=== PATIENT | female | born 1980 | race Caucasian/White ===

== ENCOUNTER 2017-11-25 11:42 | Outpatient (CLI) | payer BC, SELFPAY ==
[2017-11-25 15:56] LABS: HCG Quant, Pregnancy 123 mIU/mL (1-3)
== END 2017-11-25 11:43 ==
PROVIDERS: PCP Nurse Practitioner Family; Visit Provider Obstetrics & Gynecology Gynecology
DX: Z32.01 Encounter for pregnancy test, result positive (principal)
CPT/HCPCS: 36415; 84702

== ENCOUNTER 2017-11-28 10:41 | Outpatient (CLI) | payer BC, SELFPAY ==
[2017-11-28 12:14] LABS: HCG Quant, Pregnancy 387 mIU/mL (1-3)
== END 2017-11-28 10:42 ==
PROVIDERS: PCP Nurse Practitioner Family; Visit Provider Obstetrics & Gynecology Gynecology
DX: Z32.01 Encounter for pregnancy test, result positive (principal)
CPT/HCPCS: 36415; 84702

== ENCOUNTER 2018-01-12 10:15 | Outpatient (CLI) | payer BC, SELFPAY ==
[2018-01-12 10:58] LABS: Abs Immature Grans 0.02 k/cumm (0.0-0.09); Absolute Basophil Count 0.02 k/cumm (0.0-0.2); Absolute Lymphocyte Count 1.68 k/cumm (1.2-3.4); Absolute Monocyte Count 0.47 k/cumm (0.11-0.7); Absolute Neutrophil Count 5.63 k/cumm (1.2-6.7); Basophils % 0.3; Eosinophils % 1.3; HCT 37.6 % (36.0-46.0); HGB 12.8 g/dL (12.0-15.5); Immature Grans % 0.3; Lymphocytes % 21.2; Mean Corpuscular Hemoglobin 29.8 pg (27.0-33.0); Mean Corpuscular Volume 87.6 fL (80-95); Mean Platelet Volume 10.1 fL (8.0-11.0); Monocytes % 5.9; Platelet Count 190 x1000/uL (130-400); RBC 4.29 m/cumm (4.00-5.20); RBC Distribution Width 13.2 % (11.7-14.6); White Blood Cell Count 7.92 k/cumm (4.4-10.8)
[2018-01-12 11:46] LABS: TSH (W/Ref FT4) 2.13 uIU/mL (0.358-3.74)
[2018-01-12 12:35] LABS: *AMPHETAMINES SCREEN URINE Negative (Negative); *BARBITURATES SCREEN URINE Negative (Negative); *BENZODIAZEPINES SCREEN URINE Negative (Negative); Cannabinoids THC Negative (Negative); Cocaine Screen,Urine Negative (Negative); METHADONE URINE SCREEN Negative (Negative); OPIATES URINE SCREEN Negative (Negative)
[2018-01-12 12:38] LABS: Tricyclic Antidepressants Negative (Negative)
[2018-01-13 11:25] LABS: HIV-1/2 Ag & Ab Screen Negative (NEGAT)
[2018-01-13 11:25] LABS: Hepatitis B Surface Ag Negative (NEGAT)
[2018-01-13 11:37] LABS: Rubella IgG Ab (UVM) Positive; Syphilis Serology (RPR) Negative (Negative); Varicella IgG Antibody Positive
[2018-01-13 12:13] LABS: Hepatitis C Ab w Rflx HCV PCR Negative (NEGAT)
[2018-01-15 04:06] LABS: Buprenorphine Negative; Norbuprenorphine Negative
== END 2018-01-12 10:35 ==
PROVIDERS: PCP Nurse Practitioner Family; Visit Provider Advanced Practice Midwife
DX: Z34.91 Encounter for supervision of normal pregnancy, unspecified, first trimester (principal); Z11.59 Encounter for screening for other viral diseases; Z11.4 Encounter for screening for human immunodeficiency virus [HIV]; Z01.84 Encounter for antibody response examination
CPT/HCPCS: 36415; 80307; 86787; 86803; 86850; 86900; 86901; 87340; 87389; 84443; 85025; 86592; 86762; 87086

== ENCOUNTER 2018-01-18 08:07 | Outpatient (CLI) | payer BC, SELFPAY ==
[2018-01-18 08:37] LABS: Kit/Specimen SENT
== END 2018-01-18 08:27 ==
PROVIDERS: PCP Nurse Practitioner Family; Visit Provider Obstetrics & Gynecology Gynecology
DX: O09.511 Supervision of elderly primigravida, first trimester (principal)
CPT/HCPCS: 36415

== ENCOUNTER 2018-01-18 10:25 | Outpatient (REF) | payer BC, SELFPAY ==
[2018-01-19 14:48] LABS: Chlamydia Result Negative; GC Result Negative; Specimen Description URINE
== END 2018-01-18 10:45 ==
LOC: LBN 10:25
PROVIDERS: PCP Nurse Practitioner Family; Visit Provider Advanced Practice Midwife
DX: Z34.90 Encounter for supervision of normal pregnancy, unspecified, unspecified trimester (principal); Z11.3 Encounter for screening for infections with a predominantly sexual mode of transmission
CPT/HCPCS: 87491; 87591

== ENCOUNTER 2018-01-27 01:20 | Outpatient (CLI) | payer BC, SELFPAY ==
--- NOTE | 2018-01-27 09:30 | DI.US_ITS ---
SYMPTOMS/DIAGNOSIS: PRELIMINARY MORPHOLOGY PRE CERCLAGE, H/O INCOMPETENT CERVIX , O09.299 OB ULTRASOUND: OB ultrasound was performed utilizing first trimester protocol. The biometry is consistent with a gestational age of 13 weeks 5 days and an EDC of for this single fetus. The placenta is posterior with no evidence of placenta previa. There is a normal quantity of amniotic fluid. cardiac activity observed at a rate of 158 bpm. Many abnormalities cannot be diagnosed. A normal exam does not exclude a congenital anomaly. Radiology No. [id number] LMP: Exam Date : 01/27/18 [facility] wks days on EDC ([facility]) Confirmed: HISTORY: early morphology ---- PREDICTED GESTATIONAL AGE NUMBER 13+1 weeks with a range of 12+1 weeks to 14+1 weeks. 1 Determined by 1STUS X LMP___HISTORY Info. pertaining to fetus # PLACENTA PRESENTATION Grade 0 Cephalic___ Anterior___Posterior X Breech____ Right Left Transverse(head right___ Fundal___Low-lying___Previa___ Transverse(head left___ Varying X BIOMETRY AMNIOTIC FLUID BPD: 23 mm 13+6 weeks Normal HC: 92 mm 14+1 weeks AC: 70 mm 13+4 weeks FL: 11 mm 13+2 weeks AMNIOTIC FLUID INDEX >26 WK CRL: mm weeks Cisterna Magna: 2 mm CI: 75 RUQ: LUQ Cerebellum: 1.2 cm EFW: grams Percentile RLQ: LLQ Total: cms Composite AGE= 13+5 wks EDC by US 07/30/18 BIOPHYSICAL PROFILE ANATOMY IDENTIFIED SCORE 0/2 Heart: 4-Chamber___Rate: 158 BPM LVOT: RVOT: Amniotic Fluid(>2cms)____ Stomach: X Kidneys: X Respirations (>30 secs) Bladder: X Post. Fossa: Body Flex/Extension 3 vessel cord: Ventricles: cord insertion: X Lips:____ Extremity Flex/Extension spinal morphology: Nose: Total Score= Palate: NS=not seen Comments: Limited visualization due to patient body habitus and patient too early for survey.
== END 2018-01-27 01:40 ==
PROVIDERS: PCP Nurse Practitioner Family; Visit Provider Obstetrics & Gynecology Gynecology
DX: O09.291 Supervision of pregnancy with other poor reproductive or obstetric history, first trimester (principal); O34.31 Maternal care for cervical incompetence, first trimester
CPT/HCPCS: 76801

== ENCOUNTER 2018-01-30 16:25 | Outpatient (CLI) | payer BC, SELFPAY ==
[2018-01-30 17:23] LABS: HCT 34.9 % (36.0-46.0); HGB 11.9 g/dL (12.0-15.5); Mean Corp. HGB Concentration 34.1 g/dL (32.0-36.0); Mean Corpuscular Hemoglobin 29.5 pg (27.0-33.0); Mean Corpuscular Volume 86.6 fL (80-95); Mean Platelet Volume 10.1 fL (8.0-11.0); Platelet Count 225 x1000/uL (130-400); RBC 4.03 m/cumm (4.00-5.20); RBC Distribution Width 13.1 % (11.7-14.6); White Blood Cell Count 9.08 k/cumm (4.4-10.8)
== END 2018-01-30 16:45 ==
PROVIDERS: PCP Nurse Practitioner Family; Visit Provider Obstetrics & Gynecology Gynecology
DX: Z01.818 Encounter for other preprocedural examination (principal); Z01.84 Encounter for antibody response examination; O34.31 Maternal care for cervical incompetence, first trimester
CPT/HCPCS: 36415; 85027; 86850; 86900; 86901

== ENCOUNTER 2018-02-01 07:47 | Day surgery (SDC) | payer BC, SELFPAY ==
--- NOTE | 2018-01-31 17:30 | HPE_ITS ---
Date of service: 01/30/18 Time of Service: 17:29 Assessment and Plan (1) Hypothyroidism (acquired): Current visit: Yes Status: Chronic (2) Hx of incompetent cervix, currently : Current visit: No Status: Suspected (3) BMI 45.0-49.9, adult: Current visit: No Status: Chronic (4) Preop examination: Current visit: No Status: Acute I reviewed the risks and benefits of the procedure including the risk of infection damage to bladder or bowel and the risk of causing labor possibly resulting in miscarriage baby patient signed informed consent her questions were answered she will be n.p.o. after midnight. History of Present Illness Chief Complaint: Preoperative history and physical Narrative: Patient is a 37-year-old 010 female currently 13 weeks 5 days estimated gestational age who presents for a preoperative history and physical in anticipation of a Alvarez's cervical cerclage to be performed on 02/01/18. Patient has a history of an incompetent cervix and 08/12/2016 delivered a nonviable fetus at 18 weeks 6 days after she presented with painless cervical dilatation after a IVF conception. She was counseled at that time and at the start of this that she would benefit from a cervical cerclage. Patient has undergone dating by first trimester ultrasound her estimated date of delivery 08/03/2018. She underwent [place] testing that showed low probability for aneuploidy and had a normal first trimester ultrasound. Her current OB issues: 1) elevated BMI for which she takes 81 mg of low-dose aspirin daily. 2) hypothyroidism currently stable Review of Systems Constitutional Reports system reviewed and no additional complaints, except as docu ENT Reports system reviewed and no additional complaints, except as docu Cardiovascular Reports as per HPI Respiratory Reports as per HPI Gastrointestinal Reports as per HPI Genitourinary Reports system reviewed and no additional complaints, except as docu PFSH Family History Mother Essential hypertension Trigeminal neuralgia of right side of face Lupus (systemic lupus erythematosus) Father Diabetes Essential hypertension Medical History Hx of female infertility BMI 45.0-49.9, adult (Chronic) PCOS (polycystic ovarian syndrome) (Chronic) Hypothyroidism (acquired) (Chronic) Social History adopted: No foster care: No household members: spouse, children and other details: Dariel, stepdaughter current occupational status: employed and other details: [employer] 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 Smoking/Tobacco Use Status: Never alcohol intake: current alcohol intake frequency: a few times a month substance use type: does not use special josef needs: No agree to transfusion: Yes seatbelt use: always helmet use: Yes drive intox or ride w/ intox log driver: No water heater temp set < 120 deg: Yes working smoke detector in home: Yes fire extinguisher in home: Yes carbon monox detector in home: Yes firearms in home: No do you feel safe at home: Yes victim of physical abuse: No victim of emotional abuse: No victim of sexual abuse: No Surgical History Colonoscopy - IV Sedation (12/01/15) History History 2 2 Para Hx # Term Pregnancies 0 Multiple births Hx # Pregnancies Ectopic pregnancies AB induced Hx Number of Living Children 0 AB spontaneous 1 Past Pregnancies Del. Date GA/Weeks # Outcome Route Wgt Sex Labor Lgth Anesthesia Location Prov Complic 08/12/16 19 No Successful vaginal Male Delivery Date: 08/12/16 On 01/18/18 @ 18:11 Anya Bradford IVF . Painless cervical dilatation at 18-6/7 weeks. Membranes prolapsing into the vagina at time of initial presentation. Went on to have an induction of labor delivered a non-viable named Amador Catherine. Meds Home Medications Medication Instructions Recorded Confirmed Type omega-3 fatty acids-fish oil [Fish 1 tab PO HS 03/16/14 01/30/18 History Oil] metformin 1,000 mg PO Q12H #180 tab 11/15/17 01/30/18 Rx levothyroxine 100 mcg PO DAILY 30 Days #90 11/23/17 01/30/18 Rx tab-cap aspirin [Lo-Dose Aspirin Ec] 81 mg PO DAILY tab-cap 12/06/17 01/30/18 History cholecalciferol (vitamin D3) 800 unit PO DAILY 12/06/17 01/30/18 History [Vitamin D3] vit,[id number] 1 tab-cap PO DAILY tab-cap 12/06/17 01/30/18 History [Prenatabs Rx Tablet] inositol 500 mg tablet 1,000 mg PO BID tab 01/12/18 01/30/18 History Allergies Allergy/AdvReac Type Severity Reaction Status Date / Time pollen extracts AdvReac Intermediate Unverified 01/30/18 15:37 cilantro Allergy Intermediate Numb Uncoded 01/30/18 15:37 mouth, hives cigarette smoke AdvReac Intermediate congestion Uncoded 01/30/18 15:37 dust AdvReac Intermediate congestion Uncoded 01/30/18 15:37 Exam Const General: cooperative, healthy appearing and comfortable Nutritional Appearance: obese Orientation: alert, awake and oriented x3 Neck Neck: normal visual inspection Thyroid: thyroid normal Chest Chest: normal inspection of the chest Resp Effort & Inspection: normal respiratory effort Auscultation: clear to auscultation bilaterally Cardio Palpation: normal PMI Rate: regular rate Rhythm: regular rhythm Heart Sounds: S1 normal and S2 normal GI Inspection: normal to inspection Palpation: soft and no hepatosplenomegaly General: deferred OB/External & Speculum: other
[2018-02-01 08:18] VITALS: BP 114/76; PULSE 93; RESP 18; TEMP 36.7; O2SAT 98
[2018-02-01] MEDS: Lactated Ringers 1,000 ML 125 ML IV (08:25)
[2018-02-01] MEDS: Bupivacaine 0.25% Pres-Free 30 ML VIAL (09:47)
--- NOTE | 2018-02-01 11:21 | W.PM.DSUDISC ---
Discharge Plan Disposition Patient Disposition: HOME Condition: Good Discharge Details Attending Provider: Anya Bradford Primary Care Provider: Cata Hoskins Home Meds and New Rx's Prescriptions: No Action inositol 500 mg tablet 1,000 mg PO BID RF: 0 metformin 1,000 MG tablet 1,000 mg PO Q12H Qty: 180 RF: 4 levothyroxine 100 MCG tablet 100 mcg PO DAILY 30 Days Qty: 90 RF: 3 aspirin [Lo-Dose Aspirin] 81 MG tablet,delayed release (DR/EC) 81 mg PO DAILY RF: 0 vit,[id number] [Prenatabs Rx] 1 EACH tablet 1 tab-cap PO DAILY RF: 0 cholecalciferol (vitamin D3) [Vitamin D3] 400 UNIT tablet 800 unit PO DAILY RF: 0 omega-3 fatty acids-fish oil [Fish Oil] 1 EACH capsule 1 tab PO HS RF: 0 Discharge Instructions Additional Instructions: Postoperative Instructions Outpatient Gynecology Because there will be medication in your system for the next 24 hours, you may feel a little sleepy. Your coordination will be affected. Therefore: Do not drive or operate dangerous equipment for 24 hours. Do not drink alcoholic beverages for 24 hours (not even beer). Plan to go home and rest for the day. Rest, drink liquids and eat lightly for the rest of the day. Do not plan to return to normal activity for two full days. Some women require 5-7 days to feel 100 percent. Arrange to have someone stay with you for the rest of the day. You may have a sore throat or hoarseness after surgery. This usually lasts a short time and is relieved by drinking liquids. If hoarseness persists longer than 24 hours, please contact the anesthesia department by calling the hospital. Take Tylenol for cramping. If that does not work, you may be too active so try cutting back on your activities. You should be able to urinate as usual following the surgery. You may spot for a week after surgery. Please call the office for an appointment for [address] Bradford. You may take a shower or bath. Use pads, not tampons. Please report any of the following conditions or any questions regarding your condition to your doctor and the Day Surgery Unit: Increased drainage or foul smelling drainage. Temperature of 101 F or above. Excessive pain or cramping not relieved with Tylenol and rest. If you are unable to contact your doctor, contact the hospital at [phone]. Dr. Bradford's pager: [phone]. Cell phone [phone]. Continue all your regular medications unless directed otherwise. Revised 09/15/10 Activity:: Activity as Tolerated Diet:: As Tolerated Discharge Orders Discharge Orders: Discharge Order (Routine); Ordered 02/01/18 Ordered By: Anya Bradford DS: Diagnosis Discharge Diagnosis (1) Hypothyroidism (acquired): Status: Chronic (2) Hx of incompetent cervix, currently : Status: Suspected (3) BMI 45.0-49.9, adult: Status: Chronic (4) Alvarez cerclage present in second trimester: Status: Acute
--- NOTE | 2018-02-01 11:26 | PDOC.DSDIS_ITS ---
Discharge Plan Disposition Patient Disposition: HOME Condition: Good Discharge Details Attending Provider: Anya Bradford Primary Care Provider: Cata Hoskins Home Meds and New Rx's Prescriptions: No Action inositol 500 mg tablet 1,000 mg PO BID RF: 0 metformin 1,000 MG tablet 1,000 mg PO Q12H Qty: 180 RF: 4 levothyroxine 100 MCG tablet 100 mcg PO DAILY 30 Days Qty: 90 RF: 3 aspirin [Lo-Dose Aspirin] 81 MG tablet,delayed release (DR/EC) 81 mg PO DAILY RF: 0 vit,[id number] [Prenatabs Rx] 1 EACH tablet 1 tab-cap PO DAILY RF: 0 cholecalciferol (vitamin D3) [Vitamin D3] 400 UNIT tablet 800 unit PO DAILY RF: 0 omega-3 fatty acids-fish oil [Fish Oil] 1 EACH capsule 1 tab PO HS RF: 0 Discharge Instructions Additional Instructions: Postoperative Instructions Outpatient Gynecology * Because there will be medication in your system for the next 24 hours, you may feel a little sleepy. Your coordination will be affected. Therefore: Do not drive or operate dangerous equipment for 24 hours. Do not drink alcoholic beverages for 24 hours (not even beer). Plan to go home and rest for the day. * Rest, drink liquids and eat lightly for the rest of the day. Do not plan to return to normal activity for two full days. Some women require 5-7 days to feel 100 percent. * Arrange to have someone stay with you for the rest of the day. * You may have a sore throat or hoarseness after surgery. This usually lasts a short time and is relieved by drinking liquids. If hoarseness persists longer than 24 hours, please contact the anesthesia department by calling the hospital. * Take Tylenol for cramping. If that does not work, you may be too active so try cutting back on your activities. * You should be able to urinate as usual following the surgery. * You may spot for a week after surgery. * Please call the office for an appointment for [address] Bradford. * You may take a shower or bath. Use pads, not tampons. * Please report any of the following conditions or any questions regarding your condition to your doctor and the Day Surgery Unit: Increased drainage or foul smelling drainage. Temperature of 101 F or above. Excessive pain or cramping not relieved with Tylenol and rest. * If you are unable to contact your doctor, contact the hospital at . Dr. Bradford's pager: [phone]. Cell phone [phone]. * Continue all your regular medications unless directed otherwise. Revised 09/15/10 Activity:: Activity as Tolerated Diet:: As Tolerated Discharge Orders Discharge Orders: Discharge Order (Routine); Ordered 02/01/18 Ordered By: Anya Bradford DS: Diagnosis Discharge Diagnosis (1) Hypothyroidism (acquired): Status: Chronic (2) Hx of incompetent cervix, currently : Status: Suspected (3) BMI 45.0-49.9, adult: Status: Chronic (4) Alvarez cerclage present in second trimester: Status: Acute
[2018-02-01 11:35] VITALS: BP 111/72; PULSE 80; RESP 18; TEMP 36.8; O2SAT 99
[2018-02-01 13:40] VITALS: BP 101/64; PULSE 89; RESP 16; TEMP 37.1; O2SAT 99
--- NOTE | 2018-02-02 16:54 | ROE_ITS ---
DATE OF PROCEDURE: February 01, 2018 PREOPERATIVE DIAGNOSIS: History of incompetent cervix. POSTOPERATIVE DIAGNOSIS: Same. PROCEDURE: Alvarez cerclage. SURGEON: Anya Bradford M.D. VULNERABILITY RESEARCHER: None. ANESTHESIA: Spinal, Nasir Chacon CRNA FLUIDS: 500 cc of crystalloid. URINE OUTPUT: 75 cc of clear ismael urine out via in and out catheterization during the procedure. ESTIMATED BLOOD LOSS: 50 cc INDICATIONS: Sftaru-wqxlh-aojw-old, G2, P0 female with a history of a miscarriage at 18 weeks 6 days in August of 2016. The patient presented to the hospital with painless cervical dilatation and went on to deliver a nonviable fetus. She was advised to have a cerclage during this . FINDINGS AT THE TIME OF SURGERY: The cervix was approximately 3 cm in length with a prominent ectrop ion that bleeds easily to touch. heart tones in the 140s prior to and after the procedure. DESCRIPTION OF PROCEDURE: The patient was taken to the Operating Room where a low spinal anesthesia was administered without difficulty. She was then placed in the dorsal lithotomy position in [facility]. SCDs were in place. A bivalve speculum was placed into the vagina after the patient had been prepped and draped in the usual sterile fashion. The anterior lip of the cervix at the 12 o'cl ock position was held with a ring forceps. This allowed gentle traction to be placed on the cervix a nd the first suture using the 5-mm Mersilene tape was inserted and pulled through. A series of purse string sutures was then performed, two on the 11 and 7 o'clock position on the patient's right side, another at the 6 o'clock position, and two more on the 4 and 2 o'clock position. The Mersilene tape was then cinched tight and tied with the knot at the 12 o'clock position. The instruments were remov ed from the patient's vagina. There was no evidence of bleeding from the external os. There was ble eding from the patient's ectropion that was controlled with application of a sterile 4x4. In and out catheterization was performed prior to the beginning to the procedure and after the procedure as pre viously noted. The patient was then placed in the dorsal supine position and transported to the [facility] area in stable condition. All sponge, lap, and needle counts were correct x2.
== END 2018-02-01 15:07 | disposition home or self-care (01) ==
PROVIDERS: PCP Nurse Practitioner Family; Visit Provider Obstetrics & Gynecology Gynecology
PROC: 0UVC7ZZ Restriction of Cervix, Via Natural or Artificial Opening (ICD-10-PCS; CPT 57700; principal; 2018-02-01 08:30)
DX: O34.31 Maternal care for cervical incompetence, first trimester (principal); Z3A.13 13 weeks gestation of pregnancy; O99.211 Obesity complicating pregnancy, first trimester; E66.9 Obesity, unspecified; Z68.42 Body mass index [BMI] 45.0-49.9, adult; O99.281 Endocrine, nutritional and metabolic diseases complicating pregnancy, first trimester; N86 Erosion and ectropion of cervix uteri; E03.9 Hypothyroidism, unspecified
CPT/HCPCS: 59320; NC

== ENCOUNTER 2018-02-10 12:04 | Outpatient (CLI) | payer BC, SELFPAY ==
[2018-02-10 13:17] LABS: Glucose,1 Hr (Glucola) 117 mg/dL (80-140)
== END 2018-02-10 12:24 ==
PROVIDERS: Advanced Practice Midwife; PCP Nurse Practitioner Family; Visit Provider Obstetrics & Gynecology Gynecology
DX: Z34.91 Encounter for supervision of normal pregnancy, unspecified, first trimester (principal)
CPT/HCPCS: 36415; 82950

== ENCOUNTER 2018-02-23 00:28 | Outpatient (CLI) | payer BC, SELFPAY ==
--- NOTE | 2018-02-23 07:41 | DI.US_ITS ---
SYMPTOM/DIAGNOSIS: S/P CERCLAGE, ? CERV LENGTH O34.30 LIMITED OBSTETRICAL ULTRASOUND: 02/23/18 Limited ultrasound was performed to evaluate cervical length. Cervical length is measured at 5.1 cm. The placenta is posterior with no evidence of placenta previa. There is a normal quantity of amniotic fluid. cardiac activity observed at a rate of 155 BPM. Many abnormalities cannot be diagnosed. A normal exam does not exclude a congenital anomaly. Radiology No. [id number] LMP: Exam Date: 02.23.2018 [facility] wks days on EDC ([facility]) Confirmed: HISTORY: CERCLAGE PLACED 02/01 ---- PREDICTED GESTATIONAL AGE NUMBER 17 - weeks with a range of week to weeks. 1 Determined by___1STUS___LMP___HISTORY Info. pertaining to fetus # PLACENTA PRESENTATION Grade I Cephalic_XX__ Anterior___Posterior__XX_ Breech____ Right Left Transverse(head right___ Fundal___Low-lying___Previa___ Transverse(head left___ Varying BIOMETRY AMNIOTIC FLUID BPD: mm weeks Normal HC: mm weeks AC: mm weeks FL: mm weeks AMNIOTIC FLUID INDEX >26 WK CRL: mm weeks Cisterna Magna: mm CI: RUQ: LUQ Cerebellum: cm EFW: grams Percentile RLQ: LLQ Total: cms Composite AGE= wks EDC by US BIOPHYSICAL PROFILE ANATOMY IDENTIFIED SCORE 0/2 Heart: 4-Chamber___Rate:BPM__155 BPM___ LVOT: RVOT: Amniotic Fluid(>2cms)____ Stomach: Kidneys: Respirations (>30 secs) Bladder: Post. Fossa: Body Flex/Extension 3 vessel cord: Ventricles: cord insertion: Lips:____ Extremity Flex/Extension spinal morphology: Nose: Total Score= Palate: NS=not seen
== END 2018-02-23 00:48 ==
PROVIDERS: PCP Nurse Practitioner Family; Visit Provider Obstetrics & Gynecology Gynecology
DX: O34.32 Maternal care for cervical incompetence, second trimester (principal)
CPT/HCPCS: 76815

== ENCOUNTER 2018-03-22 10:48 | Inpatient (IN) | payer BC, SELFPAY ==
[2018-03-22 10:52] VITALS: BP 149/117; PULSE 91; RESP 16; TEMP 36.8; O2SAT 96
--- NOTE | 2018-03-22 10:52 | W.ED.GENAD ---
Discharge Plan Discharge Details Chief Complaint: PsychEval Primary Care Provider: Cata Hoskins ED Provider: Maureen Alfonso Home Meds and New Rx's Prescriptions: No Action levothyroxine 100 MCG tablet 100 mcg PO DAILY 30 Days Qty: 90 RF: 3 aspirin [Lo-Dose Aspirin] 81 MG tablet,delayed release (DR/EC) 81 mg PO DAILY RF: 0 vit,[id number] [Prenatabs Rx] 1 EACH tablet 1 tab-cap PO DAILY RF: 0 cholecalciferol (vitamin D3) [Vitamin D3] 400 UNIT tablet 800 unit PO DAILY RF: 0 omega-3 fatty acids-fish oil [Fish Oil] 1 EACH capsule 1 tab PO HS RF: 0 HPI General Date/Time Provider Initiated Documentation: 03/22/18 10:52. Related Data Home Medications Medication Instructions Recorded Confirmed omega-3 fatty acids-fish oil [Fish 1 tab PO HS 03/16/14 03/20/18 Oil] levothyroxine 100 mcg PO DAILY 30 Days #90 11/23/17 03/20/18 tab-cap aspirin [Lo-Dose Aspirin Ec] 81 mg PO DAILY tab-cap 12/06/17 03/20/18 cholecalciferol (vitamin D3) 800 unit PO DAILY 12/06/17 03/20/18 [Vitamin D3] vit,[id number]-qmoxr 1 tab-cap PO DAILY tab-cap 12/06/17 03/20/18 [Prenatabs Rx Tablet] Previous Rx's Medication Instructions Recorded levothyroxine 100 mcg PO DAILY 30 Days #90 11/23/17 tab-cap Allergies Allergy/AdvReac Type Severity Reaction Status Date / Time pollen extracts AdvReac Intermediate Unverified 03/20/18 08:05 cilantro Allergy Severe Numb Uncoded 03/20/18 08:05 mouth, hives cigarette smoke AdvReac Intermediate congestion Uncoded 03/20/18 08:05 dust AdvReac Intermediate congestion Uncoded 03/20/18 08:05 Review of Systems Review of Systems Constitutional: denies fevers Eyes: denies eye pain ENT: denies facial pain, dental pain, sore throat Cardiovascular: denies chest pain, edema Respiratory: denies SOB, cough GI: denies abdominal pain, vomiting, diarrhea : denies flank pain MSK: denies back pain, neck pain, arthralgias, myalgias Skin: denies rash Neuro: denies headaches, lightheadedness, weakness PFSH Antonio chen present (Acute) Hx of female infertility BMI 45.0-49.9, adult (Chronic) PCOS (polycystic ovarian syndrome) (Chronic) Hypothyroidism (acquired) (Chronic) Family History Mother Essential hypertension Trigeminal neuralgia of right side of face Lupus (systemic lupus erythematosus) Father Diabetes Essential hypertension Colonoscopy - IV Sedation (12/01/15) Family History Mother Essential hypertension Trigeminal neuralgia of right side of face Lupus (systemic lupus erythematosus) Father Diabetes Essential hypertension Medical History Antonio chen present (Acute) Hx of female infertility BMI 45.0-49.9, adult (Chronic) PCOS (polycystic ovarian syndrome) (Chronic) Hypothyroidism (acquired) (Chronic) Social History adopted: No foster care: No household members: spouse, children and other details: brea Vieira current occupational status: employed and other details: [employer] 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 Smoking/Tobacco Use Status: Never alcohol intake: current alcohol intake frequency: a few times a month substance use type: does not use special josef needs: No agree to transfusion: Yes seatbelt use: always helmet use: Yes drive intox or ride w/ intox route delivery service driver: No water heater temp set < 120 deg: Yes working smoke detector in home: Yes fire extinguisher in home: Yes carbon monox detector in home: Yes firearms in home: No do you feel safe at home: Yes victim of physical abuse: No victim of emotional abuse: No victim of sexual abuse: No Surgical History Colonoscopy - IV Sedation (12/01/15) Social History adopted: No foster care: No household members: spouse, children and other details: brea Vieira current occupational status: employed and other details: [employer] 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 Smoking/Tobacco Use Status: Never alcohol intake: current alcohol intake frequency: a few times a month substance use type: does not use special josef needs: No agree to transfusion: Yes seatbelt use: always helmet use: Yes drive intox or ride w/ intox route delivery service driver: No water heater temp set < 120 deg: Yes working smoke detector in home: Yes fire extinguisher in home: Yes carbon monox detector in home: Yes firearms in home: No do you feel safe at home: Yes victim of physical abuse: No victim of emotional abuse: No victim of sexual abuse: No Exam Narrative Exam Narrative: Constitutional: well and psc-kehgt-ilwzemaqo, pleasant, conversing normally HENT: head atraumatic, normocephalic normal inspection, mucous membranes moist Eyes: conjunctiva normal, sclera normal, pupils 3mm b/l Neck: no stridor, normal ROM, trachea midline Chest: normal inspection Resp: normal work of breathing, LCTAB Cardio: normal rate, normal rhythm, no murmur appreciated GI: abdomen soft, non-tender, non-distended Back: normal inspection, no rash Skin: warm, dry, normal color, no rash Neuro: alert, not altered, grossly non-focal, normal tone Ext: no edema Psych: normal mood, normal affect, normal behavior
[2018-03-22 11:47] LABS: Abs Immature Grans 0.03 k/cumm (0.0-0.09); Absolute Basophil Count 0.02 k/cumm (0.0-0.2); Absolute Eosinophil Count 0.06 k/cumm (0.0-0.7); Absolute Lymphocyte Count 1.45 k/cumm (1.2-3.4); Absolute Monocyte Count 0.69 k/cumm (0.11-0.7); Absolute Neutrophil Count 7.55 k/cumm (1.2-6.7); Basophils % 0.2; Eosinophils % 0.6; HCT 34.8 % (36.0-46.0); HGB 11.9 g/dL (12.0-15.5); Immature Grans % 0.3; Lymphocytes % 14.8; Mean Corp. HGB Concentration 34.2 g/dL (32.0-36.0); Mean Corpuscular Hemoglobin 29.8 pg (27.0-33.0); Mean Platelet Volume 9.6 fL (8.0-11.0); Neutrophils % 77.1; Platelet Count 218 x1000/uL (130-400); RBC Distribution Width 13.6 % (11.7-14.6)
--- NOTE | 2018-03-22 11:53 | W.ED.GENAD ---
Discharge Plan Discharge Details Chief Complaint: PsychEval Primary Care Provider: Cata Hoskins ED Provider: Vicenta Ledezma Home Meds and New Rx's Prescriptions: No Action levothyroxine 100 MCG tablet 100 mcg PO DAILY 30 Days Qty: 90 RF: 3 aspirin [Lo-Dose Aspirin] 81 MG tablet,delayed release (DR/EC) 81 mg PO DAILY RF: 0 [id number] [Prenatabs Rx] 1 EACH tablet 1 tab-cap PO DAILY RF: 0 cholecalciferol (vitamin D3) [Vitamin D3] 400 UNIT tablet 800 unit PO DAILY RF: 0 omega-3 fatty acids-fish oil [Fish Oil] 1 EACH capsule 1 tab PO HS RF: 0 Medical Decision Making <WINSTON Granger - Last Filed: 03/23/18 08:00> Patient is a 37-year-old female, accompanied by coworker, with chief complaint of suicidal ideation. Patient is currently 20 weeks , . She reports she began having suicidal ideation for 5 days ago over the weekend. Over the weekend, she developed a plan to hang herself at home. Does not feel safe being at home living by herself. Reports she has had a large amount of stressors recently. No particular, the patient reports she is been very worried as around this time last year, she lost a that was near the same time in course. While this has been going quite well, she continues to be very concerned and anxious regarding her . She reports that yesterday, her yard supervisor, reported that she would not be renewing the patient's contract and that she would need to find a new job. 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 She reports when she was discussing this with her last night, her advised that she begin looking for jobs in [place] with her parents live. Has been expressed that she would be moving to [place] without him. But these things greatly upset the patient which exacerbated her depression, anxiety and suicidal thoughts and she had Chivo been having. On exam, patient seems teary and anxious. She is appropriate and seems to have good insight. She is forward thinking and wants to seek help so that she is able to be safe and have a successful . Does not feel suicidal at this moment but is concerned about being by herself and the impulsivity that she may have. I will consult with mental health as well as Dr. Bradford. Plan to obtain laboratory evaluation. I did note that the patient's blood pressure is elevated, this may be induced anxiety but we will continue to monitor this. Patient was evaluated by Dr. Bradford. She evaluated the patient's abdomen, advised that the heart rate is 145. I did discuss with Dr. Bradford the elevated BP, she also feels this is stress induced. Patient evaluated by mental health. She advised that at this time patient is high risk and should be considered for admission. I discussed this with the patient who in agreement with hospitalization, anything I can do to get help. [facility] admission request to [facility]. Awaiting to hear for possible bed placement. While awaiting placement, patient expressed boredom. She was offered books, coloring, music. Wishes to be moved from department or go home. At this time, we are still awaiting placement. She expressed wishes to leave. however, I am concerned that she is very high risk and should remain involuntarily if she has a change of heart secondary to her multitude of risk factors. I expressed by concern to the patient, expressed by concerns for her safety, and she agrees to stay voluntarily. At the end of my shift, still awaiting to hear from [facility] regarding bed availability. Care transitioned to Jonah Trevizo NP. <Yahir Trevizo NP - Last Filed: 03/22/18 23:33> Care of patient received from Vicenta MONTERO and patient is pending psychiatric admission preferably at [facility]. Patient reassessed and has no change in condition. Patient informed that no beds were available at [facility] at this time and that we are going to attempt to admit patient for comfort measures Informed by nursing yard supervisor that there is unfortunately a lack of patient setters on the inpatient unit so informed patient that she would have to stay in the emergency department that we would attempt to provide as many comfort measures as possible. I did inform staff anesthesiologist that as long as patient is observed that she may have music therapy in the room at this time as I feel that this is appropriate given the circumstances of inability to admit patient and no television access. Patient ordered her normal nightly meds along with some Benadryl to aid with sleep and anxiety. Pending admission patient care was transferred to Dr. Aidan Romo pending bed placement. Patient has no new stated changing condition or complaints. HPI <WINSTON Granger - Last Filed: 03/23/18 08:00> General Mode of arrival: ambulatory. Date/Time Provider Initiated Documentation: 03/22/18 10:52. Limitations to Documentation: no limitations. Information obtained by: patient and family (accompanied by friend/coworker). History of Present Illness 37 year old F presents to the emergency department with the chief complaint of suicidal ideation, described as severe, Patient started experiencing this day(s) (5) and it has been intermittent. Other factors that worsen symptoms (home and work stressors) . Patient notes denies chest pain, cough, fever/chills, headaches, nausea/vomiting, rash, shortness of breath and syncope. Patient did receive the following treatments prior to arrival, none Related Data Home Medications Medication Instructions Recorded Confirmed omega-3 fatty acids-fish oil [Fish 1 tab PO HS 03/16/14 03/22/18 Oil] levothyroxine 100 mcg PO DAILY 30 Days #90 11/23/17 03/22/18 tab-cap aspirin [Lo-Dose Aspirin Ec] 81 mg PO DAILY tab-cap 12/06/17 03/22/18 cholecalciferol (vitamin D3) 800 unit PO DAILY 12/06/17 03/22/18 [Vitamin D3] vit,[id number] 1 tab-cap PO DAILY tab-cap 12/06/17 03/22/18 [Prenatabs Rx Tablet] Previous Rx's Medication Instructions Recorded levothyroxine 100 mcg PO DAILY 30 Days #90 11/23/17 tab-cap Allergies Allergy/AdvReac Type Severity Reaction Status Date / Time pollen extracts AdvReac Intermediate Unverified 03/22/18 10:55 cilantro Allergy Severe Numb Uncoded 03/22/18 10:55 mouth, hives cigarette smoke AdvReac Intermediate congestion Uncoded 03/22/18 10:55 dust AdvReac Intermediate congestion Uncoded 03/22/18 10:55 General Stated Complaint: PsychEval NATALI: 2 Review of Systems <WINSTON Granger - Last Filed: 03/23/18 08:00> Constitutional Reports as per HPI, Denies chills, Denies fatigue, Denies fever(s), Denies headache(s) and Denies weakness Eyes Denies change in vision ENT Denies headache(s) and Reports other (states she had tingling in her lips when worked up at school, this has since resolved) Cardiovascular Reports as per HPI, Denies chest pain, Denies lightheadedness, Denies dyspnea and Denies dyspnea on exertion Respiratory Denies dyspnea and Denies dyspnea on exertion Gastrointestinal Reports as per HPI, Denies abdominal pain, Denies change in bowel habits, Denies nausea and Denies vomiting Genitourinary Reports as per HPI, Denies abnormal vaginal bleeding, Denies flank pain and Reports other (patient is 20 weeks ) Musculoskeletal Denies abnormal gait Integumentary/Breasts Reports as per HPI and Denies rash Neurologic Denies abnormal gait, Denies headache(s) and Denies weakness Psychiatric Reports as per HPI, Reports anxiety, Reports depression, Denies hallucinations, Denies homicidal ideation and Reports suicidal ideation Endocrine Denies fatigue PFS <WINSTON Granger - Last Filed: 03/23/18 08:00> Antonio chen present (Acute) Hx of female infertility BMI 45.0-49.9, adult (Chronic) PCOS (polycystic ovarian syndrome) (Chronic) Hypothyroidism (acquired) (Chronic) Family History Mother Essential hypertension Trigeminal neuralgia of right side of face Lupus (systemic lupus erythematosus) Father Diabetes Essential hypertension Colonoscopy - IV Sedation (12/01/15) Family History Mother Essential hypertension Trigeminal neuralgia of right side of face Lupus (systemic lupus erythematosus) Father Diabetes Essential hypertension Medical History Antonio chen present (Acute) Hx of female infertility BMI 45.0-49.9, adult (Chronic) PCOS (polycystic ovarian syndrome) (Chronic) Hypothyroidism (acquired) (Chronic) Social History adopted: No foster care: No household members: spouse, children and other details: brea Vieira current occupational status: employed and other details: [employer]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 Smoking/Tobacco Use Status: Never alcohol intake: current alcohol intake frequency: a few times a month substance use type: does not use special josef needs: No agree to transfusion: Yes seatbelt use: always helmet use: Yes drive intox or ride w/ intox tower truck driver: No water heater temp set < 120 deg: Yes working smoke detector in home: Yes fire extinguisher in home: Yes carbon monox detector in home: Yes firearms in home: No do you feel safe at home: Yes victim of physical abuse: No victim of emotional abuse: No victim of sexual abuse: No Surgical History Colonoscopy - IV Sedation (12/01/15) Social History adopted: No foster care: No household members: spouse, children and other details: brea Vieira current occupational status: employed and other details: [employer]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 Smoking/Tobacco Use Status: Never alcohol intake: current alcohol intake frequency: a few times a month substance use type: does not use special josef needs: No agree to transfusion: Yes seatbelt use: always helmet use: Yes drive intox or ride w/ intox tower truck driver: No water heater temp set < 120 deg: Yes working smoke detector in home: Yes fire extinguisher in home: Yes carbon monox detector in home: Yes firearms in home: No do you feel safe at home: Yes victim of physical abuse: No victim of emotional abuse: No victim of sexual abuse: No History History 2 Para Hx # Term Pregnancies 0 Multiple births 0 Hx # Pregnancies Ectopic pregnancies AB induced 0 Hx Number of Living Children 0 AB spontaneous 1 Exam <WINSTON Granger - Last Filed: 03/23/18 08:00> Const General: cooperative, healthy appearing, comfortable, in distress (patient appears anxious and teary), well developed and well groomed Nutritional Appearance: well nourished and overweight Orientation: alert and awake HENMT Head: normal to inspection Ears: hearing grossly normal bilaterally Face and sinus: normal facial exam and sinuses nontender Mouth: moist mucous membranes Eyes General: appearance normal, both eyes and all related structures Resp Effort & Inspection: normal respiratory effort, able to speak in complete sentences and no respiratory distress Auscultation: clear to auscultation bilaterally, no rales, no rhonchi and no wheezes Cardio Rate: regular rate Rhythm: regular rhythm Heart Sounds: S1 normal and S2 normal Skin General skin exam: no rashes or lesions noted Trauma: no lacerations or abrasions Neuro General: alert and awake Cognition: normal cognition Speech: speech normal Gait: normal gait Psych Appearance: grossly normal and well kempt Mental Status: mental status grossly normal Speech and Movement: speech and movement normal Mood: anxious mood Affect: sad and anxious affect Attitude: cooperative Thought Process: normal Thought Content: suicidality Insight: insight good Judgment: judgment good Course <WINSTON Granger - Last Filed: 03/23/18 08:00> Vital Signs Temperature 36.8 C 03/22/18 10:52 Pulse 91 H 03/22/18 10:52 Respiratory Rate 16 03/22/18 10:52 Blood Pressure 149/117 H 03/22/18 10:52 Pulse Oximetry 96 03/22/18 10:52 Temperature 36.8 C 03/22/18 10:52 Temperature Source Skin 03/22/18 10:52 Pulse 91 H 03/22/18 10:52 Respiratory Rate 16 03/22/18 10:52 Respiratory Effort 03/22/18 10:56 Blood Pressure 149/117 H 03/22/18 10:52 Blood Pressure Position Sitting 03/22/18 10:52 Pulse Oximetry 96 03/22/18 10:52 Oxygen Delivery Method Room Air 03/22/18 10:52 Oxygen Flow Rate 0 03/22/18 10:52 Pain Level 0 03/22/18 10:52 Lab/Test Results Lab/Test Results: Laboratory Tests Range/Units 03/22/18 11:38 WBC (4.4-10.8) k/cumm 9.80 RBC (4.00-5.20) m/cumm 4.00 Hgb (12.0-15.5) g/dL 11.9 L Hct (36.0-46.0) % 34.8 L MCV (80-95) fL 87.0 MCH (27.0-33.0) pg 29.8 MCHC (32.0-36.0) g/dL 34.2 RDW (11.7-14.6) % 13.6 Plt Count (130-400) x1000/uL 218 MPV (8.0-11.0) fL 9.6 Immature Gran % 0.3 Neutrophils % 77.1 Lymphocytes % 14.8 Monocytes % 7.0 Eosinophils % 0.6 Basophils % 0.2 Absolute Neutrophils (1.2-6.7) k/cumm 7.55 H Absolute Lymphocytes (1.2-3.4) k/cumm 1.45 Absolute Monocytes (0.11-0.7) k/cumm 0.69 Absolute Eosinophils (0.0-0.7) k/cumm 0.06 Absolute Basophils (0.0-0.2) k/cumm 0.02 Sign Out <WINSTON Granger - Last Filed: 03/23/18 08:00> Sign Out Data: Sign Out Comment: Care signed out to Jonah Trevizo NP. Disposition made, awaiting bed placement Last updated by Vicenta Ledezma PA at 03/22/18 16:31 Sign Out Comment: Care of patient signed out to Dr. Aidan Romo pending psychiatric bed availability and acceptance. Last updated by Yahir Trevizo NP at 03/22/18 23:34 Post-Handoff Eval: patient sleeping, has been so during my shift. Plan to be in ED overnight and resume bed search in the AM. Patient will be signed out in AM pending this search Sign Out Comment: awaiting psychiatric bed placement, f/u with [facility] Last updated by Leandro Romo MD at 03/23/18 00:38
--- NOTE | 2018-03-22 11:56 | ED.GENADUL_ITS ---
Discharge Plan Discharge Details Chief Complaint: PsychEval Primary Care Provider: Cata Hoskins ED Provider: Vicenta Ledezma Home Meds and New Rx's Prescriptions: No Action levothyroxine 100 MCG tablet 100 mcg PO DAILY 30 Days Qty: 90 RF: 3 aspirin [Lo-Dose Aspirin] 81 MG tablet,delayed release (DR/EC) 81 mg PO DAILY RF: 0 vit,[id number] [Prenatabs Rx] 1 EACH tablet 1 tab-cap PO DAILY RF: 0 cholecalciferol (vitamin D3) [Vitamin D3] 400 UNIT tablet 800 unit PO DAILY RF: 0 omega-3 fatty acids-fish oil [Fish Oil] 1 EACH capsule 1 tab PO HS RF: 0 Medical Decision Making <WINSTON Granger - Last Filed: 03/23/18 08:00> Patient is a 37-year-old female, accompanied by coworker, with chief complaint of suicidal ideation. Patient is currently 20 weeks , . She reports she began having suicidal ideation for 5 days ago over the weekend. Over the weekend, she developed a plan to hang herself at home. Does not feel safe being at home living by herself. Reports she has had a large amount of stressors recently. No particular, the patient reports she is been very worried as around this time last year, she lost a that was near the same time in course. While this has been going quite well, she continues to be very concerned and anxious regarding her . She reports that yesterday, her cap and hat production supervisor, reported that she would not be renewing the patient's contract and that she would need to find a new job. 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 She reports when she was discussing this with her last night, her advised that she begin looking for jobs in [place] with her parents live. Has been expressed that she would be moving to [place] without him. But these things greatly upset the patient which exacerbated her depression, anxiety and suicidal thoughts and she had Chivo been having. On exam, patient seems teary and anxious. She is appropriate and seems to have good insight. She is forward thinking and wants to seek help so that she is able to be safe and have a successful . Does not feel suicidal at this moment but is concerned about being by herself and the impulsivity that she may have. I will consult with mental health as well as Dr. Bradford. Plan to obtain laboratory evaluation. I did note that the patient's blood pressure is elevated, this may be induced anxiety but we will continue to monitor this. Patient was evaluated by Dr. Bradford. She evaluated the patient's abdomen, advised that the heart rate is 145. I did discuss with Dr. Bradford the elevated BP, she also feels this is stress induced. Patient evaluated by mental health. She advised that at this time patient is high risk and should be considered for admission. I discussed this with the patient who in agreement with hospitalization, anything I can do to get help. Mental [facility] sent admission request to [facility]. Awaiting to hear for possible bed placement. While awaiting placement, patient expressed boredom. She was offered books, coloring, music. Wishes to be moved from department or go home. At this time, we are still awaiting placement. She expressed wishes to leave. however, I am concerned that she is very high risk and should remain involuntarily if she has a change of heart secondary to her multitude of risk factors. I expressed by concern to the patient, expressed by concerns for her safety, and she agrees to stay voluntarily. At the end of my shift, still awaiting to hear from [facility] regarding bed availability. Care transitioned to Jonah Trevizo NP. <Yahir Trevizo NP - Last Filed: 03/22/18 23:33> Care of patient received from Vicenta MONTERO and patient is pending psychiatric admission preferably at [facility]. Patient reassessed and has no change in condition. Patient informed that no beds were available at [facility] at this time and that we are going to attempt to admit patient for comfort measures Informed by nursing cap and hat production supervisor that there is unfortunately a lack of patient setters on the inpatient unit so informed patient that she would have to stay in the emergency department that we would attempt to provide as many comfort kalli ures as possible. I did inform staff analyst that as long as patient is observed that she may have music therapy in the room at this time as I feel that this is appropriate given the circumstances of inability to admit patient and no television access. Patient ordered her normal nightly meds along with some Benadryl to aid with sleep and anxiety. Pending admission patient care was transferred to Dr. Aidan Clarissa pending bed placement. Patient has no new stated changing condition or complaints. HPI <WINSTON Granger - Last Filed: 03/23/18 08:00> General Mode of arrival: ambulatory . Date/Time Provider Initiated Documentation: 03/22/18 10:52 . Limitations to Documentation: no limitations . Information obtained by: patient and family (accompanied by friend/coworker) . History of Present Illness 37 year old F presents to the emergency department with the chief complaint of suicidal ideation, described as severe, Patient started experiencing this day(s) (5) and it has been intermittent. Other factors that worsen symptoms (home and work stressors) . Patient notes denies chest pain, cough, fever/chills, headaches, nausea/vomiting, rash, shortness of breath and syncope. Patient did receive the following treatments prior to arrival, none Related Data Home Medications Medication Instructions Recorded Confirmed omega-3 fatty acids-fish oil [Fish 1 tab PO HS 03/16/14 03/22/18 Oil] levothyroxine 100 mcg PO DAILY 30 Days #90 11/23/17 03/22/18 tab-cap aspirin [Lo-Dose Aspirin Ec] 81 mg PO DAILY tab-cap 12/06/17 03/22/18 cholecalciferol (vitamin D3) 800 unit PO DAILY 12/06/17 03/22/18 [Vitamin D3] vit,[id number] 1 tab-cap PO DAILY tab-cap 12/06/17 03/22/18 [Prenatabs Rx Tablet] Previous Rx's Medication Instructions Recorded levothyroxine 100 mcg PO DAILY 30 Days #90 11/23/17 tab-cap Allergies Allergy/AdvReac Type Severity Reaction Status Date / Time pollen extracts AdvReac Intermediate Unverified 03/22/18 10:55 cilantro Allergy Severe Numb Uncoded 03/22/18 10:55 mouth, hives cigarette smoke AdvReac Intermediate congestion Uncoded 03/22/18 10:55 dust AdvReac Intermediate congestion Uncoded 03/22/18 10:55 General Stated Complaint: PsychEval NATALI: 2 Review of Systems <WINSTON Granger - Last Filed: 03/23/18 08:00> Constitutional Reports as per HPI, Denies chills, Denies fatigue, Denies fever(s), Denies headache(s) and Denies weakness Eyes Denies change in vision ENT Denies headache(s) and Reports other (states she had tingling in her lips when worked up at school, this has since resolved) Cardiovascular Reports as per HPI, Denies chest pain, Denies lightheadedness, Denies dyspnea and Denies dyspnea on exertion Respiratory Denies dyspnea and Denies dyspnea on exertion Gastrointestinal Reports as per HPI, Denies abdominal pain, Denies change in bowel habits, Denies nausea and Denies vomiting Genitourinary Reports as per HPI, Denies abnormal vaginal bleeding, Denies flank pain and Reports other (patient is 20 weeks ) Musculoskeletal Denies abnormal gait Integumentary/Breasts Reports as per HPI and Denies rash Neurologic Denies abnormal gait, Denies headache(s) and Denies weakness Psychiatric Reports as per HPI, Reports anxiety, Reports depression, Denies hallucinations, Denies homicidal ideation and Reports suicidal ideation Endocrine Denies fatigue PFS <WINSTON Granger - Last Filed: 03/23/18 08:00> Antonio chen present (Acute) Hx of female infertility BMI 45.0-49.9, adult (Chronic) PCOS (polycystic ovarian syndrome) (Chronic) Hypothyroidism (acquired) (Chronic) Family History Mother Essential hypertension Trigeminal neuralgia of right side of face Lupus (systemic lupus erythematosus) Father Diabetes Essential hypertension Colonoscopy - IV Sedation (12/01/15) Family History Mother Essential hypertension Trigeminal neuralgia of right side of face Lupus (systemic lupus erythematosus) Father Diabetes Essential hypertension Medical History Antonio chen present (Acute) Hx of female infertility BMI 45.0-49.9, adult (Chronic) PCOS (polycystic ovarian syndrome) (Chronic) Hypothyroidism (acquired) (Chronic) Social History adopted: No foster care: No household members: spouse, children and other details: brea Vieira current occupational status: employed and other details: [employer]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 Smoking/Tobacco Use Status: Never alcohol intake: current alcohol intake frequency: a few times a month substance use type: does not use special josef needs: No agree to transfusion: Yes seatbelt use: always helmet use: Yes drive intox or ride w/ intox double bottom driver: No water heater temp set < 120 deg: Yes working smoke detector in home: Yes fire extinguisher in home: Yes carbon monox detector in home: Yes firearms in home: No do you feel safe at home: Yes victim of physical abuse: No victim of emotional abuse: No victim of sexual abuse: No Surgical History Colonoscopy - IV Sedation (12/01/15) Social History adopted: No foster care: No household members: spouse, children and other details: brea Vieira current occupational status: employed and other details: [employer]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 Smoking/Tobacco Use Status: Never alcohol intake: current alcohol intake frequency: a few times a month substance use type: does not use special josef needs: No agree to transfusion: Yes seatbelt use: always helmet use: Yes drive intox or ride w/ intox double bottom driver: No water heater temp set < 120 deg: Yes working smoke detector in home: Yes fire extinguisher in home: Yes carbon monox detector in home: Yes firearms in home: No do you feel safe at home: Yes victim of physical abuse: No victim of emotional abuse: No victim of sexual abuse: No History History 2 Para Hx # Term Pregnancies 0 Multiple births 0 Hx # Pregnancies Ectopic pregnancies AB induced 0 Hx Number of Living Children 0 AB spontaneous 1 Exam <WINSTON Granger - Last Filed: 03/23/18 08:00> Const General: cooperative, healthy appearing, comfortable, in distress (patient appears anxious and teary), well developed and well groomed Nutritional Appearance: well nourished and overweight Orientation: alert and awake HENMT Head: normal to inspection Ears: hearing grossly normal bilaterally Face and sinus: normal facial exam and sinuses nontender Mouth: moist mucous membranes Eyes General: appearance normal, both eyes and all related structures Resp Effort & Inspection: normal respiratory effort, able to speak in complete sentences and no respiratory distress Auscultation: clear to auscultation bilaterally, no rales, no rhonchi and no wheezes Cardio Rate: regular rate Rhythm: regular rhythm Heart Sounds: S1 normal and S2 normal Skin General skin exam: no rashes or lesions noted Trauma: no lacerations or abrasions Neuro General: alert and awake Cognition: normal cognition Speech: speech normal Gait: normal gait Psych Appearance: grossly normal and well kempt Mental Status: mental status grossly normal Speech and Movement: speech and movement normal Mood: anxious mood Affect: sad and anxious affect Attitude: cooperative Thought Process: normal Thought Content: suicidality Insight: insight good Judgment: judgment good Course <WINSTON Granger - Last Filed: 03/23/18 08:00> Vital Signs Temperature 36.8 C 03/22/18 10:52 Pulse 91 H 03/22/18 10:52 Respiratory Rate 16 03/22/18 10:52 Blood Pressure 149/117 H 03/22/18 10:52 Pulse Oximetry 96 03/22/18 10:52 Temperature 36.8 C 03/22/18 10:52 Temperature Source Skin 03/22/18 10:52 Pulse 91 H 03/22/18 10:52 Respiratory Rate 16 03/22/18 10:52 Respiratory Effort 03/22/18 10:56 Blood Pressure 149/117 H 03/22/18 10:52 Blood Pressure Position Sitting 03/22/18 10:52 Pulse Oximetry 96 03/22/18 10:52 Oxygen Delivery Method Room Air 03/22/18 10:52 Oxygen Flow Rate 0 03/22/18 10:52 Pain Level 0 03/22/18 10:52 Lab/Test Results Lab/Test Results: Laboratory Tests Range/Units 03/22/18 11:38 WBC (4.4-10.8) k/cumm 9.80 RBC (4.00-5.20) m/cumm 4.00 Hgb (12.0-15.5) g/dL 11.9 L Hct (36.0-46.0) % 34.8 L MCV (80-95) fL 87.0 MCH (27.0-33.0) pg 29.8 MCHC (32.0-36.0) g/dL 34.2 RDW (11.7-14.6) % 13.6 Plt Count (130-400) x1000/uL 218 MPV (8.0-11.0) fL 9.6 Immature Gran % 0.3 Neutrophils % 77.1 Lymphocytes % 14.8 Monocytes % 7.0 Eosinophils % 0.6 Basophils % 0.2 Absolute Neutrophils (1.2-6.7) k/cumm 7.55 H Absolute Lymphocytes (1.2-3.4) k/cumm 1.45 Absolute Monocytes (0.11-0.7) k/cumm 0.69 Absolute Eosinophils (0.0-0.7) k/cumm 0.06 Absolute Basophils (0.0-0.2) k/cumm 0.02 Sign Out <WINSTON Granger - Last Filed: 03/23/18 08:00> Sign Out Data: Sign Out Comment: Care signed out to Jonah Trevizo NP. Disposition made, awaiting bed placement Last updated by Vicenta Ledezma PA at 03/22/18 16:31 Sign Out Comment: Care of patient signed out to Dr. Aidan Romo pending psychiatric bed availability and acceptance. Last updated by Yahir Trevizo NP at 03/22/18 23:34 Post-Handoff Eval: patient sleeping, has been so during my shift. Plan to be in ED overnight and resume bed search in the AM. Patient will be signed out in AM pending this search Sign Out Comment: awaiting psychiatric bed placement, f/u with [facility] Last updated by Leandro Romo MD at 03/23/18 00:38
[2018-03-22 12:10] LABS: ALT 13 U/L (12-78); AST 11 U/L (15-37); Alkaline Phosphatase 51 U/L (46-116); Anion Gap 10.3 mmol/L (3-11); BUN 7 mg/dL (7-18); Bilirubin, Total 0.3 mg/dL (0.2-1.0); CO2 22.7 mmol/L (21.0-32.0); CREATININE 0.53 mg/dL (0.55-1.02); Chloride 104 mmol/L (98-107); Glucose 68 mg/dL (70-100); Potassium 3.8 mmol/L (3.5-5.1); Sodium 137 mmol/L (136-145); Total Protein 7.6 g/dL (6.4-8.2)
[2018-03-22 12:11] LABS: ETHANOL BLOOD < 3.0 mg/dL (<3)
[2018-03-22 12:13] LABS: Bilirubin Negative (Negative); Blood Negative (Negative); Clarity Sl Cloudy; Glucose Negative (Negative); Ketones Negative (Negative); Leukocyte Esterase Small (Negative); Nitrite Negative (Negative); Specific Gravity 1.015 (1.005-1.025); Urobilinogen 0.2 EU/dL (Up TO 0.2); pH 6.5 (5-8)
[2018-03-22 12:16] LABS: Acetaminophen < 2 ug/mL (10-30); Salicylate < 2.8 mg/dL (2.8-20.0)
[2018-03-22 12:20] LABS: Bacteria Few HPF (Negative); Crystals Negative HPF (Negative); Epithelial Cells Moderate HPF (Negative); Mucus Trace (Negative); RBC 0-2 (0-2)
[2018-03-22 12:21] LABS: C & S Indicated? No/Sq. Contamination; Casts Negative LPF (Negative)
[2018-03-22 12:27] LABS: *AMPHETAMINES SCREEN URINE Negative (Negative); *BARBITURATES SCREEN URINE Negative (Negative); *BENZODIAZEPINES SCREEN URINE Negative (Negative); Cannabinoids THC Negative (Negative); Cocaine Screen,Urine Negative (Negative); METHADONE URINE SCREEN Negative (Negative); OPIATES URINE SCREEN Negative (Negative); Tricyclic Antidepressants Negative (Negative)
--- NOTE | 2018-03-22 12:55 | PDOC.MHCN ---
Date of service: 03/22/18 Time of Service: 12:55 Mental Health Crisis Note Presenting Issue How did you arrive at the ED and why did you come: Patient initially arrived at the Emergency Department via private vehicle with a co-worker. Precipitating Factors Patient is denying current SI but states that she is fearful to be home alone. She states that she fears that she will do something impulsive as she has had strong suicidal thoughts with a plan for the past five days. The patient identified tying a rope around her neck and hanging it from the banister at home as her plan. The patient states that she is currently 20 weeks and states that around this time last year she had a miscarriage. This along with the impending termination of her employment, the patient is experiencing several life stressors. This patient would greatly benefit from in-patient mental health treatment. Disposition BEHAVIOR: No abnormal behavior to report EYE CONTACT: Patient makes appropriate eye contact MOOD: Sad and tearful AFFECT: Appropriate for conversation APPETITE: unknown SLEEP(trouble falling/staying asleep: unknown Plan Patient will remain at the hospital on a voluntary status in order to pursue inpatient mental health treatment. Referral sent to [facility]. Provisional Diagnosis Adjustment Disorder with Mixed Anxiety and Depressed Mood F43.23 Signature Clinician's Name/Title: Yadi Price [facility] Emergency Clinician
[2018-03-22 14:01] VITALS: BP 155/95
--- NOTE | 2018-03-22 14:02 | NUR.NOTE ---
patient calm and conversing with and mental health.
--- NOTE | 2018-03-22 14:10 | PDOC.ERCMPRO ---
- If Service Date Differs Date of service: 03/22/18 Time of Service: 14:10 Care Management Progress Note Enedelia is a 37 y/o female whom presents with suicidal ideation. She has a plan of hanging herself. Enedelia has multiple stressors at this time. 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 Her has also told her that he wants to leave her, and she has had a miscarriage before around 20 weeks. Enedelia is currently 20 weeks , Dr. Supa Cam met with her and examined this afternoon. Enedelia has good insight and is forward thinking, she does not typically receive counseling services in the community and just recently outreached to [facility], for Womens Wellness. Huddle Participants: WINSTON Yadav, Yadi, [facility], Dang, RN, RAND Sandoval,. Date and time: 03/22/18 @ 1345 Safety plan has been established with patient, and care team, to adhere to patient goals, identify restrictions based on behavioral status, address nutrition, and determine allowed personal belongings, tools for hygiene and personal care. Determine level of activity including ambulation, level of supervision, visitors, and determine privileges based on behaviors and level of engagement by pt. SAFETY PLAN: 1. Will remain on suicide precautions. Pt is in her own clothes as she is 20 weeks . Paper clothes are too small. 2. Will remain in room under direct supervision of one-on-one staff at all times provided by AJAY, PILOT SUBMERSIBLE straightening machine operator. 3. May have paper cups, plates, finger foods as well as a metal spoon with which to eat meals. [facility] staff will be responsible for accounting of utensils after meals. 4. Follow [facility] Management of the Admitted Behavioral Health Patient policy. 5. Comfort bath system only. 6. No personal belongings 7. Visitors to visit. [facility] school counselor to visit. 8. Activities may have crayons, paper, cards to play. TV and remote if available. 9. Bathroom privileges may go to the bathroom with staff escort. Placement: Referral has been sent to [facility]. Awaiting response. Patient is currently voluntarily at [facility] and seeking inpatient admission when a bed becomes available. [facility] Frontline Jewel Diameter Gauger will continue seeking placement. Please contact the Geodetic Surveyor Expert Medical Writer ([phone]) and [facility] Jewel Diameter Gauger ([phone]) for any needed changes in the Safety Plan. Safety plan has been provided to interdepartmental care team including Clinical Coordinator, Nursing Supervisor Warping Department.
--- NOTE | 2018-03-22 15:20 | NUR.NOTE ---
Nursing Note:patient relayed to women's wellness counselor that she wanted to go home. Vicenta MONTERO made aware and is in speaking with patient now.
--- NOTE | 2018-03-22 15:53 | NUR.NOTE ---
Nursing Note: patient attempting to nap.
--- NOTE | 2018-03-22 17:33 | NUR.NOTE ---
Nursing Note:patient tearful at times. frustrated with the time it is taking for answers on her disposition. menu given to patient so she can order supper. attentive and advocating for patient.
--- NOTE | 2018-03-22 20:10 | NUR.NOTE ---
Nursing Note: Pt is currently sitting up in bed talking w/female school resource officer. Requested and received ice water, CPSO in place, pleasant and cooperative at this time. Will CTM.
[2018-03-22] MEDS: diphenhydrAMINE 25 MG CAP 50 MG PO (22:28)
[2018-03-22] MEDS: Aspirin 81 MG CHEW PO (22:29)
[2018-03-22] MEDS: Prenatal Multivitamin w/CA,FE TAB 1 TAB PO (22:48)
[2018-03-22] MEDS: Omega-3 Fatty Acids 1000 MG CAP 2000 MG PO (22:48)
[2018-03-23] MEDS: Levothyroxine 100 MCG TAB PO (06:50)
--- NOTE | 2018-03-23 07:00 | NUR.NOTE ---
Nursing Note: patient awake, up to bathroom. ordering breakfast.
[2018-03-23 08:09] VITALS: RESP 16
--- NOTE | 2018-03-23 08:19 | NUR.NOTE ---
Nursing Note:patient's in to visit patient.
--- NOTE | 2018-03-23 09:27 | NUR.NOTE ---
Nursing Note:patient calm and conversing with .
--- NOTE | 2018-03-23 09:47 | NUR.NOTE ---
Nursing Note: mental health in with patient.
--- NOTE | 2018-03-23 10:07 | PDOC.MHCN ---
Date of service: 03/23/18 Time of Service: 10:07 Mental Health Crisis Note Presenting Issue How did you arrive at the ED and why did you come: Patient initially arrived yesterday with a co-worker due to the patient having thoughts of suicide for several days. Precipitating Factors Patient is denying current SI as she is stating that she just wants to go home and sleep. Patient is of a very high risk population as she is currently 20 weeks . Patient is anxious to leave the emergency department. Patient has experienced several recent life stressors including losing her job, the 1 one year anniversary of her miscarriage, and her expressing that he is going to leave and no longer finds her attractive. When discussing these stressors the topic of her seemed to be the one to exacerbate her thoughts of suicide the most. Therefore it is not safe for the patient to be released home to her until treatment has occurred. Disposition BEHAVIOR: No abnormal behavior to report EYE CONTACT: Patient makes direct and appropriate eye contact MOOD: Depressed and Anxious AFFECT: Tearful APPETITE: Good SLEEP(trouble falling/staying asleep: Unknown Plan Patient will remain at the hospital until a bed becomes available at a mental nadir treatment facility. Referral sent to [facility]. Signature Clinician's Name/Title: Yadi Aguilar - [facility] Emergency Clinician
--- NOTE | 2018-03-23 10:18 | PDOC.MHCN_ITS ---
Date of service: 03/23/18 Time of Service: 10:07 Mental Health Crisis Note Presenting Issue How did you arrive at the ED and why did you come: Patient initially arrived yesterday with a co-worker due to the patient having thoughts of suicide for several days. Precipitating Factors Patient is denying current SI as she is stating that she just wants to go home and sleep. Patient is of a very high risk population as she is currently 20 weeks . Patient is anxious to leave the emergency department. Patient has experienced several recent life stressors including losing her job, the 1 one year anniversary of her miscarriage, and her expressing that he is going to leave and no longer finds her attractive. When discussing these stressors the topic of her seemed to be the one to exacerbate her thoughts of suicide the most. Therefore it is not safe for the patient to be released home to her until treatment has occurred. Disposition BEHAVIOR: No abnormal behavior to report EYE CONTACT: Patient makes direct and appropriate eye contact MOOD: Depressed and Anxious AFFECT: Tearful APPETITE: Good SLEEP(trouble falling/staying asleep: Unknown Plan Patient will remain at the hospital until a bed becomes available at a mental nadir treatment facility. Referral sent to [facility]. Signature Clinician's Name/Title: Yadi Aguilar - [facility] Emergency Clinician
--- NOTE | 2018-03-23 11:56 | W.PM.HP.N ---
Date of service: 03/23/18 Time of Service: 11:56 Assessment and Plan (1) : Current visit: No Status: Acute (2) Alvarez cerclage present: Current visit: No Status: Acute (3) BMI 45.0-49.9, adult: Current visit: No Status: Chronic (4) Suicidal ideation: Current visit: Yes Status: Acute (5) Psychosocial distress: Current visit: Yes Status: Acute plan discharge to mental health facility in the near future. History of Present Illness Chief Complaint: Suicidal ideation, psychosocial stressors, IUP @ 20w EGA Narrative: Pt is a 37yo female admitted to the Obstetric Service at [facility] where the pt has been followed since early in her 1st trimester. At the time of a scheduled visit she reported being overwhelmed with work stress, and the impending anniversary of her 19week lost last year. She had a preliminary meeting with Urbano Booker LCSW and counseling appointments were arranged. 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 Over the weekend she began to experience suicidal ideation and went to work instead of being at home because of her concern that she would carry out her plan for suicide. In the ED she reported having thoughts of hanging herself and feeling hopeless. She was admitted to ED for suicide threat and has remained there x24hrs pending a disposition. [facility] reviewed her case and does not have any bed availability at this time. Pt denies that she is actively planning to harm herself but admits that her main desire for discharge from the ED is because of the conditions under which she is being supervised. I have agreeed to admit the pt to the OB service with the plan of transferring her to an inpt facility for further evaluation. She is stable obstetrically. Cervical cerclage in place with no evidence of cervical shortening or labor. FHR 140s. No contractions. Taking prophylactic ASA for AMA and maternal obesity. I had spoken to Dr. Bailey Sandhu regarding any possible medication management and the plan at this time is to provide counseling support. Benadryl for sleep will be offered on a prn basis. Review of Systems Constitutional Reports difficulty sleeping Genitourinary Reports vaginal discharge (non-malodrous - small amount) Musculoskeletal Reports system reviewed and no additional complaints, except as docu Psychiatric Reports hopelessness, Reports anhedonia and Reports suicidal ideation PFSH Antonio chen present (Acute) Hx of female infertility BMI 45.0-49.9, adult (Chronic) PCOS (polycystic ovarian syndrome) (Chronic) Hypothyroidism (acquired) (Chronic) Family History Mother Essential hypertension Trigeminal neuralgia of right side of face Lupus (systemic lupus erythematosus) Father Diabetes Essential hypertension Colonoscopy - IV Sedation (12/01/15) Family History Mother Essential hypertension Trigeminal neuralgia of right side of face Lupus (systemic lupus erythematosus) Father Diabetes Essential hypertension Medical History Antonio chen present (Acute) Hx of female infertility BMI 45.0-49.9, adult (Chronic) PCOS (polycystic ovarian syndrome) (Chronic) Hypothyroidism (acquired) (Chronic) Social History adopted: No foster care: No household members: spouse, children and other details: brea Vieira current occupational status: employed and other details: [employer] 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 Smoking/Tobacco Use Status: Never alcohol intake: current alcohol intake frequency: a few times a month substance use type: does not use special josef needs: No agree to transfusion: Yes seatbelt use: always helmet use: Yes drive intox or ride w/ intox star route mail driver: No water heater temp set < 120 deg: Yes working smoke detector in home: Yes fire extinguisher in home: Yes carbon monox detector in home: Yes firearms in home: No do you feel safe at home: Yes victim of physical abuse: No victim of emotional abuse: No victim of sexual abuse: No Surgical History Colonoscopy - IV Sedation (12/01/15) Social History adopted: No foster care: No household members: spouse, children and other details: brea Vieira current occupational status: employed and other details: [employer] 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 Smoking/Tobacco Use Status: Never alcohol intake: current alcohol intake frequency: a few times a month substance use type: does not use special josef needs: No agree to transfusion: Yes seatbelt use: always helmet use: Yes drive intox or ride w/ intox star route mail driver: No water heater temp set < 120 deg: Yes working smoke detector in home: Yes fire extinguisher in home: Yes carbon monox detector in home: Yes firearms in home: No do you feel safe at home: Yes victim of physical abuse: No victim of emotional abuse: No victim of sexual abuse: No History History 2 Para Hx # Term Pregnancies 0 Multiple births 0 Hx # Pregnancies Ectopic pregnancies AB induced 0 Hx Number of Living Children 0 AB spontaneous 1 Meds Home Medications Medication Instructions Recorded Confirmed Type omega-3 fatty acids-fish oil [Fish 1 tab PO HS 03/16/14 03/22/18 History Oil] levothyroxine 100 mcg PO DAILY 30 Days #90 11/23/17 03/22/18 Rx tab-cap aspirin [Lo-Dose Aspirin Ec] 81 mg PO DAILY tab-cap 12/06/17 03/22/18 History cholecalciferol (vitamin D3) 800 unit PO DAILY 12/06/17 03/22/18 History [Vitamin D3] vit,[id number] 1 tab-cap PO DAILY tab-cap 12/06/17 03/22/18 History [Prenatabs Rx Tablet] Allergies Allergy/AdvReac Type Severity Reaction Status Date / Time pollen extracts AdvReac Intermediate Unverified 03/22/18 10:55 cilantro Allergy Severe Numb Uncoded 03/22/18 10:55 mouth, hives cigarette smoke AdvReac Intermediate congestion Uncoded 03/22/18 10:55 dust AdvReac Intermediate congestion Uncoded 03/22/18 10:55 Exam Const General: cooperative and in distress Nutritional Appearance: obese Orientation: alert, awake, oriented x3 and other (tearful.) Chest Chest: normal inspection of the chest Resp Effort & Inspection: normal respiratory effort General: deferred Other: abd gravid. FHR midline above the pubic symphysis: 145s a Skin General skin exam: no rashes or lesions noted Results Labs : 03/22/18 11:38 03/22/18 11:38 Laboratory Results - last 24 hr 03/22/18 03/22/18 03/22/18 11:20 11:20 11:38 Sodium 137 Potassium 3.8 Chloride 104 Carbon Dioxide 22.7 Anion Gap 10.3 BUN 7 Creatinine 0.53 L Estimated GFR/1.73 m2 >= 60.00 Glucose 68 L Calcium 9.0 Total Bilirubin 0.3 AST 11 L ALT 13 Alkaline Phosphatase 51 Total Protein 7.6 Albumin 3.0 L TSH 2.00 Urine Color Yellow Urine Clarity Sl cloudy Urine pH 6.5 Ur Specific Talpa 1.015 Urine Protein Negative Urine Ketones Negative Urine Blood Negative Urine Nitrite Negative Urine Bilirubin Negative Urine Urobilinogen 0.2 Ur Leukocyte Esterase Small H Urine RBC 0-2 Urine WBC 5-10 Ur Epithelial Cells Moderate Urine Crystals Negative Urine Bacteria Few Urine Casts Negative Urine Mucus Trace Ur Culture Indicated? No/sq. contamination Urine Glucose Negative Salicylates Urine Opiates Screen Negative Urine Methadone Screen Negative Acetaminophen Ur Barbiturates Screen Negative Ur Tricyclics Screen Negative Ur Amphetamines Screen Negative U Benzodiazepines Scrn Negative Urine Cocaine Screen Negative Ur THC Screen Negative Ethyl Alcohol < 3.0 03/22/18 11:38 Sodium Potassium Chloride Carbon Dioxide Anion Gap BUN Creatinine Estimated GFR/1.73 m2 Glucose Calcium Total Bilirubin AST ALT Alkaline Phosphatase Total Protein Albumin TSH Urine Color Urine Clarity Urine pH Ur Specific Talpa Urine Protein Urine Ketones Urine Blood Urine Nitrite Urine Bilirubin Urine Urobilinogen Ur Leukocyte Esterase Urine RBC Urine WBC Ur Epithelial Cells Urine Crystals Urine Bacteria Urine Casts Urine Mucus Ur Culture Indicated? Urine Glucose Salicylates < 2.8 L Urine Opiates Screen Urine Methadone Screen Acetaminophen < 2 L Ur Barbiturates Screen Ur Tricyclics Screen Ur Amphetamines Screen U Benzodiazepines Scrn Urine Cocaine Screen Ur THC Screen Ethyl Alcohol Last Vital Signs Temp 98.2 F 03/22/18 10:52 Pulse 91 H 03/22/18 10:52 Resp 16 03/23/18 08:09 BP 155/95 H 03/22/18 14:01 Pulse Ox 96 03/22/18 10:52
[2018-03-23 12:15] VITALS: BP 155/95
--- NOTE | 2018-03-23 12:41 | PDOC.CMPRO ---
Care Management Progress Note Enedelia presents with ongoing SI/HI (due to being at this time). She is agreeable to placement and would prefer to go to [facility]. She will meet with JURGEN Germain and Dr. Bey while inpatient awaiting placement. 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 Interdisciplinary Team: Yadi, HAYLEE, Gayle, HAYLEE, Dr. Bey, Concha; RNNUBIA, Poli, RAND,. Date and time: 03/23/18 @ 1244 Safety plan has been established with patient, and care team, to adhere to patient goals, identify restrictions based on behavioral status, address nutrition, and determine allowed personal belongings, tools for hygiene and personal care. Determine level of activity including ambulation, level of supervision, visitors, and determine privileges based on behaviors and level of engagement by pt. SAFETY PLAN: 1. Will remain on suicide precautions. Pt is in her own clothes as she is 20 weeks . Paper clothes are too small. 2. Will remain in room under direct supervision of one-on-one staff at all times provided by AJAY, RN PERINATAL rubber stamp die inspector. 3. May have paper cups, plates, finger foods as well as a metal spoon with which to eat meals. [facility] staff will be responsible for accounting of utensils after meals. 4. Follow [facility] Management of the Admitted Behavioral Health Patient policy. 5. May have use of shower room with staff escort. 6. No personal belongings. 7. Visitors limited to and [facility] school counselor at this time. 8. Activities: may have crayons, paper, cards to play. Use of television and remote permitted. Placement: Referrals have been sent, awaiting response per Yadi. Patient is currently voluntarily at [facility] and seeking inpatient admission when a bed becomes available. [facility] Frontline Cotton Seed Culler will continue seeking placement. Please contact the Automation Driver Refueler ([phone]) and [facility] Cotton Seed Culler ([phone]) for any needed changes in the Safety Plan. Safety plan has been provided to interdepartmental care team including Clinical Coordinator, Nursing Logistics Lead.
[2018-03-23 13:30] VITALS: BP 133/81; PULSE 91; RESP 18; TEMP 36.6; O2SAT 98
[2018-03-23 13:40] VITALS: BP 133/81; PULSE 91; RESP 18; TEMP 36.6; O2SAT 98
--- NOTE | 2018-03-23 14:15 | CMPROGNOTE_ITS ---
Care Management Progress Note Enedelia presents with ongoing SI/HI (due to being at this time). She is agreeable to placement and would prefer to go to [facility]. She will meet with JURGEN Germain and Dr. Bey while inpatient awaiting placement. 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 Interdisciplinary Team: Yadi, HAYLEE, Gayle, HAYLEE, Dr. Bey, Concha; RNNUBIA, Poli, RAND,. Date and time: 03/23/18 @ 1243 Safety plan has been established with patient, and care team, to adhere to patient goals, identify restrictions based on behavioral status, address nutrition, and determine allowed personal belongings, tools for hygiene and personal care. Determine level of activity including ambulation, level of supervision, visitors, and determine privileges based on behaviors and level of engagement by pt. SAFETY PLAN: 1. Will remain on suicide precautions. Pt is in her own clothes as she is 20 weeks . Paper clothes are too small. 2. Will remain in room under direct supervision of one-on-one staff at all times provided by AJAY, REAL ESTATE ASSISTANT wire winding machine operator. 3. May have paper cups, plates, finger foods as well as a metal spoon with which to eat meals. [facility] staff will be responsible for accounting of utensils after meals. 4. Follow [facility] Management of the Admitted Behavioral Health Patient policy. 5. May have use of shower room with staff escort. 6. No personal belongings. 7. Visitors limited to and [facility] school counselor at this time. 8. Activities: may have crayons, paper, cards to play. Use of television and remote permitted. Placement: Referrals have been sent, awaiting response per Yadi. Patient is currently voluntarily at [facility] and seeking inpatient admission when a bed becomes available. [facility] Frontline Labor Contract Analyst will continue seeking placement. Please contact the Unified Communications Architect Chemical Plant Operator Supervisor ([phone]) and [facility] Labor Contract Analyst ([phone]) for any needed changes in the Safety Plan. Safety plan has been provided to interdepartmental care team including Clinical Coordinator, Nursing Telephone Diaphragm Assembler.
--- NOTE | 2018-03-23 15:05 | CHAPLAIN ---
After spending more than 24 hours in the ER, according to Enedelia, she was admitted to med/surg and I met her there while BRITTON Beebe was talking with Enedelia. Enedelia's concern was that she was told coming to the ER would be the quickest way to get to see a counselor and she has not yet seen one except for a short, five minute evaluation in the ER. She also said she has not been allowed to make decisions. Concepción did a good job of explain that the plan in place now is to transfer her to [facility], where she will likely receive valuable help. Enedelia said the last time she felt this way was when her son . She had a miscarriage at 20 weeks, (The anniversary of that is soon.) and she worked through that myself. She is tearful. She states she just wants to go home. She would like to take a shower. I let Care Management know that. According to Care Management, Enedelia was also offered the support of Sabine Booker, the behavioral health specialist in [facility].
[2018-03-23 15:53] VITALS: BP 127/76; PULSE 93; RESP 18; TEMP 36.9; O2SAT 97
--- NOTE | 2018-03-23 17:07 | W.PM.DS.N ---
DS: Diagnosis Discharge Diagnosis (1) : Status: Acute (2) Alvarez cerclage present: Status: Acute (3) BMI 45.0-49.9, adult: Status: Chronic (4) Suicidal ideation: Status: Acute (5) Psychosocial distress: Status: Acute Discharge Plan Disposition Patient Disposition: [facility] Condition: Fair Discharge Details Reason For Visit: IUP SECOND TRIMESTER,SUICIDAL IDEATION,PSYCHOSOCIA Admit Date/Time: 03/23/18 12:12 Admit Provider: Anya Bradford Attending Provider: Anya Bradford Primary Care Provider: [facility] Hospital Course: Patient presented to the [facility] emergency department on 03/22/2018 emotional distressed with suicidal ideation and a plan in place. She was evaluated by mental health counselor and admitted for observation pending a disposition and inpatient psych unit. She was accepted in transfer at the [facility]. Full report was provided to the accepting provider Dr. Lynn regarding the patient's history and current obstetrical status. Patient agrees to the transfer. Home Meds and New Rx's Prescriptions: Continued levothyroxine 100 MCG tablet 100 mcg PO DAILY 30 Days Qty: 90 RF: 3 aspirin [Lo-Dose Aspirin] 81 MG tablet,delayed release (DR/EC) 81 mg PO DAILY RF: 0 vit,[id number] [Prenatabs Rx] 1 EACH tablet 1 tab-cap PO DAILY RF: 0 cholecalciferol (vitamin D3) [Vitamin D3] 400 UNIT tablet 800 unit PO DAILY RF: 0 omega-3 fatty acids-fish oil [Fish Oil] 1 EACH capsule 1 tab PO HS RF: 0 Discharge Instructions Additional Instructions: The providers at [facility] and patient were given contact information for Dr. Bradford in the event of questions or concerns Dr. Bradford cell phone number: [phone], Dr. Armas Beeper [phone]-. Plan at this time is to have the patient follow-up routine care when she is discharged. Currently no labs or tests are pending she was to have a ultrasound of the cervical length which may be best postponed. Care Plan Goals: N/A Referrals: Anya Bradford MD [ [facility] STAFF PHYSICIAN] - Activity:: Activity as Tolerated Diet:: As Tolerated DS: Summary Time spent discussing smoking cessation with patient: more than 10 minutes Status at Discharge Cognitive/behavioral status at discharge: Patient more comfortable after leaving emergency department. She is resigned to transfer to [facility]. Functional status at discharge: independent ambulation Time Spent with Patient Less than 30 minutes Specific discharge activities: Coordination of care with accepting physicians assistant spa manager at [facility]. Verbal report regarding patient's obstetric status, my contact information and obstetric plan for the future. Quality: AMI Clinical Trial Participant: No Exam Const General: cooperative and no acute distress Nutritional Appearance: obese Orientation: alert, awake and oriented x3 Resp Effort & Inspection: normal respiratory effort GI Inspection: normal to inspection General: deferred Skin General skin exam: no rashes or lesions noted Psych Appearance: grossly normal Mental Status: mental status grossly normal Speech and Movement: speech and movement normal Mood: congruent mood Affect: normal affect Attitude: cooperative Thought Process: normal Thought Content: normal Insight: insight good Judgment: judgment good DS: Data Vitals/I&O Vitals and I&O: Vital Signs Temperature 98.4 F 03/23/18 15:53 Temperature Source Tympanic 03/23/18 15:53 Pulse 93 H 03/23/18 15:53 Pulse Rhythm Regular 03/23/18 15:42 Respiratory Rate 18 03/23/18 15:53 Respiratory Effort Non-Labored 03/23/18 15:42 Respiratory Depth Normal 03/23/18 15:42 Respiratory Pattern Normal 03/23/18 15:42 Blood Pressure 127/76 03/23/18 15:53 Blood Pressure Position Sitting 03/22/18 10:52 Pulse Oximetry 97 03/23/18 15:53 Oxygen Delivery Method Room Air 03/23/18 15:53 Oxygen Flow Rate 0 03/23/18 15:53 Pain Level 0 03/23/18 12:15 Intake & Output 03/22/18 03/23/18 03/23/18 23:59 11:59 23:59 Weight 295 lb 0.009 oz Other: Comment reports voiding w/o difficulty PFSH Alvarez cerclage present (Acute) Hx of female infertility BMI 45.0-49.9, adult (Chronic) PCOS (polycystic ovarian syndrome) (Chronic) Hypothyroidism (acquired) (Chronic) Family History Mother Essential hypertension Trigeminal neuralgia of right side of face Lupus (systemic lupus erythematosus) Father Diabetes Essential hypertension Colonoscopy - IV Sedation (12/01/15) Family History Mother Essential hypertension Trigeminal neuralgia of right side of face Lupus (systemic lupus erythematosus) Father Diabetes Essential hypertension Social History adopted: No foster care: No household members: spouse, children and other details: Dariel, brea current occupational status: employed and other details: [employer] 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 Smoking/Tobacco Use Status: Never alcohol intake: current alcohol intake frequency: a few times a month substance use type: does not use special josef needs: No agree to transfusion: Yes seatbelt use: always helmet use: Yes drive intox or ride w/ intox interstate bus driver: No water heater temp set < 120 deg: Yes working smoke detector in home: Yes fire extinguisher in home: Yes carbon monox detector in home: Yes firearms in home: No do you feel safe at home: Yes victim of physical abuse: No victim of emotional abuse: No victim of sexual abuse: No History History 2 Para Hx # Term Pregnancies 0 Multiple births 0 Hx # Pregnancies Ectopic pregnancies AB induced 0 Hx Number of Living Children 0 AB spontaneous 1
--- NOTE | 2018-03-23 17:15 | DSE_ITS ---
DS: Diagnosis Discharge Diagnosis (1) : Status: Acute (2) Alvarez cerclage present: Status: Acute (3) BMI 45.0-49.9, adult: Status: Chronic (4) Suicidal ideation: Status: Acute (5) Psychosocial distress: Status: Acute Discharge Plan Disposition Patient Disposition: [facility] Condition: Fair Discharge Details Reason For Visit: IUP SECOND TRIMESTER,SUICIDAL IDEATION,PSYCHOSOCIA Admit Date/Time: 03/23/18 12:12 Admit Provider: Anya Bradford Attending Provider: Anya Bradford Primary Care Provider: [facility] Course Hospital Course: Patient presented to the [facility] emergency department on 03/22/2018 emotional distressed with suicidal ideation and a plan in place. She was evaluated by mental health counselor and admitted for observation pending a disposition and inpatient psych unit. She was accepted in transfer at the [facility]. Full report was provided to the accepting provider Dr. Lynn regarding the patient's history and current obstetrical status. Patient agrees to the transfer. Home Meds and New Rx's Prescriptions: Continued levothyroxine 100 MCG tablet 100 mcg PO DAILY 30 Days Qty: 90 RF: 3 aspirin [Lo-Dose Aspirin] 81 MG tablet,delayed release (DR/EC) 81 mg PO DAILY RF: 0 [id number] [Prenatabs Rx] 1 EACH tablet 1 tab-cap PO DAILY RF: 0 cholecalciferol (vitamin D3) [Vitamin D3] 400 UNIT tablet 800 unit PO DAILY RF: 0 omega-3 fatty acids-fish oil [Fish Oil] 1 EACH capsule 1 tab PO HS RF: 0 Discharge Instructions Additional Instructions: The providers at [facility] and patient were given contact information for Dr. Bradford in the event of questions or concerns Dr. Bradford cell phone number: [phone], Dr. Armas Beeper [phone]-. Plan at this time is to have the patient follow-up routine care when she is discharged. Currently no labs or tests are pending she was to have a ultrasound of the cervical length which may be best postponed. Care Plan Goals: N/A Referrals: Anya Bradford MD [ [facility] STAFF PHYSICIAN] - Activity:: Activity as Tolerated Diet:: As Tolerated DS: Summary Time spent discussing smoking cessation with patient: more than 10 minutes Status at Discharge Cognitive/behavioral status at discharge: Patient more comfortable after leaving emergency department. She is resigned to transfer to [facility]. Functional status at discharge: independent ambulation Time Spent with Patient Less than 30 minutes Specific discharge activities: Coordination of care with accepting physicians legal assistant at [facility]. Verbal report regarding patient's obstetric status, my contact information and obstetric plan for the future. Quality: AMI Clinical Trial Participant: No Exam Const General: cooperative and no acute distress Nutritional Appearance: obese Orientation: alert, awake and oriented x3 Resp Effort & Inspection: normal respiratory effort GI Inspection: normal to inspection General: deferred Skin General skin exam: no rashes or lesions noted Psych Appearance: grossly normal Mental Status: mental status grossly normal Speech and Movement: speech and movement normal Mood: congruent mood Affect: normal affect Attitude: cooperative Thought Process: normal Thought Content: normal Insight: insight good Judgment: judgment good DS: Data Vitals/I&O Vitals and I&O: Vital Signs Temperature 98.4 F 03/23/18 15:53 Temperature Source Tympanic 03/23/18 15:53 Pulse 93 H 03/23/18 15:53 Pulse Rhythm Regular 03/23/18 15:42 Respiratory Rate 18 03/23/18 15:53 Respiratory Effort Non-Labored 03/23/18 15:42 Respiratory Depth Normal 03/23/18 15:42 Respiratory Pattern Normal 03/23/18 15:42 Blood Pressure 127/76 03/23/18 15:53 Blood Pressure Position Sitting 03/22/18 10:52 Pulse Oximetry 97 03/23/18 15:53 Oxygen Delivery Method Room Air 03/23/18 15:53 Oxygen Flow Rate 0 03/23/18 15:53 Pain Level 0 03/23/18 12:15 Intake & Output 03/22/18 03/23/18 03/23/18 23:59 11:59 23:59 Weight 295 lb 0.009 oz Other: Comment reports voiding w/o difficulty PFSH Alvarez cerclage present (Acute) Hx of female infertility BMI 45.0-49.9, adult (Chronic) PCOS (polycystic ovarian syndrome) (Chronic) Hypothyroidism (acquired) (Chronic) Family History Mother Essential hypertension Trigeminal neuralgia of right side of face Lupus (systemic lupus erythematosus) Father Diabetes Essential hypertension Colonoscopy - IV Sedation (12/01/15) Family History Mother Essential hypertension Trigeminal neuralgia of right side of face Lupus (systemic lupus erythematosus) Father Diabetes Essential hypertension Social History adopted: No foster care: No household members: spouse, children and other details: Dariel, brea current occupational status: employed and other details: [employer] 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 Smoking/Tobacco Use Status: Never alcohol intake: current alcohol intake frequency: a few times a month substance use type: does not use special josef needs: No agree to transfusion: Yes seatbelt use: always helmet use: Yes drive intox or ride w/ intox road oiling truck driver: No water heater temp set < 120 deg: Yes working smoke detector in home: Yes fire extinguisher in home: Yes carbon monox detector in home: Yes firearms in home: No do you feel safe at home: Yes victim of physical abuse: No victim of emotional abuse: No victim of sexual abuse: No History History 2 Para Hx # Term Pregnancies 0 Multiple births 0 Hx # Pregnancies Ectopic pregnancies AB induced 0 Hx Number of Living Children 0 AB spontaneous 1
== END 2018-03-23 19:22 | disposition short-term general hospital (02) | DRG 880 ==
LOC: ER 03-23 07:46 → MS 03-23 12:23 → ER 03-24 17:00 → MS 03-24 17:01
PROVIDERS: Admitting Provider Obstetrics & Gynecology Gynecology; Emergency Provider Physician Assistant; PCP Nurse Practitioner Family; Visit Provider Obstetrics & Gynecology Gynecology
DX: R45.851 Suicidal ideations (principal); Z68.42 Body mass index [BMI] 45.0-49.9, adult; O34.30 Maternal care for cervical incompetence, unspecified trimester; Z65.8 Other specified problems related to psychosocial circumstances; O09.522 Supervision of elderly multigravida, second trimester; O09.292 Supervision of pregnancy with other poor reproductive or obstetric history, second trimester; Z3A.20 20 weeks gestation of pregnancy; Z75.1 Person awaiting admission to adequate facility elsewhere
CPT/HCPCS: 36415; 80053; 80307; 99222; 99239; 99285; 80320; 80329; 81003; 81015; 84443; 85025; 99284; J3490

== ENCOUNTER 2018-03-29 00:46 | Outpatient (CLI) | payer BC, SELFPAY ==
--- NOTE | 2018-03-29 08:23 | DI.US_ITS ---
SYMPTOMS/DIAGNOSIS: REPEAT EXAM OF CERVICAL LENGTH WITH CERCLAGE, O34.32, O09.299 OB ULTRASOUND: Many abnormalities cannot be diagnosed. A normal exam does not exclude a congenital anomaly. Radiology No. [id number] LMP: Exam Date: 03/29/18 [facility] wks days on EDC ([facility]) Confirmed: HISTORY: PREDICTED GESTATIONAL AGE NUMBER weeks with a range of week to weeks. 1 Determined by___1STUS___LMP___HISTORY PLACENTA PRESENTATION Grade Cephalic_X__ Anterior___Posterior_X__ Breech____ Right Left Transverse(head right___ Fundal___Low-lying___Previa___ Transverse(head left___ Varying BIOMETRY AMNIOTIC FLUID BPD: mm weeks Normal HC: mm weeks Oligo Polyhydramnios AC: mm weeks FL: mm weeks AMNIOTIC FLUID INDEX >26 WK CRL: mm weeks Cisterna Magna: mm CI: RUQ: LUQ Cerebellum: cm EFW: grams Percentile RLQ: LLQ Total: cms Composite AGE= wks EDC by US BIOPHYSICAL PROFILE ANATOMY IDENTIFIED SCORE 0/2 Heart: 4-Chamber___Rate:BPM 144 LVOT: RVOT: Amniotic Fluid(>2cms)____ Stomach: Kidneys: Respirations (>30 secs) Bladder: Post. Fossa: Body Flex/Extension 3 vessel cord: Ventricles: cord insertion: Lips:____ Extremity Flex/Extension spinal morphology: Nose: Total Score= Palate: NS=not seen COMMENTS: An OB ultrasound was carried out. The purpose of the study was to assess the cervical length. The cervical length is approximately 4.7 cm. There is a posterior placenta. A cardiac rate of 144 beats per minute was recorded in this cephalic price.
== END 2018-03-29 01:06 ==
PROVIDERS: PCP Nurse Practitioner Family; Visit Provider Obstetrics & Gynecology Gynecology
DX: O34.32 Maternal care for cervical incompetence, second trimester (principal); O09.299 Supervision of pregnancy with other poor reproductive or obstetric history, unspecified trimester; Z36.2 Encounter for other antenatal screening follow-up
CPT/HCPCS: 76815

== ENCOUNTER 2018-05-08 00:36 | Outpatient (CLI) | payer BC, SELFPAY ==
--- NOTE | 2018-05-08 07:53 | DI.US_ITS ---
SYMPTOM/DIAGNOSIS: ELEVATED BMI, NEED TO F/U GROWTH, Z34.90 OB ULTRASOUND: The fetus is in cephalic position. The placenta is posterior. The biometric measurements correspond to 29 weeks 1 day. The estimated weight is 1306 grams corresponding to the 87th percentile. The amniotic fluid amount appears normal at 14.1 Many abnormalities cannot be diagnosed. A normal exam does not exclude a congenital anomaly. Radiology No. [id number] LMP: Exam Date: 05/08/18 [facility] wks days on EDC ([facility]) 08/03/18 Confirmed: HISTORY: TK/WEIGHT PREDICTED GESTATIONAL AGE NUMBER 27 +4 weeks with a range of 26 +4 week to 28 +4 weeks. 1 Determined by___1STUS___LMP___HISTORY Info. pertaining to fetus # PLACENTA PRESENTATION Grade I Cephalic_XX__ Anterior___Posterior___XX Breech____ Right__XX___ Left Transverse(head right___ Fundal___Low-lying___Previa___ Transverse(head left___ Varying BIOMETRY AMNIOTIC FLUID BPD: 72 mm 29 weeks Normal HC: 272 mm 29 +5 weeks AC: 248 mm 29 weeks FL: 54 mm 28 +4 weeks AMNIOTIC FLUID INDEX >26 WK CRL: mm weeks Cisterna Magna: mm CI: 78.6 RUQ:_2.87 LUQ___4.15 Cerebellum: cm EFW: 1306 grams 87% Percentile RLQ:_1.86 LLQ___5.26____ Total:_ 14.1__cms Composite AGE= 29 +1 wks EDC by US___07/23/2018 BIOPHYSICAL PROFILE ANATOMY IDENTIFIED SCORE 0/2 Heart: 4-Chamber_XX__Rate:BPM__130 BPM___ LVOT: RVOT: Amniotic Fluid(>2cms)____ Stomach: Kidneys: Respirations (>30 secs) Bladder:____XX____ Post. Fossa: Body Flex/Extension 3 vessel cord: Ventricles: cord insertion: Lips:____ Extremity Flex/Extension spinal morphology: Nose: Total Score= Palate: NS=not seen
== END 2018-05-08 00:56 ==
PROVIDERS: PCP Nurse Practitioner Family; Visit Provider Obstetrics & Gynecology Gynecology
DX: Z34.93 Encounter for supervision of normal pregnancy, unspecified, third trimester (principal); O99.213 Obesity complicating pregnancy, third trimester
CPT/HCPCS: 76816

== ENCOUNTER 2018-05-08 07:56 | Outpatient (CLI) | payer BC, SELFPAY ==
[2018-05-08 10:50] LABS: HCT 34.2 % (36.0-46.0); HGB 11.3 g/dL (12.0-15.5); Mean Corpuscular Hemoglobin 29.2 pg (27.0-33.0); Mean Corpuscular Volume 88.4 fL (80-95); Platelet Count 211 x1000/uL (130-400); RBC 3.87 m/cumm (4.00-5.20); RBC Distribution Width 14.4 % (11.7-14.6); White Blood Cell Count 9.45 k/cumm (4.4-10.8)
[2018-05-08 11:00] LABS: Glucose,1 Hr (Glucola) 132 mg/dL (80-140)
== END 2018-05-08 08:16 ==
PROVIDERS: PCP Nurse Practitioner Family; Visit Provider Obstetrics & Gynecology Gynecology
DX: Z34.93 Encounter for supervision of normal pregnancy, unspecified, third trimester (principal)
CPT/HCPCS: 36415; 82950; 85027

== ENCOUNTER 2018-06-05 00:31 | Outpatient (CLI) | payer BC, SELFPAY ==
--- NOTE | 2018-06-05 11:04 | DI.US_ITS ---
SYMPTOMS/DIAGNOSIS: WEIGHT AND POSITION OB ULTRASOUND: Many abnormalities cannot be diagnosed. A normal exam does not exclude a congenital anomaly. Radiology No. [id number] LMP: Exam Date: 06/05/[address] [facility] wks days on EDC ([facility]) 08/03/18 Confirmed: HISTORY: PREDICTED GESTATIONAL AGE NUMBER 32+2 weeks with a range of 31+2 weeks to 33+2 weeks. 1 Determined by_X__1ST US___LMP___HISTORY PLACENTA PRESENTATION Grade I Cephalic___ Anterior___Posterior_X__ Breech__X__ Right Left Transverse(head right___ Fundal___Low-lying___Previa___ Transverse(head left___ Varying BIOMETRY AMNIOTIC FLUID BPD: 81 mm 32+3 weeks Normal HC: 307 mm 34+1 weeks AC: 304 mm 34+2 weeks FL: 64 mm 33 weeks AMNIOTIC FLUID INDEX >26 WK CRL: mm weeks Cisterna Magna: mm CI: 0.70 RUQ: 4.72 LUQ: 5.40 Cerebellum: cm EFW: 2269 grams Percentile: 96th RLQ: 3.00 LLQ: 0 Total: 13.1 cm Composite AGE= 33+3 wks EDC by US: 07/21/18 BIOPHYSICAL PROFILE ANATOMY IDENTIFIED SCORE 0/2 Heart: 4-Chamber_X__Rate:BPM 145 LVOT: RVOT: Amniotic Fluid(>2cms)____ Stomach:___X____ Kidneys: Respirations (>30 secs) Bladder:___X Post. Fossa: Body Flex/Extension 3 vessel cord: Ventricles: cord insertion: Lips:____ Extremity Flex/Extension spinal morphology: Nose: Total Score= Palate: NS=not seen COMMENTS: Comparison is made with April,. The fetus is in breech position. Placenta is posterior. The biometric measurements correspond to 33 weeks 3 days, which is at the upper range of normal. The estimated weight is 2269 g, corresponding to the 96th percentile. The amniotic fluid index appears normal at 13.1. The cervix appears intact with a length of 4.4 cm. No abnormalities are identified. IMPRESSION: size and weight are at the upper range of normal.
== END 2018-06-05 00:51 ==
PROVIDERS: PCP Nurse Practitioner Family; Visit Provider Obstetrics & Gynecology Gynecology
DX: Z34.93 Encounter for supervision of normal pregnancy, unspecified, third trimester (principal); O32.1XX1 Maternal care for breech presentation, fetus 1
CPT/HCPCS: 76816

== ENCOUNTER 2018-07-07 13:35 | Outpatient (REF) | payer BC, SELFPAY | END 2018-07-07 13:55 | LOC: LBN 13:35 | PROVIDERS: PCP Nurse Practitioner Family; Visit Provider Obstetrics & Gynecology | DX: Z34.90 Encounter for supervision of normal pregnancy, unspecified, unspecified trimester (principal) | CPT/HCPCS: 87081 ==

== ENCOUNTER 2018-07-21 00:47 | Outpatient (CLI) | payer BC, SELFPAY ==
--- NOTE | 2018-07-21 11:27 | DI.US_ITS ---
SYMPTOMS/DIAGNOSIS: EFW LIMITED OB ULTRASOUND: Limited third trimester protocol ultrasound was performed. The TK is 13 and there is visually a normal quantity of amniotic fluid. The biometry is consistent with term gestation with estimated weight 4487 grams. Fetus is in cephalic presentation. cardiac activity observed at a rate of 135 bpm. Many abnormalities cannot be diagnosed. A normal exam does not exclude a congenital anomaly. Radiology No. [id number] LMP: Exam Date: 07/21/18 [facility] wks days on EDC ([facility]) 08/03/18 Confirmed: HISTORY: F/U EFW/TK PREDICTED GESTATIONAL AGE NUMBER 38+1 weeks with a range of 37+1 weeks to 39+1 weeks. 1 Determined by 1STUS X LMP___HISTORY Info. pertaining to fetus # PLACENTA PRESENTATION Grade II Cephalic X Anterior___Posterior X Breech____ Right Left Transverse(head right___ Fundal___Low-lying___Previa___ Transverse(head left___ Varying BIOMETRY AMNIOTIC FLUID BPD: 100 mm 40+6 weeks Normal HC: 365 mm off charts weeks AC: 381 mm 42+0 weeks FL: 79 mm 40+3 weeks AMNIOTIC FLUID INDEX >26 WK CRL: mm weeks Cisterna Magna: mm CI: 81 RUQ: 4.72 LUQ: 4.45 Cerebellum: cm EFW: 4487 grams Percentile off charts RLQ: 1.88 LLQ: 1.64 Total: 12.7 cms Composite AGE= 41+1 wks EDC by US 4/4/19 BIOPHYSICAL PROFILE ANATOMY IDENTIFIED SCORE 0/2 Heart: 4-Chamber X Rate: 135 BPM LVOT: RVOT: Amniotic Fluid(>2cms)____ Stomach: X Kidneys: Respirations (>30 secs) Bladder: X Post. Fossa: Body Flex/Extension 3 vessel cord: Ventricles: cord insertion: Lips:____ Extremity Flex/Extension spinal morphology: Nose: Total Score= Palate: NS=not seen Comments: Limited visualization of head/cervix area due to position and maternal body habitus.
== END 2018-07-21 01:07 ==
PROVIDERS: PCP Nurse Practitioner Family; Visit Provider Obstetrics & Gynecology Gynecology
DX: Z34.93 Encounter for supervision of normal pregnancy, unspecified, third trimester (principal)
CPT/HCPCS: 76816

== ENCOUNTER 2018-07-21 09:56 | Outpatient (CLI) | payer BC, SELFPAY ==
[2018-07-21 11:17] LABS: TSH (W/Ref FT4) 1.78 uIU/mL (0.358-3.74)
== END 2018-07-21 10:16 ==
PROVIDERS: PCP Nurse Practitioner Family; Visit Provider Obstetrics & Gynecology Gynecology
DX: E03.9 Hypothyroidism, unspecified (principal)
CPT/HCPCS: 84443

== ENCOUNTER 2018-07-25 07:47 | Inpatient (IN) | payer BC, SELFPAY ==
[2018-07-25 10:36] LABS: HCT 37.8 % (36.0-46.0); HGB 12.6 g/dL (12.0-15.5); Mean Corp. HGB Concentration 33.3 g/dL (32.0-36.0); Mean Corpuscular Hemoglobin 29.3 pg (27.0-33.0); Mean Corpuscular Volume 87.9 fL (80-95); Mean Platelet Volume 10.9 fL (8.0-11.0); Platelet Count 197 x1000/uL (130-400); RBC Distribution Width 15.5 % (11.7-14.6); White Blood Cell Count 8.39 k/cumm (4.4-10.8)
[2018-07-25] MEDS: Lactated Ringers 1,000 ML 125 ML IV ×2 (14:13→19:29)
[2018-07-26] MEDS: Lactated Ringers 1,000 ML 125 ML IV ×6 (04:07→23:35)
[2018-07-26] MEDS: fentaNYL 100 MCG/2 ML VIAL (05:44)
[2018-07-26] MEDS: Bupivacaine 0.25% Pres-Free 30 ML VIAL (05:47)
[2018-07-26] MEDS: Sodium Citrate 30 ML CUP (12:58)
[2018-07-26] MEDS: ceFAZolin 1,000 MG VIAL 1000 MG (12:59)
[2018-07-26] MEDS: AZITHROMYCIN 500 MG in Normal Saline 250 ML 250 MG IVPB (13:55)
[2018-07-26] MEDS: Lactated Ringers 1,000 ML 200 ML IV ×2 (14:13→16:05)
[2018-07-26] MEDS: ceFAZolin 3,000 MG in Normal Saline 100 ML 200 MG IVPB ×2 (14:14→22:40)
--- NOTE | 2018-07-26 15:13 | W.SURGCON ---
Date of service: 07/26/18 Time of Service: 15:13 Assessment and Plan (1) Bladder tear, intraoperative: Current visit: Yes Status: Acute A\\ 10 cm Bladder tear intra-operative P\\ 2 layer repair of bladder History of Present Illness Chief Complaint: Bladder injury during Narrative: Enedelia is a pleasant 38 year old female who went to the OR for an emergent . While trying to deliver her baby the bladder tore. I was called in to repair the bladder. There is a 10 cm full thickness tear in the bladder. Gross is in place. Patient has an epidural in place. Consults Consult date: 07/26/18 Requesting physician: Maureen Weller Review of Systems Review of Systems Patient in the operating room sedated. No ROS done PFSH Medical History Reactive depression (situational) (Acute) Other social stressor (Acute) Alvarez cerclage present (Acute) Hx of female infertility BMI 45.0-49.9, adult (Chronic) PCOS (polycystic ovarian syndrome) (Chronic) Hypothyroidism (acquired) (Chronic) Surgical History Colonoscopy - IV Sedation (12/01/15) Family History Mother Essential hypertension Trigeminal neuralgia of right side of face Lupus (systemic lupus erythematosus) Father Diabetes Essential hypertension Social History Smoking/Tobacco Use Status: Never Alcohol Intake: current Alcohol Intake frequency: a few times a month Drug use: Never Substance use type: does not use Adopted: No Foster care: No Household members: other Details: Dariel, stepdaughter Number of Children: 0 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 Pets and animals: Yes (2 cats) What is your relationship status?: Panel score (0-1 are the most socially isolated patients): 1 What type of physical activity do you participate in: none Special josef needs: No Agree to transfusion: Yes Seatbelt use: always Helmet use: Yes Drive intox or ride w/intox light truck driver: No Water heater temp set <120 deg: Yes Working smoke detector in home: Yes Fire extinguisher in home: Yes Carbon monox detector in home: Yes Firearms in home: No Do you feel safe at home: Yes Do you feel safe in your relationship?: Yes Victim of physical abuse: No Victim of emotional abuse: No Victim of sexual abuse: No History History 2 Para Hx # Term Pregnancies 0 Multiple births 0 Hx # Pregnancies Ectopic pregnancies AB induced 0 Hx Number of Living Children 0 AB spontaneous 1 Past Pregnancies Del. Date GA/Weeks # Outcome Route Wgt Sex Labor Lgth Anesthesia Location Prov Complic 08/12/16 19 No Successful vaginal Male Delivery Date: 08/12/16 On 01/18/18 @ 18:11 Anya Bradford IVF . Painless cervical dilatation at 18-6/7 weeks. Membranes prolapsing into the vagina at time of initial presentation. Went on to have an induction of labor delivered a non-viable named Amador Salinasrabee. Results Labs : 07/25/18 10:08
--- NOTE | 2018-07-26 15:16 | SCONE_ITS ---
Date of service: 07/26/18 Time of Service: 15:13 Assessment and Plan (1) Bladder tear, intraoperative: Current visit: Yes Status: Acute A\\ 10 cm Bladder tear intra-operative P\\ 2 layer repair of bladder History of Present Illness Chief Complaint: Bladder injury during Narrative: Enedelia is a pleasant 38 year old female who went to the OR for an emergent . While trying to deliver her baby the bladder tore. I was called in to repair the bladder. There is a 10 cm full thickness tear in the bladder. Gross is in place. Patient has an epidural in place. Consults Consult date: 07/26/18 Requesting physician: Maureen Weller Review of Systems Review of Systems Patient in the operating room sedated. No ROS done PFSH Medical History Reactive depression (situational) (Acute) Other social stressor (Acute) Alvarez cerclage present (Acute) Hx of female infertility BMI 45.0-49.9, adult (Chronic) PCOS (polycystic ovarian syndrome) (Chronic) Hypothyroidism (acquired) (Chronic) Surgical History Colonoscopy - IV Sedation (12/01/15) Family History Mother Essential hypertension Trigeminal neuralgia of right side of face Lupus (systemic lupus erythematosus) Father Diabetes Essential hypertension Social History Smoking/Tobacco Use Status: Never Alcohol Intake: current Alcohol Intake frequency: a few times a month Drug use: Never Substance use type: does not use Adopted: No Foster care: No Household members: other Details: Dariel, stepdaughter Number of Children: 0 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 Pets and animals: Yes (2 cats) What is your relationship status?: Panel score (0-1 are the most socially isolated patients): 1 What type of physical activity do you participate in: none Special josef needs: No Agree to transfusion: Yes Seatbelt use: always Helmet use: Yes Drive intox or ride w/intox route delivery service driver: No Water heater temp set <120 deg: Yes Working smoke detector in home: Yes Fire extinguisher in home: Yes Carbon monox detector in home: Yes Firearms in home: No Do you feel safe at home: Yes Do you feel safe in your relationship?: Yes Victim of physical abuse: No Victim of emotional abuse: No Victim of sexual abuse: No History History 2 Para Hx # Term Pregnancies 0 Multiple births 0 Hx # Pregnancies Ectopic pregnancies AB induced 0 Hx Number of Living Children 0 AB spontaneous 1 Past Pregnancies Del. Date GA/Weeks # Outcome Route Wgt Sex Labor Lgth Anesthesia Location Prov Complic 08/12/16 19 No Successful vaginal Male Delivery Date: 08/12/16 On 01/18/18 @ 18:11 Anya Bradford IVF . Painless cervical dilatation at 18-6/7 weeks. Membranes prolapsing into the vagina at time of initial presentation. Went on to have an induction of labor delivered a non-viable named Amador Salinasrabee. Results Labs : 07/25/18 10:08
--- NOTE | 2018-07-26 15:25 | W.PM.OP ---
Date of service: 07/26/18 Time of Service: 15:00 Operative Note DATE OF PROCEDURE: 07/26/18 PRE-OP DIAGNOSIS: Intra-operative Bladder tear POST-OP DIAGNOSIS: same PROCEDURE: 2 Layer repair of bladder tear SURGEON: Ana Smith ASSISTING SURGEON: Maureen Weller METER SHOP SUPERVISOR: Evangelista Ennis ANESTHESIA: spinal PATHOLOGY: none sent COMPLICATIONS: None Patient was transported to: PACU Patient's condition: stable Indications: Mrs. Jose is a pleasant 38 year old female who was brought to the OR for an emergent . While trying to deliver the patient the bladder was injured. There was a full thickness tear noted and I was asked to help. Findings: 10 cm full thickness tear Procedure Description: The edges of the tear were grasped with Babcocks. It was closed with 2-0 vicryl running suture. The tear measured approximately 10 cm. Once the running suture was finished the bladder started to fill with urine. A second layer of sutures were done with 3-0 vicryl. These were impricated single sutures. Once these were in place the bladder was filled with 70 cc of methylin blue. No leaks were identified. At this point I left the OR and Dr. Weller and Dr. Bey continued closing the uterus. Gross catheter to be left in for at least 10 days.
--- NOTE | 2018-07-26 15:35 | ROE_ITS ---
Date of service: 07/26/18 Time of Service: 15:00 Operative Note DATE OF PROCEDURE: 07/26/18 PRE-OP DIAGNOSIS: Intra-operative Bladder tear POST-OP DIAGNOSIS: same PROCEDURE: 2 Layer repair of bladder tear SURGEON: Ana Smith ASSISTING SURGEON: Maureen Weller THERAPEUTIC RIDING INSTRUCTOR: Evangelista Ennis ANESTHESIA: spinal PATHOLOGY: none sent COMPLICATIONS: None Patient was transported to: PACU Patient's condition: stable Indications: Mrs. Jose is a pleasant 38 year old female who was brought to the OR for an emergent . While trying to deliver the patient the bladder was injured. There was a full thickness tear noted and I was asked to help. Findings: 10 cm full thickness tear Procedure Description: The edges of the tear were grasped with Babcocks. It was closed with 2-0 vicryl running suture. The tear measured approximately 10 cm. Once the running suture was finished the bladder started to fill with urine. A second layer of sutures were done with 3-0 vicryl. These were impricated single sutures. Once these were in place the bladder was filled with 70 cc of methylin blue. No leaks were identified. At this point I left the OR and Dr. Weller and Dr. Bey continued closing the uterus. Gross catheter to be left in for at least 10 days.
[2018-07-26 16:52] LABS: HCT 33.1 % (36.0-46.0)
[2018-07-26] MEDS: Bacitracin 30 GM TUBE (17:15)
[2018-07-26 17:56] VITALS: BP 145/83; PULSE 142; RESP 17; TEMP 36.6; O2SAT 100
[2018-07-26 18:01] VITALS: BP 142/84; PULSE 133; RESP 14; TEMP 36.6; O2SAT 100
[2018-07-26 18:06] VITALS: BP 129/85; PULSE 132; RESP 12; TEMP 36.6; O2SAT 94
[2018-07-26 18:11] VITALS: BP 157/89; PULSE 136; RESP 18; TEMP 36.6; O2SAT 97
[2018-07-26 18:26] VITALS: BP 162/95; PULSE 126; RESP 14; TEMP 35.9; O2SAT 95
[2018-07-26 22:03] LABS: Mean Corp. HGB Concentration 33.3 g/dL (32.0-36.0); Mean Corpuscular Hemoglobin 29.6 pg (27.0-33.0); Mean Corpuscular Volume 88.9 fL (80-95); Mean Platelet Volume 10.4 fL (8.0-11.0); Platelet Count 199 x1000/uL (130-400); RBC 3.71 m/cumm (4.00-5.20); RBC Distribution Width 15.5 % (11.7-14.6); White Blood Cell Count 24.86 k/cumm (4.4-10.8)
[2018-07-26] MEDS: Enoxaparin 40 MG/0.4 ML SYR SC (22:56)
[2018-07-27] MEDS: Acetaminophen 325 MG TAB 650 MG PO (02:02)
[2018-07-27] MEDS: ceFAZolin 3,000 MG in Normal Saline 100 ML 200 MG IVPB (03:43)
[2018-07-27] MEDS: oxyCODONE 5 mg/Acetaminophen 325 mg TAB PO ×4 (05:50→22:08)
[2018-07-27 08:00] LABS: HCT 27.5 % (36.0-46.0); Mean Corp. HGB Concentration 32.7 g/dL (32.0-36.0); Mean Corpuscular Hemoglobin 29.5 pg (27.0-33.0); Mean Corpuscular Volume 90.2 fL (80-95); Mean Platelet Volume 10.4 fL (8.0-11.0); Platelet Count 168 x1000/uL (130-400); RBC 3.05 m/cumm (4.00-5.20); RBC Distribution Width 15.4 % (11.7-14.6); White Blood Cell Count 16.48 k/cumm (4.4-10.8)
[2018-07-27] MEDS: Lactated Ringers 1,000 ML 125 ML IV (08:32)
--- NOTE | 2018-07-27 10:29 | ROE_ITS ---
REPORT OF OPERATIVE PROCEDURE DATE OF PROCEDURE July 26, 2018 PREOPERATIVE DIAGNOSES Persistent repetitive deep variable decelerations, category II, EFM not responsive to interventions. POSTOPERATIVE DIAGNOSES Persistent repetitive deep variable decelerations, category II, EFM not responsive to interventions. PROCEDURE Primary Caesarean section low transverse, cystotomy repair, cervical laceration repair. SURGEON Maureen Weller M.D. DISH NETWORK INSTALLER Anya Bradford M.D. ADDITIONAL DISH NETWORK INSTALLER Hansa Singer ANESTHESIA Spinal converted to general. ESTIMATED BLOOD LOSS 1100 cc FLUIDS Per Anesthesia records. URINE OUTPUT FINDINGS Viable male , 8 pounds 14 ounces, 7 cm anterior dome of the bladder laceration, and anterior cervical laceration. Intraoperative consult, Dr. Smith for cystotomy repair. PROCEDURE The patient was taken to the Operating Room, where she was properly identified. She was then placed on the Operating Table in the upright position. Spinal anesthesia was then induced. The patient was placed on the operating table in a dorsal supine position with a left lateral tilt. A vaginal prep was then performed using Betadine solution. A Gross catheter was placed. SCDs boots were on. She was then prepped and draped in the normal sterile fashion. A formal time-out procedure was then performed confirming patient, procedure. Preoperative antibiotics given Ancef 3 grams IVP. After establishing adequate spinal anesthesia, a Pfannenstiel incision was made approximately 2 centimeters above the symphysis pubis, carried down to the underlying fascia. The fascia was nicked in the midline and extended sharply laterally. The inferior aspect of the fascia was then grasped bilaterally with the Petros clamps, tented up and the rectus muscles dissected off sharply. Attention was then turned to the superior aspect. And again, in a similar fashion, the fascia was grasped bilaterally with the Petros clamps, tented up and the rectus muscles dissected off sharply. The rectus muscles were in the midline. The peritoneum was entered sharply. This was extended superior and then inferiorly with good visualization of the bladder. The bladder blade was positioned. It was determined predelivery that the estimated weight per ultrasound was 4400 grams. It was estimated at this point, there would be need for more room to expedite delivery, Chernin incisions were made in the rectus muscles bilaterally. The vesicouterine peritoneum was then grasped with Pick- Ups, entered sharply and then extended superior, then inferiorly with good visualization of the bladder. The lower uterine segment was transversely incised. This was extended manually. Upon entering the uterine cavity, there was thick meconium noted. The caramel coloring operator was present for the delivery. Dr. Weller initially attempted delivery, unable to lift the infant's head out of the cervix and therefore, position was swapped with the nurse first assist, who placed her hand similarly into the uterine cavity and with upward pressure, the negative pressure was broken. Still difficult to deliver the 's head, so the vacuum was then placed on the caput and suction was applied and the 's head was delivered. No nuchal cord. Shoulders and body followed. The cord was clamped x2. The infant handed off to the waiting Peds M.D. A segment of cord was cut for a pH and cord blood was sent. The placenta was extracted by external massage. The uterus was exteriorized and cleared of all clots and debris. I began the uterus closure with #0- Vicryl from the left apices in a running locked fashion. After the first closure, there was concern regarding the bladder. The bladder was thoroughly inspected, it was noted in the dome of the bladder there was a cystotomy. Intraoperative consult with Dr. Smith from General Surgery was obtained. She evaluated the cystotomy and repaired in its entirety without difficulty. Her dictation will be dictated under separate cover post cystotomy repair. 70 cc of sterile formula was then placed retrograde through the catheter into the bladder. There was no evidence of leak. Attention was turned to the remaining closure of the uterine cavity with #0- Vicryl in a running locked fashion. A second imbricating layer was used to achieve hemostasis. Upon suturing the first layer of the uterine hysterotomy closure, there appeared to be a cervical laceration on the anterior point, which was visible intraperitoneally. This was closed with #0-Vicryl in a running locked fashion to the extent of which could be seen abdominally. The remainder of exploration and repair of the cervical laceration was performed vaginally at the end of the procedure. Once the uterus was closed in a double layer fashion with 0-Vicryl in a running locked fashion, then a second imbricating layer to achieve hemostasis, the uterine incision was thoroughly inspected and found to be hemostatic. The uterus was returned to the abdomen. The gutters were clear of all clots and debris. The incision and cystotomy site were re-inspected and found to be hemostatic. The fascia was closed with 0-PDS from each apices in a running fashion and tied in the middle. The subcuticular layer was copiously irrigated, it was inspected and noted to be hemostatic. It was closed in two layers of 0-plain gut suture and the skin was closed with annemarie. At this point, the surgeons broke scrub, repositioned the patient in the dorsal lithotomy position, and re-prepped and draped. A posterior weighed speculum was placed in the posterior vagina. Patel retractor anteriorly and a Sheldon retractor laterally. The cervix was identified, it was grasped circumferentially with the Allis clamps. The cervix was thoroughly inspected and there was a longitudinal laceration in the cervix that extended the full length. The remainder of the cervix was repaired with #2-0 Vicryl in a running locked fashion. The entire cervix was inspected, there was one area of a small bleed in the posterior cervix, which was made hemostatic with a [id number] suture of 0-Vicryl. There was a right vaginal sulcus tear, which was made hemostatic again with a #2-0 Vicryl in a [id number] fashion. Once the laceration was repaired, the vagina and cervix were inspected and found to be hemostatic, a vaginal pack was placed for tamponade. The Gross was left in situ and she was awakened and taken to the Recovery Room in stable condition. Her intraoperative hemoglobin was 11.2. She received 2 doses of Ancef 3 grams four hours apart and her total Estimated blood loss was 1100 cc. [facility]
[2018-07-27] MEDS: ceFAZolin 1,000 MG VIAL 1000 MG (11:23)
--- NOTE | 2018-07-27 13:22 | W.PM.PROGNOT ---
Date of Service Date of service: 07/27/18 Time of Service: 13:22 Assessment and Plan (1) Bladder tear, intraoperative: Current visit: Yes Status: Acute s/p intraoperative repair by Dr. Smith on 07/26/18. Patient also being seen by Dr. Chappell (Urology). Will leave sow in per urology recommendations. Nothing further to add at this time. Will sign off. Please call as needed. Subjective Interval history since last seen: Patient seen on OB floor. Denies any complaints except surgical site pain with coughing as expected. Tolerating po diet. Sow in place. Discussed with nurse. Patient has been seen by urology (Dr. Chappell). Recommended to leave sow in x 7 days. Exam Const General: cooperative and no acute distress HENMT Head: normocephalic and atraumatic Eyes Sclera: sclerae normal Other: sow - pinkish yellow clear urine in bag Neuro General: alert and oriented x3 Speech: speech normal Objective Objective Clinical Data: Abnormal lab results 07/26/18 07/26/18 07/27/18 Range/Units 16:45 21:55 07:45 WBC 24.86 H 16.48 H D (4.4-10.8) k/cumm RBC 3.71 L 3.05 L (4.00-5.20) m/cumm Hgb 11.0 L 11.0 L 9.0 L (12.0-15.5) g/dL Hct 33.1 L 33.0 L 27.5 L (36.0-46.0) % RDW 15.5 H 15.4 H (11.7-14.6) % Vital Signs Temperature 35.9 C L 07/26/18 18:26 Pulse 126 H 07/26/18 18:26 Respiratory Rate 14 07/26/18 18:26 Blood Pressure 162/95 H 07/26/18 18:26 Pulse Oximetry 95 07/26/18 18:26 Respiratory End-tidal CO2 31 07/26/18 18:26 Oxygen Delivery Method Room Air 07/26/18 18:26 Oxygen Flow Rate 10 07/26/18 18:01 Pain Level 2 07/27/18 12:40 Intake & Output 07/26/18 07/27/18 07/27/18 23:59 11:59 23:59 Intake Total 3845.833 / 5560.416 2099 Output Total 1730 / 1730 Balance 2115.833 / 3830.416 2099 Weight 147.645 kg Intake: IV 3845.833 / 5560.416 2099 Output: Urine 430 / 430 Estimated Blood Loss 1300 / 1300 Other: Urine Color Edward Urine Appearance Cloudy Hematuria Comment FORMULA USED TO TEST BLADDER REPAIR. 70 ML FORMULA INJECTED. 330 ML URINE MIXED W/FORMULA. CLOUDY DUE TO PRESENCE OF FORMULA. SOME BLOOD PRESENT. Emesis Description None Laboratory Results WBC 16.48 k/cumm (4.4-10.8) H D 07/27/18 07:45 RBC 3.05 m/cumm (4.00-5.20) L 07/27/18 07:45 Hgb 9.0 g/dL (12.0-15.5) L 07/27/18 07:45 Hct 27.5 % (36.0-46.0) L 07/27/18 07:45 MCV 90.2 fL (80-95) 07/27/18 07:45 MCH 29.5 pg (27.0-33.0) 07/27/18 07:45 MCHC 32.7 g/dL (32.0-36.0) 07/27/18 07:45 RDW 15.4 % (11.7-14.6) H 07/27/18 07:45 Plt Count 168 x1000/uL (130-400) 07/27/18 07:45 MPV 10.4 fL (8.0-11.0) 07/27/18 07:45 Patient ABO/Rh B Positive 07/25/18 10:08 Antibody Screen Negative 07/25/18 10:08
--- NOTE | 2018-07-27 13:44 | W.UROLOGYCON ---
Date of service: 07/27/18 Time of Service: 13:44 History of Present Illness Chief Complaint: Bladder injury Narrative: This is a 38-year-old woman who underwent section just yesterday. Intraoperatively, a tear up toward the dome of the bladder was identified. It was estimated to be about 10 cm in length and was repaired with Vicryl in 2 separate layers. I have been asked for advice regarding bladder drainage. The patient has no previous history of pelvic radiation. She has no autoimmune disease and is not on chronic steroids. Review of Systems Review of Systems No fevers or chills No vision change or dysphasia No diabetes or thyroid No shortness of breath, cough or hemoptysis No chest pain or palpitations No bleeding disorders or anemia PFSH Medical History Reactive depression (situational) (Acute) Other social stressor (Acute) Alvarez cerclage present (Acute) Hx of female infertility BMI 45.0-49.9, adult (Chronic) PCOS (polycystic ovarian syndrome) (Chronic) delivery, delivered, current hospitalization (Acute) Hypothyroidism (acquired) (Chronic) Surgical History Colonoscopy - IV Sedation (12/01/15) Family History Mother Essential hypertension Trigeminal neuralgia of right side of face Lupus (systemic lupus erythematosus) Father Diabetes Essential hypertension Social History Smoking/Tobacco Use Status: Never Alcohol Intake: current Alcohol Intake frequency: a few times a month Drug use: Never Substance use type: does not use Adopted: No Foster care: No Household members: other Details: Dariel, stepdaughter Number of Children: 0 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 Pets and animals: Yes (2 cats) What is your relationship status?: Panel score (0-1 are the most socially isolated patients): 1 What type of physical activity do you participate in: none Special josef needs: No Agree to transfusion: Yes Seatbelt use: always Helmet use: Yes Drive intox or ride w/intox tank truck driver: No Water heater temp set <120 deg: Yes Working smoke detector in home: Yes Fire extinguisher in home: Yes Carbon monox detector in home: Yes Firearms in home: No Do you feel safe at home: Yes Do you feel safe in your relationship?: Yes Victim of physical abuse: No Victim of emotional abuse: No Victim of sexual abuse: No History History 2 Para Hx # Term Pregnancies 0 Multiple births 0 Hx # Pregnancies Ectopic pregnancies AB induced 0 Hx Number of Living Children 0 AB spontaneous 1 Past Pregnancies Del. Date GA/Weeks # Outcome Route Wgt Sex Labor Lgth Anesthesia Location Prov Complic 08/12/16 19 No Successful vaginal Male Delivery Date: 08/12/16 On 01/18/18 @ 18:11 Anya Bradford IVF . Painless cervical dilatation at 18-6/7 weeks. Membranes prolapsing into the vagina at time of initial presentation. Went on to have an induction of labor delivered a non-viable named Amador Catherine. Exam Narrative Exam Narrative: She is a very pleasant young woman who does not appear to be in any current distress. She is quite cooperative and engaged. Her vital signs are documented elsewhere in the chart She does not appear septic or toxic. Her urine is clear and her catheter drainage bag She is awake, alert and oriented. Results Last Vital Signs Temp 35.9 C L 07/26/18 18:26 Pulse 126 H 07/26/18 18:26 Resp 14 07/26/18 18:26 BP 162/95 H 07/26/18 18:26 Pulse Ox 95 07/26/18 18:26 Labs : 07/27/18 07:45 Laboratory Results - last 24 hr 07/26/18 07/26/18 07/27/18 16:45 21:55 07:45 WBC 24.86 H 16.48 H D RBC 3.71 L 3.05 L Hgb 11.0 L 11.0 L 9.0 L Hct 33.1 L 33.0 L 27.5 L MCV 88.9 90.2 MCH 29.6 29.5 MCHC 33.3 32.7 RDW 15.5 H 15.4 H Plt Count 199 168 MPV 10.4 10.4 Assessment and Plan (1) Bladder tear, intraoperative: Current visit: Yes Status: Acute We talked about the bladder is ability to heal as long as a catheter is left in place for 7-10 days. There are some conditions that prevent healing, but the patient has not of these risks. These would include pelvic tumors, previous pelvic radiation, the presence of a foreign body or abscess, or medical conditions/medications that cause delayed wound healing. As long as she can tolerate the catheter for a week, we should be able to remove it without any additional imaging. If the catheter is very bothersome for her and we try to remove the catheter before the week is up, we might want to arrange a cystogram just to confirm that the bladder has completely healed. The 2 issues we can see in these patients in the short run include bleeding and infection. Blood in the urine should be expected as the bladder heals. The only big issue would be if the patient develops a blood clot in the urine and the catheter stops draining. Otherwise no specific treatment should be needed for any blood in the urine. Any patient that has an indwelling catheter is at risk for bacteriuria. I think it is reasonable to give this young lady a low dose of an antibiotic until the catheter is removed. She tells me that she will be breast-feeding, so a single dose of Keflex 250 mg daily should be safe and reasonable. I would not expect any long-term sequelae from this issue.
[2018-07-27] MEDS: guaiFENesin/D-METHORPHAN HB 5 ML CUP 10 ML PO ×2 (13:57→22:08)
[2018-07-27] MEDS: Lactated Ringers 1,000 ML 120 ML IV (16:30)
[2018-07-27] MEDS: Docusate Sodium 100 MG CAP PO ×2 (17:26→22:08)
[2018-07-27] MEDS: Enoxaparin 40 MG/0.4 ML SYR SC (17:27)
[2018-07-28] MEDS: oxyCODONE 5 mg/Acetaminophen 325 mg TAB PO ×4 (02:10→18:53)
[2018-07-28] MEDS: Docusate Sodium 100 MG CAP PO (08:15)
[2018-07-28] MEDS: Ibuprofen 600 MG TAB PO ×3 (08:15→20:33)
--- NOTE | 2018-07-28 10:20 | W.PM.PROGNOT ---
Date of Service Date of service: 08/04/18 Time of Service: 07:11 Subjective Interval history since last seen: Encounter entered in error Objective Objective Clinical Data: Vital Signs Temperature 35.9 C L 07/26/18 18:26 Pulse 126 H 07/26/18 18:26 Respiratory Rate 14 07/26/18 18:26 Blood Pressure 162/95 H 07/26/18 18:26 Pulse Oximetry 95 07/26/18 18:26 Respiratory End-tidal CO2 31 07/26/18 18:26 Oxygen Delivery Method Room Air 07/26/18 18:26 Oxygen Flow Rate 10 07/26/18 18:01 Pain Level 8 07/28/18 08:15 Intake & Output 07/27/18 07/27/18 07/28/18 11:59 23:59 11:59 Intake Total 2100 / 3654.584 1554.584 / 3654.584 Balance 2100 / 3654.584 1554.584 / 3654.584 Intake: IV 2100 / 3654.584 1554.584 / 3654.584 Laboratory Results WBC 16.48 k/cumm (4.4-10.8) H D 07/27/18 07:45 RBC 3.05 m/cumm (4.00-5.20) L 07/27/18 07:45 Hgb 9.0 g/dL (12.0-15.5) L 07/27/18 07:45 Hct 27.5 % (36.0-46.0) L 07/27/18 07:45 MCV 90.2 fL (80-95) 07/27/18 07:45 MCH 29.5 pg (27.0-33.0) 07/27/18 07:45 MCHC 32.7 g/dL (32.0-36.0) 07/27/18 07:45 RDW 15.4 % (11.7-14.6) H 07/27/18 07:45 Plt Count 168 x1000/uL (130-400) 07/27/18 07:45 MPV 10.4 fL (8.0-11.0) 07/27/18 07:45 Patient ABO/Rh B Positive 07/25/18 10:08 Antibody Screen Negative 07/25/18 10:08
--- NOTE | 2018-07-28 10:25 | W.PM.PROGNOT ---
Date of Service Date of service: 07/28/18 Time of Service: 10:07 Assessment and Plan (1) Bladder tear, intraoperative: Current visit: No Status: Acute She will need her catheter in place for a week. If she needs to have it removed before the week, I did recommend a cystogram to make sure her bladder has healed Subjective Interval history since last seen: She feels comfortable. She has no bladder spasms. She is not seeing any gross hematuria Exam Narrative Exam Narrative: She is in no current distress. Her urine is grossly clear. Her vital signs are documented elsewhere. Objective Objective Clinical Data: Vital Signs Temperature 35.9 C L 07/26/18 18:26 Pulse 126 H 07/26/18 18:26 Respiratory Rate 14 07/26/18 18:26 Blood Pressure 162/95 H 07/26/18 18:26 Pulse Oximetry 95 07/26/18 18:26 Respiratory End-tidal CO2 31 07/26/18 18:26 Oxygen Delivery Method Room Air 07/26/18 18:26 Oxygen Flow Rate 10 07/26/18 18:01 Pain Level 8 07/28/18 08:15 Intake & Output 07/27/18 07/27/18 07/28/18 11:59 23:59 11:59 Intake Total 2100 / 3654.584 1554.584 / 3654.584 Balance 2100 / 3654.584 1554.584 / 3654.584 Intake: IV 2099 / 3654.584 1554.584 / 3654.584 Laboratory Results WBC 16.48 k/cumm (4.4-10.8) H D 07/27/18 07:45 RBC 3.05 m/cumm (4.00-5.20) L 07/27/18 07:45 Hgb 9.0 g/dL (12.0-15.5) L 07/27/18 07:45 Hct 27.5 % (36.0-46.0) L 07/27/18 07:45 MCV 90.2 fL (80-95) 07/27/18 07:45 MCH 29.5 pg (27.0-33.0) 07/27/18 07:45 MCHC 32.7 g/dL (32.0-36.0) 07/27/18 07:45 RDW 15.4 % (11.7-14.6) H 07/27/18 07:45 Plt Count 168 x1000/uL (130-400) 07/27/18 07:45 MPV 10.4 fL (8.0-11.0) 07/27/18 07:45 Patient ABO/Rh B Positive 07/25/18 10:08 Antibody Screen Negative 07/25/18 10:08
[2018-07-28] MEDS: Cephalexin 250 MG CAP PO ×2 (11:10→20:33)
[2018-07-28] MEDS: Enoxaparin 40 MG/0.4 ML SYR SC (17:42)
[2018-07-29] MEDS: oxyCODONE 5 mg/Acetaminophen 325 mg TAB PO ×4 (01:50→19:40)
[2018-07-29] MEDS: Ibuprofen 600 MG TAB PO ×3 (01:51→19:39)
[2018-07-29] MEDS: Levothyroxine 100 MCG TAB PO (06:02)
[2018-07-29] MEDS: Docusate Sodium 100 MG CAP PO (08:27)
[2018-07-29] MEDS: Cephalexin 250 MG CAP PO ×2 (08:27→19:39)
--- NOTE | 2018-07-29 08:48 | W.PM.PROGNOT ---
Date of Service Date of service: 07/29/18 Time of Service: 08:48 Assessment and Plan (1) Bladder tear, intraoperative: Current visit: Yes Status: Acute Continue routine care. Maintain sow catheter. Encourage ambulation. (2) Status post primary low transverse section: Current visit: Yes Status: Acute Subjective Interval history since last seen: Doing well this morning. Moderate abdominal pain and bloating today. Appetite ok. No nausea. Minimal lochia Objective Objective Clinical Data: Vital Signs Temperature 96.6 F L 07/26/18 18:26 Pulse 126 H 07/26/18 18:26 Respiratory Rate 14 07/26/18 18:26 Blood Pressure 162/95 H 07/26/18 18:26 Pulse Oximetry 95 07/26/18 18:26 Respiratory End-tidal CO2 31 07/26/18 18:26 Oxygen Delivery Method Room Air 07/26/18 18:26 Oxygen Flow Rate 10 07/26/18 18:01 Pain Level 4 07/29/18 08:28 Laboratory Results WBC 16.48 k/cumm (4.4-10.8) H D 07/27/18 07:45 RBC 3.05 m/cumm (4.00-5.20) L 07/27/18 07:45 Hgb 9.0 g/dL (12.0-15.5) L 07/27/18 07:45 Hct 27.5 % (36.0-46.0) L 07/27/18 07:45 MCV 90.2 fL (80-95) 07/27/18 07:45 MCH 29.5 pg (27.0-33.0) 07/27/18 07:45 MCHC 32.7 g/dL (32.0-36.0) 07/27/18 07:45 RDW 15.4 % (11.7-14.6) H 07/27/18 07:45 Plt Count 168 x1000/uL (130-400) 07/27/18 07:45 MPV 10.4 fL (8.0-11.0) 07/27/18 07:45 Patient ABO/Rh B Positive 07/25/18 10:08 Antibody Screen Negative 07/25/18 10:08
[2018-07-29] MEDS: Enoxaparin 40 MG/0.4 ML SYR SC (19:41)
[2018-07-30] MEDS: oxyCODONE 5 mg/Acetaminophen 325 mg TAB PO ×3 (04:09→13:26)
[2018-07-30] MEDS: Ibuprofen 600 MG TAB PO ×2 (04:11→09:59)
[2018-07-30] MEDS: Levothyroxine 100 MCG TAB PO (07:09)
[2018-07-30] MEDS: Docusate Sodium 100 MG CAP PO (08:49)
[2018-07-30] MEDS: Cephalexin 250 MG CAP PO (08:49)
--- NOTE | 2018-07-30 11:39 | W.PM.PROGNOT ---
Date of Service Date of service: 07/30/18 Time of Service: 11:40 Assessment and Plan (1) Status post primary low transverse section: Current visit: Yes Status: Acute Plan for discharge home today. Follow up in the clinic in 1 week for staple removal. Maintain sow catheter on discharge until evaluation with urology complete. Continue Keflex twice daily. Follow up with urology. (2) Bladder tear, intraoperative: Current visit: Yes Status: Acute Subjective Interval history since last seen: Doing well. Pain well controlled Ambulatory Tolerating regular diet. No fevers or chills. Minimal lochia. Exam GI Other: Abd - Soft. Appropriately tender. Incision C/D/I. Ruben remain in place. Sow draining clear urine Objective Objective Clinical Data: Vital Signs Temperature 96.6 F L 07/26/18 18:26 Pulse 126 H 07/26/18 18:26 Respiratory Rate 14 07/26/18 18:26 Blood Pressure 162/95 H 07/26/18 18:26 Pulse Oximetry 95 07/26/18 18:26 Respiratory End-tidal CO2 31 07/26/18 18:26 Oxygen Delivery Method Room Air 07/26/18 18:26 Oxygen Flow Rate 10 07/26/18 18:01 Pain Level 4 07/30/18 09:59 Laboratory Results WBC 16.48 k/cumm (4.4-10.8) H D 07/27/18 07:45 RBC 3.05 m/cumm (4.00-5.20) L 07/27/18 07:45 Hgb 9.0 g/dL (12.0-15.5) L 07/27/18 07:45 Hct 27.5 % (36.0-46.0) L 07/27/18 07:45 MCV 90.2 fL (80-95) 07/27/18 07:45 MCH 29.5 pg (27.0-33.0) 07/27/18 07:45 MCHC 32.7 g/dL (32.0-36.0) 07/27/18 07:45 RDW 15.4 % (11.7-14.6) H 07/27/18 07:45 Plt Count 168 x1000/uL (130-400) 07/27/18 07:45 MPV 10.4 fL (8.0-11.0) 07/27/18 07:45 Patient ABO/Rh B Positive 07/25/18 10:08 Antibody Screen Negative 07/25/18 10:08
== END 2018-07-30 15:20 | disposition home or self-care (01) | DRG 787 ==
PROVIDERS: Nurse Anesthetist, Certified Registered; Obstetrics & Gynecology; Surgery; Admitting Provider Obstetrics & Gynecology Gynecology; PCP Nurse Practitioner Family; Visit Provider Obstetrics & Gynecology Gynecology
PROC: 10D00Z1 Extraction of Products of Conception, Low, Open Approach (ICD-10-PCS; CPT 59514; principal; 2018-07-26 13:00)
PROC: 0TQB0ZZ Repair Bladder, Open Approach (ICD-10-PCS; CPT 51860; 2018-07-26 13:00)
PROC: 0UVC7ZZ Restriction of Cervix, Via Natural or Artificial Opening (ICD-10-PCS; CPT 57700; 2018-07-26 13:00)
DX: O76 Abnormality in fetal heart rate and rhythm complicating labor and delivery (principal); O63.9 Long labor, unspecified; N99.71 Accidental puncture and laceration of a genitourinary system organ or structure during a genitourinary system procedure; O77.0 Labor and delivery complicated by meconium in amniotic fluid; Z37.0 Single live birth; Z3A.38 38 weeks gestation of pregnancy; O42.02 Full-term premature rupture of membranes, onset of labor within 24 hours of rupture
CPT/HCPCS: 59514; 51860; 57720; 36415; 85027; 86850; 86900; 86901; 99231; 99233; 99252; J1650; NC; 85014; 85018; 87081; G0378; J0131; J0456; J0690; J1100; J2250; J2370; J2405; J3010; J3490

== ENCOUNTER 2018-08-04 00:29 | Observation (INO) | payer BC, SELFPAY ==
[2018-08-04] VITALS (12 sets, daily range): BP systolic 112–135; BP diastolic 67–91; PULSE 61–98; RESP 14–20; TEMP 36.1–37.2; O2SAT 96–100
--- NOTE | 2018-08-04 00:36 | W.ED.GENAD ---
Discharge Plan Disposition Patient Disposition: [facility] IN[facility]IENT Condition: Good Discharge Details Chief Complaint: Laceration Clinical Impression: Postoperative dehiscence of skin wound, Postoperative wound infection Primary Care Provider: Cata Hoskins ED Provider: Bertin Pendleton [place] Meds and New Rx's Prescriptions: No Action ibuprofen 600 mg tablet 600 mg PO TID RF: 0 ibuprofen 600 mg tablet 600 mg PO QID PRN (Reason: pain) Qty: 60 RF: 1 levothyroxine 100 MCG tablet 100 mcg PO DAILY 30 Days Qty: 90 RF: 3 Prenatabs Rx 1 EACH tablet 1 tab-cap PO DAILY RF: 0 cholecalciferol (vitamin D3) [Vitamin D3] 400 UNIT tablet 800 unit PO DAILY RF: 0 breast pump device .ROUTE .MEDSUPPLY Qty: 1 RF: 0 cephalexin 250 mg capsule 250 mg PO BID Qty: 20 RF: 0 omega-3 fatty acids-fish oil [Fish Oil] 1 EACH capsule 1 tab PO HS RF: 0 oxycodone-acetaminophen 5-325 mg Tablet 1 tab PO Q4H PRN PRNQty: 30 RF: 0 Medical Decision Making Wound culture obtained. We will start IV and get laboratory studies. Case discussed with OB, Dr. Weller. Patient will be made n.p.o. for possible surgical debridement in the morning. We will give a dose of IV Zosyn now. She will be admitted to OB, Dr. Weller for further management of wound dehiscence and infection. Medical Records Medical records reviewed: Yes I reviewed the patient's medical records. HPI General Mode of arrival: ambulatory. Date/Time Provider Initiated Documentation: 08/04/18 00:30. Limitations to Documentation: no limitations. Information obtained by: patient and old records reviewed. HPI Narrative: Patient presents to ED for evaluation of wound drainage. Patient had done on the . She had annemarie removed yesterday. Things looked fine at that time and Steri-Strips were applied. This evening she has had a significant amount of drainage from the incision. She denies fever. She denies pain. Gross catheter is still in place due to bladder injury during the operation on the . She contacted OB on-call and was referred into ED for evaluation. Related Data Home Medications Medication Instructions Recorded Confirmed omega-3 fatty acids-fish oil [Fish 1 tab PO HS 03/16/14 08/04/18 Oil] levothyroxine 100 mcg PO DAILY 30 Days #90 11/23/17 08/04/18 tab-cap Prenatabs Rx 1 tab-cap PO DAILY tab-cap 12/06/17 08/04/18 cholecalciferol (vitamin D3) 800 unit PO DAILY 12/06/17 08/04/18 [Vitamin D3] breast pump #1 each 05/17/18 08/02/18 cephalexin 250 mg capsule 250 mg PO BID #20 cap 07/28/18 08/04/18 oxycodone-acetaminophen 1 tab PO Q4H PRN PRN #30 tab 07/30/18 08/04/18 ibuprofen 600 mg tablet 600 mg PO QID PRN #60 tab 08/02/18 08/04/18 ibuprofen 600 mg tablet 600 mg PO TID 08/02/18 08/02/18 Previous Rx's Medication Instructions Recorded levothyroxine 100 mcg PO DAILY 30 Days #90 11/23/17 tab-cap breast pump #1 each 05/17/18 cephalexin 250 mg capsule 250 mg PO BID #20 cap 07/28/18 oxycodone-acetaminophen 1 tab PO Q4H PRN PRN #30 tab 07/30/18 ibuprofen 600 mg tablet 600 mg PO QID PRN #60 tab 08/02/18 Allergies Allergy/AdvReac Type Severity Reaction Status Date / Time pollen extracts AdvReac Intermediate Unverified 08/04/18 00:37 cilantro Allergy Severe Numb Uncoded 08/04/18 00:37 mouth, hives cigarette smoke AdvReac Intermediate congestion Uncoded 08/04/18 00:37 dust AdvReac Intermediate congestion Uncoded 08/04/18 00:37 General Stated Complaint: Laceration NATALI: 3 Review of Systems Review of Systems 01/22 Review of Systems completed and is negative except as stated above in HPI (Systems reviewed: Const, Eyes, ENT, Resp, CV, GI, , MSK, Skin, Neuro) [facility] Medical History Bladder injury, open (Acute) Reactive depression (situational) (Acute) Other social stressor (Acute) Alvarez cerclage present (Acute) Hx of female infertility BMI 45.0-49.9, adult (Chronic) PCOS (polycystic ovarian syndrome) (Chronic) delivery, delivered, current hospitalization (Acute) Hypothyroidism (acquired) (Chronic) Surgical History Status post primary low transverse section (Acute) Colonoscopy - IV Sedation (12/01/15) Family History Mother Essential hypertension Trigeminal neuralgia of right side of face Lupus (systemic lupus erythematosus) Father Diabetes Essential hypertension Social History Smoking/Tobacco Use Status: Never Alcohol Intake: current Alcohol Intake frequency: a few times a month Drug use: Never Substance use type: does not use Adopted: No Foster care: No Household members: spouse, children and other Details: Dariel, and his stepdaughter, Alex Housing: house Number of Children: 1 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 Pets and animals: Yes (2 cats) What is your relationship status?: Panel score (0-1 are the most socially isolated patients): 1 What type of physical activity do you participate in: none Special josef needs: No Agree to transfusion: Yes Seatbelt use: always Helmet use: Yes Drive intox or ride w/intox cat driver: No Water heater temp set <120 deg: Yes Working smoke detector in home: Yes Fire extinguisher in home: Yes Carbon monox detector in home: Yes Firearms in home: No Do you feel safe at home: Yes Do you feel safe in your relationship?: Yes Victim of physical abuse: No Victim of emotional abuse: No Victim of sexual abuse: No History History 2 Para Hx # Term Pregnancies 0 Multiple births 0 Hx # Pregnancies Ectopic pregnancies AB induced 0 Hx Number of Living Children 0 AB spontaneous 1 Past Pregnancies Del. Date GA/Weeks # Outcome Route Wgt Sex Labor Lgth Anesthesia Location Prov Complic 08/12/16 19 No Successful vaginal Male 07/26/18 No Successful 4.111 kg Male 24hrs KP/AOC Delivery Date: 07/26/18 On 08/02/18 @ 11:18 [facility] for non-reassuring FHR @ 2+ station. Injury to dome of bladder and anterior wall of cervix, 'Alex' Delivery Date: 08/12/16 On 01/18/18 @ 18:11 [facility] IVF . Painless cervical dilatation at 18-6/7 weeks. Membranes prolapsing into the vagina at time of initial presentation. Went on to have an induction of labor delivered a non-viable infant named Amador Catherine. Exam Narrative Exam Narrative: Vitals: Afebrile. Vital signs normal. Const: Obese female in NAD. HEENT: NC/AT. Normal facial exam. Neck: Supple. Trachea midline. Lungs: Normal respiratory effort. Lungs are clear. Cor: RRR without murmur/gallop. Good radial pulses. GI: Soft. NT/ND. No guarding or rebound. Neuro: A+O x 3. CN grossly in tact. Good strength and no focal deficit. Ext: No C/C/E. No deformity or tenderness. Skin: Warm and dry without rash. C section wound has dehisced centrally. There is a large amount of dark reddish drainage that is foul-smelling. There is no overt pus. Wound appears to tract rather deep. There is no associated erythema. Course Vital Signs Temperature 97.0 F L 08/04/18 00:31 Pulse 85 08/04/18 00:31 Respiratory Rate 20 08/04/18 00:31 Blood Pressure 135/87 08/04/18 00:31 Pulse Oximetry 99 08/04/18 00:31 Temperature 97.0 F L 08/04/18 00:31 Temperature Source Skin 08/04/18 00:31 Pulse 85 08/04/18 00:31 Respiratory Rate 20 08/04/18 00:31 Blood Pressure 135/87 08/04/18 00:31 Blood Pressure Position Sitting 08/04/18 00:31 Pulse Oximetry 99 08/04/18 00:31 Oxygen Delivery Method Room Air 08/04/18 00:31 Oxygen Flow Rate 0 08/04/18 00:31
[2018-08-04 01:06] LABS: Abs Immature Grans 0.28 k/cumm (0.0-0.09); HCT 26.6 % (36.0-46.0); HGB 8.5 g/dL (12.0-15.5); Mean Corpuscular Hemoglobin 28.7 pg (27.0-33.0); Mean Corpuscular Volume 89.9 fL (80-95); Mean Platelet Volume 8.8 fL (8.0-11.0); Platelet Count 364 x1000/uL (130-400); RBC 2.96 m/cumm (4.00-5.20); RBC Distribution Width 14.5 % (11.7-14.6)
[2018-08-04 01:13] LABS: Anion Gap 11.5 mmol/L (3-11); BUN 13 mg/dL (7-18); CO2 23.5 mmol/L (21.0-32.0); CREATININE 0.75 mg/dL (0.55-1.02); Calcium 8.6 mg/dL (8.5-10.1); Chloride 106 mmol/L (98-107); Glucose 111 mg/dL (70-100); Potassium 3.6 mmol/L (3.5-5.1); Sodium 141 mmol/L (136-145)
[2018-08-04] MEDS: PIPERACILLIN/TAZO 3.375 GM in Normal Saline 50 ML IVPB ×4 (01:16→20:07)
[2018-08-04] MEDS: Normal Saline Flush 10 ML SYR IVP ×2 (01:16→16:39)
[2018-08-04] MEDS: Normal Saline 1,000 ML 150 ML IV ×3 (01:17→15:43)
[2018-08-04 01:34] LABS: Absolute Lymphocyte Count 2.52 k/cumm (1.2-3.4); Absolute Monocyte Count 0.42 k/cumm (0.11-0.7); Absolute Neutrophil Count 3.99 k/cumm (1.2-6.7)
[2018-08-04 01:35] LABS: Diff Comment Manual Differential; Hypochromasia 1+; Polychromasia Present
[2018-08-04] MEDS: oxyCODONE 5 MG TAB PO ×3 (02:42→19:00)
[2018-08-04] MEDS: Acetaminophen 325 MG TAB 650 MG PO ×2 (02:44→13:01)
--- NOTE | 2018-08-04 08:14 | W.PM.HP.N ---
Date of service: 08/03/18 Time of Service: 23:32 Assessment and Plan (1) Wound dehiscence, : Current visit: Yes Status: Acute 38 yo 8 days postop PCS/ cystotomy repair incision dehiscence admit for IV antibiotics wound care History of Present Illness Chief Complaint: wound drainage Narrative: 38 yo 1P1 8 days post op PCS/cystotomy repair called with complaints of bloody drainage from the middle of her C/section scar she complains the discharge is malodorous, but no pus, no fever, + tenderness She was seen in ER , indeed wound was dehisced above fascia with foul smelling drainage She was admitted for antibiotics and wound care Review of Systems Review of Systems All systems reviewed & are unremarkable except as noted in HPI and below PFSH Medical History Bladder injury, open (Acute) Reactive depression (situational) (Acute) Other social stressor (Acute) Alvarez cerclage present (Acute) Hx of female infertility BMI 45.0-49.9, adult (Chronic) PCOS (polycystic ovarian syndrome) (Chronic) delivery, delivered, current hospitalization (Acute) Hypothyroidism (acquired) (Chronic) Surgical History Status post primary low transverse section (Acute) Colonoscopy - IV Sedation (12/01/15) Family History Mother Essential hypertension Trigeminal neuralgia of right side of face Lupus (systemic lupus erythematosus) Father Diabetes Essential hypertension Social History Smoking/Tobacco Use Status: Never Alcohol Intake: current Alcohol Intake frequency: a few times a month Drug use: Never Substance use type: does not use Adopted: No Foster care: No Household members: spouse, children and other Details: Dariel, and his stepdaughter, Alex Housing: house Number of Children: 1 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 Pets and animals: Yes (2 cats) What is your relationship status?: Panel score (0-1 are the most socially isolated patients): 1 What type of physical activity do you participate in: none Special josef needs: No Agree to transfusion: Yes Seatbelt use: always Helmet use: Yes Drive intox or ride w/intox full service vending driver: No Water heater temp set <120 deg: Yes Working smoke detector in home: Yes Fire extinguisher in home: Yes Carbon monox detector in home: Yes Firearms in home: No Do you feel safe at home: Yes Do you feel safe in your relationship?: Yes Victim of physical abuse: No Victim of emotional abuse: No Victim of sexual abuse: No History History 2 Para Hx # Term Pregnancies 0 Multiple births 0 Hx # Pregnancies Ectopic pregnancies AB induced 0 Hx Number of Living Children 0 AB spontaneous 1 Past Pregnancies Del. Date GA/Weeks # Outcome Route Wgt Sex Labor Lgth Anesthesia Location Prov Complic 08/12/16 No Successful vaginal Male 07/26/18 No Successful 4.111 kg Male 24hrs /AOC Delivery Date: 07/26/18 On 08/02/18 @ 11:18 [facility] for non-reassuring FHR @ 2+ station. Injury to dome of bladder and anterior wall of cervix, 'Alex' Delivery Date: 08/12/16 On 01/18/18 @ 18:11 [facility] IVF . Painless cervical dilatation at 18-6/7 weeks. Membranes prolapsing into the vagina at time of initial presentation. Went on to have an induction of labor delivered a non-viable named Amador Catherine. Meds Home Medications Medication Instructions Recorded Confirmed Type omega-3 fatty acids-fish oil [Fish 1 tab PO HS 03/16/14 08/04/18 History Oil] levothyroxine 100 mcg PO DAILY 30 Days #90 11/23/17 08/04/18 Rx tab-cap Prenatabs Rx 1 tab-cap PO DAILY tab-cap 12/06/17 08/04/18 History cholecalciferol (vitamin D3) 800 unit PO DAILY 12/06/17 08/04/18 History [Vitamin D3] breast pump #1 each 05/17/18 08/02/18 Rx cephalexin 250 mg capsule 250 mg PO BID #20 cap 07/28/18 08/04/18 Rx oxycodone-acetaminophen 1 tab PO Q4H PRN PRN #30 tab 07/30/18 08/04/18 Rx ibuprofen 600 mg tablet 600 mg PO QID PRN #60 tab 08/02/18 08/04/18 Rx ibuprofen 600 mg tablet 600 mg PO TID 08/02/18 08/02/18 History Allergies Allergy/AdvReac Type Severity Reaction Status Date / Time pollen extracts AdvReac Intermediate Unverified 08/04/18 00:37 cilantro Allergy Severe Numb Uncoded 08/04/18 00:37 mouth, hives cigarette smoke AdvReac Intermediate congestion Uncoded 08/04/18 00:37 dust AdvReac Intermediate congestion Uncoded 08/04/18 00:37 Exam Narrative Exam Narrative: appears fatgued but well Const General: cooperative and no acute distress Other: morbid obesity Chest Chest: normal inspection of the chest Other: without difficulties Resp Effort & Inspection: normal respiratory effort Auscultation: clear to auscultation bilaterally Cardio Rate: regular rate Rhythm: regular rhythm Heart Sounds: S1 normal and S2 normal GI Other: central portion incision open, fascia probed and intact malodorous no erythema copious serosanginous drainage Results Labs : 08/04/18 00:58 08/04/18 00:58 Laboratory Results - last 24 hr 08/04/18 08/04/18 00:58 00:58 WBC 7.00 RBC 2.96 L Hgb 8.5 L Hct 26.6 L MCV 89.9 MCH 28.7 MCHC 32.0 RDW 14.5 Plt Count 364 D MPV 8.8 Immature Gran % See Differential Neutrophils % 57.0 Lymphocytes % 36.0 Monocytes % 6.0 Eosinophils % 0.0 Basophils % 0.0 Metamyelocytes % 1.0 Absolute Neutrophils 3.99 Absolute Lymphocytes 2.52 Absolute Monocytes 0.42 Absolute Eosinophils 0.00 Absolute Basophils 0.00 Differential Comment Manual differential RBC Morphology See below Polychromasia Present Hypochromasia 1+ Sodium 141 Potassium 3.6 Chloride 106 Carbon Dioxide 23.5 Anion Gap 11.5 H BUN 13 Creatinine 0.75 Estimated GFR/1.73 m2 >= 60.00 Glucose 111 H Calcium 8.6 Last Vital Signs Temp 36.8 C 08/04/18 02:50 Pulse 77 08/04/18 02:50 Resp 18 08/04/18 02:50 BP 119/72 08/04/18 02:50 Pulse Ox 99 08/04/18 00:31
--- NOTE | 2018-08-04 08:24 | W.PM.PROGNOT ---
Date of Service Date of service: 08/04/18 Time of Service: 08:00 Assessment and Plan (1) Wound dehiscence, : Current visit: Yes Status: Acute wound irrigated and wound packing performed discussed with surgery- they will consult re: need for debridement and possible wound vac continue zosyn (2) Bladder tear, intraoperative: Current visit: No Status: Acute patient has seen Dr Chappell recommendation was to keep sow in 7-10 days she had an appointment with dr Shukri Razo Subjective Interval history since last seen: no complaints fever or chills minimal discomfort incision has noted continuous drainage from wound Exam GI Other: saturated pads removed foul odor incision open 6-7 cm central portion incision probed and fascia intact + clot and drainage Other: sow in place cystotomy repair performed at time of Objective Objective Clinical Data: Abnormal lab results 08/04/18 08/04/18 Range/Units 00:58 00:58 RBC 2.96 L (4.00-5.20) m/cumm Hgb 8.5 L (12.0-15.5) g/dL Hct 26.6 L (36.0-46.0) % Anion Gap 11.5 H (3-11) mmol/L Glucose 111 H (70-100) mg/dL Vital Signs Temperature 36.8 C 08/04/18 02:50 Temperature Source Tympanic 08/04/18 02:50 Pulse 77 08/04/18 02:50 Pulse Rhythm Regular 08/04/18 01:58 Respiratory Rate 18 08/04/18 02:50 Respiratory Effort 08/04/18 01:58 Respiratory Depth Normal 08/04/18 01:58 Respiratory Pattern Normal 08/04/18 01:58 Blood Pressure 119/72 08/04/18 02:50 Blood Pressure Position Sitting 08/04/18 00:31 Pulse Oximetry 99 08/04/18 00:31 Oxygen Delivery Method Room Air 08/04/18 02:50 Oxygen Flow Rate 0 08/04/18 02:50 Pain Level 3 08/04/18 02:44 Intake & Output 08/03/18 08/03/18 08/04/18 11:59 23:59 11:59 Intake Total 716 / 716 Output Total 700 / 700 Balance Weight 140.614 kg Intake: IV 716 / 716 Output: Urine 700 / 700 Other: Urine Color Pale Urine Appearance Clear Urine Odor None Voiding Methods Indwelling Catheter Laboratory Results WBC 7.00 k/cumm (4.4-10.8) 08/04/18 00:58 RBC 2.96 m/cumm (4.00-5.20) L 08/04/18 00:58 Hgb 8.5 g/dL (12.0-15.5) L 08/04/18 00:58 Hct 26.6 % (36.0-46.0) L 08/04/18 00:58 MCV 89.9 fL (80-95) 08/04/18 00:58 MCH 28.7 pg (27.0-33.0) 08/04/18 00:58 MCHC 32.0 g/dL (32.0-36.0) 08/04/18 00:58 RDW 14.5 % (11.7-14.6) 08/04/18 00:58 Plt Count 364 x1000/uL (130-400) D 08/04/18 00:58 MPV 8.8 fL (8.0-11.0) 08/04/18 00:58 Immature Gran % See Differential 08/04/18 00:58 Neutrophils % 57.0 08/04/18 00:58 Lymphocytes % 36.0 08/04/18 00:58 Monocytes % 6.0 08/04/18 00:58 Eosinophils % 0.0 08/04/18 00:58 Basophils % 0.0 08/04/18 00:58 Metamyelocytes % 1.0 % 08/04/18 00:58 Absolute Neutrophils 3.99 k/cumm (1.2-6.7) 08/04/18 00:58 Absolute Lymphocytes 2.52 k/cumm (1.2-3.4) 08/04/18 00:58 Absolute Monocytes 0.42 k/cumm (0.11-0.7) 08/04/18 00:58 Absolute Eosinophils 0.00 k/cumm (0.0-0.7) 08/04/18 00:58 Absolute Basophils 0.00 k/cumm (0.0-0.2) 08/04/18 00:58 Differential Comment Manual differential 08/04/18 00:58 RBC Morphology See below 04/26/19 00:58 Polychromasia Present 08/04/18 00:58 Hypochromasia 1+ 08/04/18 00:58 Sodium 141 mmol/L (136-145) 08/04/18 00:58 Potassium 3.6 mmol/L (3.5-5.1) 08/04/18 00:58 Chloride 106 mmol/L (98-107) 08/04/18 00:58 Carbon Dioxide 23.5 mmol/L (21.0-32.0) 08/04/18 00:58 Anion Gap 11.5 mmol/L (3-11) H 08/04/18 00:58 BUN 13 mg/dL (7-18) 08/04/18 00:58 Creatinine 0.75 mg/dL (0.55-1.02) 08/04/18 00:58 Estimated GFR/1.73 m2 >= 60.00 (mL/min/1.73m2) 08/04/18 00:58 Glucose 111 mg/dL (70-100) H 08/04/18 00:58 Calcium 8.6 mg/dL (8.5-10.1) 08/04/18 00:58
--- NOTE | 2018-08-04 08:56 | SCONE_ITS ---
Date of service: 08/04/18 Time of Service: 08:56 Assessment and Plan (1) Wound dehiscence, : Current visit: Yes Status: Acute will take to the OR for debirdement and wound exploration to make sure fascia is intact zosyn home wound vac and home RN for changes supportive care risks: Informed consent is obtained for the procedural (explained in simple layman's terms that the pt. and/or family could understand) explaining risks vs benefits and alternatives to the procedure and consequences if we do not do the procedure. Risks include but are not limited to: bleeding, infections, pneumonia, blood clots/DVT/PE, anesthesia (aspiration, damage to teeth/airway/ND/CVA//prolonged mechanical ventilation/PTX/IV infections), damage to bowel, bladder. Wound infections requiring further surgery. Scarring and disfigurement. further rec to follow pd findings in Sx (2) Bladder injury, open: Current visit: No Status: Acute (3) Status post primary low transverse section: Current visit: No Status: Acute History of Present Illness Narrative: Pt had a C section done 07/26. She had a bladder injury which was repaired. Gross is still in place. Cl yellow urine. Ruben were removed on 08/02. on 08/04 wound fell apart. High drainage. Does not look grossly infected. no hematoma. prob just seroma. There is some non viable tissue that should be removed to aid in closer and prevent infection. No DM. non smoker. Consults Consult date: 08/04/18 Requesting physician: Maureen Weller Review of Systems Review of Systems All systems reviewed & are unremarkable except as noted in HPI and below Constitutional Reports as per HPI, Reports system reviewed and no additional complaints, except as docu, Denies anorexia, Denies chills, Denies difficulty sleeping, Denies fatigue, Denies headache(s), Denies lethargy, Denies malaise, Denies poor appetite, Denies weakness, Denies weight gain and Denies weight loss Eyes Reports as per HPI, Reports system reviewed and no additional complaints, except as docu and Denies change in vision ENT Reports system reviewed and no additional complaints, except as docu, Reports as per HPI, Denies change in voice, Denies dental pain, Denies dysphagia, Denies dizziness, Denies facial pain, Denies headache(s) and Denies odynophagia Cardiovascular Reports as per HPI, Reports system reviewed and no additional complaints, except as docu, Denies chest pain, Denies chest pain with activity, Denies syncope, Denies leg edema and Denies dyspnea Respiratory Reports as per HPI, Reports system reviewed and no additional complaints, except as docu, Denies chest congestion, Denies cough, Denies pain with cough and Denies dyspnea Gastrointestinal Reports as per HPI, Reports system reviewed and no additional complaints, except as docu, Denies abdominal pain, Denies bloating, Denies change in bowel habits, Denies change in stool character, Denies constipation, Denies cramping, Denies dysphagia, Denies early satiety, Denies heartburn, Denies diarrhea, Denies nausea, Denies odynophagia and Denies vomiting Musculoskeletal Reports system reviewed and no additional complaints, except as docu, Reports as per HPI, Denies abnormal gait, Denies arthralgias and Denies muscle weakness Integumentary/Breasts Reports system reviewed and no additional complaints, except as docu, Reports as per HPI, Denies changing lesions, Denies new lesions and Denies jaundice Comments: incision has opened up. High drainage. surrounding tissue intact- no R/D/S. + pain. serous drainage. no bleeding or hematoma about 10% non via ble tissue. does not appear to be severe infectoin Neurologic Reports system reviewed and no additional complaints, except as docu, Reports as per HPI, Denies abnormal speech, Denies abnormal gait, Denies dizziness, Denies syncope, Denies headache(s), Denies memory loss and Denies weakness Psychiatric Reports system reviewed and no additional complaints, except as docu, Reports as per HPI, Denies change in appetite and Denies memory loss Endocrine Denies fatigue, Denies polydipsia and Denies polyuria Hematologic/Lymphatic Reports system reviewed and no additional complaints, except as docu, Denies easy bleeding and Denies easy bruising Allergic/Immunologic Denies system reviewed and no additional complaints, except as docu, Reports as per HPI and Denies urticaria [facility] Medical History Bladder injury, open (Acute) Reactive depression (situational) (Acute) Other social stressor (Acute) Alvarez cerclage present (Acute) Hx of female infertility BMI 45.0-49.9, adult (Chronic) PCOS (polycystic ovarian syndrome) (Chronic) delivery, delivered, current hospitalization (Acute) Hypothyroidism (acquired) (Chronic) Surgical History Status post primary low transverse section (Acute) Colonoscopy - IV Sedation (12/01/15) Family History Mother Essential hypertension Trigeminal neuralgia of right side of face Lupus (systemic lupus erythematosus) Father Diabetes Essential hypertension Social History Smoking/Tobacco Use Status: Never Alcohol Intake: current Alcohol Intake frequency: a few times a month Drug use: Never Substance use type: does not use Adopted: No Foster care: No Household members: spouse, children and other Details: Dariel, and his stepdaughter, Alex Housing: house Number of Children: 1 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 her contract end of 2018 Pets and animals: Yes (2 cats) What is your relationship status?: Panel score (0-1 are the most socially isolated patients): 1 What type of physical activity do you participate in: none Special josef needs: No Agree to transfusion: Yes Seatbelt use: always Helmet use: Yes Drive intox or ride w/intox water truck driver: No Water heater temp set <120 deg: Yes Working smoke detector in home: Yes Fire extinguisher in home: Yes Carbon monox detector in home: Yes Firearms in home: No Do you feel safe at home: Yes Do you feel safe in your relationship?: Yes Victim of physical abuse: No Victim of emotional abuse: No Victim of sexual abuse: No History History 2 Para Hx # Term Pregnancies 0 Multiple births 0 Hx # Pregnancies Ectopic pregnancies AB induced 0 Hx Number of Living Children 0 AB spontaneous 1 Past Pregnancies Del. Date GA/Weeks # Outcome Route Wgt Sex Labor Lgth Anesthesia Location Prov Complic 08/12/16 No Successful vaginal Male 07/26/18 No Successful 4.111 kg Male 24hrs KP/AOC Delivery Date: 07/26/18 On 08/02/18 @ 11:18 [facility] for non-reassuring FHR @ 2+ station. Injury to dome of bladder and anterior wall of cervix, 'Alex' Delivery Date: 08/12/16 On 01/18/18 @ 18:11 [facility] Fermin IVF . Painless cervical dilatation at 18-6/7 weeks. Membranes prolapsing into the vagina at time of initial presentation. Went on to have an induction of labor delivered a non-viable named Amador Catherine. Exam Const General: cooperative, healthy appearing, comfortable, no acute distress, well developed and well groomed Nutritional Appearance: average body habitus and well nourished Orientation: alert, awake and oriented x3 HENMT Head: normal to inspection, normocephalic and atraumatic Ears: hearing grossly normal bilaterally and external ears normal General nose exam: external nose normal Face and sinus: normal facial exam and sinuses nontender Mouth: oral mucosae normal, lip normal, tongue normal and moist mucous membranes Teeth and gingiva: dentition normal Eyes General: appearance normal, both eyes and all related structures Conjunctivae: conjunctivae normal Sclera: sclerae normal Pupils: PERRL Neck Neck: normal visual inspection and full ROM Chest Chest: normal inspection of the chest Resp Effort & Inspection: normal respiratory effort, able to speak in complete sentences, no cough, no nasal flaring, not tachypneic and no use of accessory muscles Auscultation: clear to auscultation bilaterally, no rales, no rhonchi and no wheezes Cardio Jugular venous pressure: no JVD Rate: regular rate Rhythm: regular rhythm GI Inspection: normal to inspection, no edema and non-distended Palpation: soft, no masses, nontender and No ascites Auscultation: normal bowel sounds Skin General skin exam: no rashes or lesions noted Other: incision has opened up. 10% non viable tissue- which should be removed. sourrounding tissue is c/d/i. no redness/swelling. high output serous drainage. fascia appears intact. high pain Neuro General: alert, oriented x3, oriented, gait normal, moves all extremities, no focal motor deficits and CN's II-XI intact bilaterally Cognition: normal cognition Speech: speech normal Gait: normal gait Motor: muscle tone normal throughout Extrem General: normal to inspection, full ROM and no clubbing, cyanosis or edema Psych Appearance: grossly normal and well kempt Mental Status: mental status grossly normal Speech and Movement: speech and movement normal Affect: normal affect Results Last Vital Signs Temp 36.8 C 08/04/18 02:50 Pulse 77 08/04/18 02:50 Resp 18 08/04/18 02:50 BP 119/72 08/04/18 02:50 Pulse Ox 99 08/04/18 00:31 Labs : 08/04/18 00:58 08/04/18 00:58 Laboratory Results - last 24 hr 08/04/18 08/04/18 00:58 00:58 WBC 7.00 RBC 2.96 L Hgb 8.5 L Hct 26.6 L MCV 89.9 MCH 28.7 MCHC 32.0 RDW 14.5 Plt Count 364 D MPV 8.8 Immature Gran % See Differential Neutrophils % 57.0 Lymphocytes % 36.0 Monocytes % 6.0 Eosinophils % 0.0 Basophils % 0.0 Metamyelocytes % 1.0 Absolute Neutrophils 3.99 Absolute Lymphocytes 2.52 Absolute Monocytes 0.42 Absolute Eosinophils 0.00 Absolute Basophils 0.00 Differential Comment Manual differential RBC Morphology See below Polychromasia Present Hypochromasia 1+ Sodium 141 Potassium 3.6 Chloride 106 Carbon Dioxide 23.5 Anion Gap 11.5 H BUN 13 Creatinine 0.75 Estimated GFR/1.73 m2 >= 60.00 Glucose 111 H Calcium 8.6
--- NOTE | 2018-08-04 09:24 | PDOC.CMPRO ---
Care Management Progress Note CM rec'd CM consult from Dr. Conde. CM spoke with Theodore OB RN who reported Enedelia would be brought to OR for wound deheinscence S/P C section and would require wound vac upon discharge as well as [facility] home health orders for VAC changes. CM spoke with Nolvia and Concha of Med/Surg regarding process and procedure. Nolvia reported [facility] unit was in house and could be coordinated for home use for Enedelia. Nolvia followed up with OB and MD regarding needs. Late in the day, Dr. Conde reported wound vac was now being coordinated through [facility]. Unsure of coordination efforts, CM sent new orders signed by Dr. Conde and patient information to [place]. [facility] called and reported no coordination could take place on the weekend as it was too late in the day. 08/05/18: 0830 CM rec'd VM from [facility] stating inability to connect with Enedelia's insurance yesterday as her insurance company closed at 1630. As well they re-iterated no weekend coordination available. 1000 CM rec'd call from Dr. Weller asking if wound vac and VNA were all set for the weekend; CM provided information. CM relayed that Dr. Weller could page is consultant Roller Bearing Inspector for request to send [facility] wound vac home with patient. CM explained that VNA plans to do dressing change for Crisitin on Tuesday and will follow orders as prescribed. CM agreed to support Dr. Weller in ordering VNA supports as needed. Dr. Weller reported OB did receive order forms yesterday, reports they were not completed and now can not be found. [address] Conde and requested she connect with Dr. Weller. CM provided same information as above; no guarantee of wound vac delivery for Tuesday; VNA plans to do dressing change for Crisitin on Tuesday. CM will continue to follow and support coordination.
--- NOTE | 2018-08-04 09:27 | CMPROGNOTE_ITS ---
Care Management Progress Note CM rec'd CM consult from Dr. Conde. CM spoke with Theodore OB RN who reported Enedelia would be brought to OR for wound deheinscence S/P C section and would require wound vac upon discharge as well as [facility] home health orders for VAC changes. CM spoke with Nolvia and Concha of Med/Surg regarding process and procedure. Nolvia reported [facility] unit was in house and could be coordinated for home use for Enedelia. Nolvia followed up with OB and MD regarding needs. Late in the day, Dr. Conde reported wound vac was now being coordinated through [facility]. Unsure of coordination efforts, CM sent new orders signed by Dr. Conde and patient information to [place]. [facility] called and reported no coordination could take place on the weekend as it was too late in the day. 08/05/18: 0830 CM rec'd VM from [facility] stating inability to connect with Enedelia's insurance yesterday as her insurance company closed at 1630. As well they re- iterated no weekend coordination available. 1000 CM rec'd call from Dr. Weller asking if wound vac and VNA were all set for the weekend; CM provided information. CM relayed that Dr. Weller could page telecommunications manager [employer] Or Condenser Press Operator for request to send [facility] wound vac home with patient. CM explained that VNA plans to do dressing change for Crisitin on Tuesday and will follow orders as prescribed. CM agreed to support Dr. Weller in ordering VNA supports as needed. Dr. Weller reported OB did receive order forms yesterday, reports they were not completed and now can not be found. [address] Conde and requested she connect with Dr. Weller. CM provided same information as above; no guarantee of wound vac delivery for Tuesday; VNA plans to do dressing change for Crisitin on Tuesday. CM will continue to follow and support coordination.
--- NOTE | 2018-08-04 14:35 | NUR.NOTE ---
1415- To or via W/C, IV of NS at 150cc/hr infusing. 1400 Zosyn taken to OR with patient. Gross cath in place. Report given to OR staff.Nursing Note:
--- NOTE | 2018-08-04 15:18 | W.PM.OP ---
Date of service: 08/04/18 Time of Service: 15:20 Operative Note DATE OF PROCEDURE: 08/04/18 PRE-OP DIAGNOSIS: wound dehiensces POST-OP DIAGNOSIS: same PROCEDURE: wound exploration Debridement wound vac placement SURGEON: Fely Conde ASSISTING SURGEON: Maureen Weller ANESTHESIA: GETA ESTIMATED BLOOD LOSS: 5 PATHOLOGY: none sent Patient was transported to: PACU Procedure Description: dictated. cultures were done in ED on 08/03. pt on abx at this time
--- NOTE | 2018-08-04 16:12 | PGE_ITS ---
Date of Service Date of service: 08/04/18 Time of Service: 16:10 Assessment and Plan (1) Wound dehiscence, : Current visit: Yes Status: Acute Wound Culture Preliminary 08/04/18- 1245 Day 1 Result NO GROWTH 24 HOURS Gram Stain Final 08/04/18-0150 GRAM STAIN Rare White Blood Cells Moderate Gram Positive Cocci Rare Gram Negative Yan -on Zosyn albumin- pd iron studies- pd hgb 8.5 wound vac ordered from [facility]/paper work completed and referral put in for homecare (can see pt on tuesday). [employer] wont' have VAC until tuesday. routine post op care hold lovenox scd (2) Bladder injury, open: Current visit: Yes Status: Acute maintain sow (3) Status post primary low transverse section: Current visit: Yes Status: Acute as above Subjective Interval history since last seen: seen post Op. c/o pain. no bleeding. no sob. VSS Exam Const General: cooperative, healthy appearing, comfortable, no acute distress, well developed and well groomed Nutritional Appearance: average body habitus and well nourished Orientation: alert, awake and oriented x3 HENMT Head: normal to inspection, normocephalic and atraumatic Ears: hearing grossly normal bilaterally and external ears normal General nose exam: external nose normal Face and sinus: normal facial exam and sinuses nontender Mouth: oral mucosae normal, lip normal, tongue normal and moist mucous membranes Teeth and gingiva: dentition normal Eyes General: appearance normal, both eyes and all related structures Conjunctivae: conjunctivae normal Sclera: sclerae normal Pupils: PERRL Neck Neck: normal visual inspection and full ROM Chest Chest: normal inspection of the chest Resp Effort & Inspection: normal respiratory effort, able to speak in complete sentences, no cough, no nasal flaring, not tachypneic and no use of accessory muscles Auscultation: clear to auscultation bilaterally, no rales, no rhonchi and no wheezes Cardio Jugular venous pressure: no JVD Rate: regular rate Rhythm: regular rhythm GI Other: wound vac in place. Other: catheter in place. cl yellow urine . tomorrow is POD #10. Skin General skin exam: no rashes or lesions noted Trauma: no lacerations or abrasions Neuro General: alert, oriented x3, oriented, gait normal, moves all extremities, no focal motor deficits and CN's II-XI intact bilaterally Cognition: normal cognition Speech: speech normal Gait: normal gait Motor: muscle tone normal throughout Extrem General: normal to inspection, full ROM and no clubbing, cyanosis or edema Psych Appearance: grossly normal and well kempt Mental Status: mental status grossly normal Speech and Movement: speech and movement normal Affect: normal affect Objective Objective Clinical Data: Abnormal lab results 08/04/18 08/04/18 Range/Units 00:58 00:58 RBC 2.96 L (4.00-5.20) m/cumm Hgb 8.5 L (12.0-15.5) g/dL Hct 26.6 L (36.0-46.0) % Anion Gap 11.5 H (3-11) mmol/L Glucose 111 H (70-100) mg/dL Vital Signs Temperature 36.7 C 08/04/18 09:22 Temperature Source Oral 08/04/18 09:22 Pulse 78 08/04/18 09:22 Pulse Rhythm Regular 08/04/18 09:22 Respiratory Rate 14 08/04/18 09:22 Respiratory Effort 08/04/18 09:22 Respiratory Depth Normal 08/04/18 09:22 Respiratory Pattern Normal 08/04/18 09:22 Blood Pressure 117/77 08/04/18 09:22 Blood Pressure Position Sitting 08/04/18 00:31 Pulse Oximetry 97 08/04/18 09:22 Oxygen Delivery Method Room Air 08/04/18 09:22 Oxygen Flow Rate 0 08/04/18 09:22 Pain Level 4 08/04/18 13:01 Intake & Output 08/03/18 08/04/18 08/04/18 23:59 11:59 23:59 Intake Total 1715 150 / 1866 Output Total 700 / 2150 1450 / 2150 Balance 1016 / -284 -1300 / -284 Weight 140.614 kg Intake: IV 171 / 1865 150 / 1866 Output: Urine 700 / 2150 1450 / 2150 Other: Urine Color Pale Yellow Urine Appearance Clear Clear Urine Odor None Voiding Methods Indwelling Catheter Indwelling Catheter Laboratory Results WBC 7.00 k/cumm (4.4-10.8) 08/04/18 00:58 RBC 2.96 m/cumm (4.00-5.20) L 08/04/18 00:58 Hgb 8.5 g/dL (12.0-15.5) L 08/04/18 00:58 Hct 26.6 % (36.0-46.0) L 08/04/18 00:58 MCV 89.9 fL (80-95) 08/04/18 00:58 MCH 28.7 pg (27.0-33.0) 08/04/18 00:58 MCHC 32.0 g/dL (32.0-36.0) 08/04/18 00:58 RDW 14.5 % (11.7-14.6) 08/04/18 00:58 Plt Count 364 x1000/uL (130-400) D 08/04/18 00:58 MPV 8.8 fL (8.0-11.0) 08/04/18 00:58 Immature Gran % See Differential 08/04/18 00:58 Neutrophils % 57.0 08/04/18 00:58 Lymphocytes % 36.0 08/04/18 00:58 Monocytes % 6.0 08/04/18 00:58 Eosinophils % 0.0 08/04/18 00:58 Basophils % 0.0 08/04/18 00:58 Metamyelocytes % 1.0 % 08/04/18 00:58 Absolute Neutrophils 3.99 k/cumm (1.2-6.7) 08/04/18 00:58 Absolute Lymphocytes 2.52 k/cumm (1.2-3.4) 08/04/18 00:58 Absolute Monocytes 0.42 k/cumm (0.11-0.7) 08/04/18 00:58 Absolute Eosinophils 0.00 k/cumm (0.0-0.7) 08/04/18 00:58 Absolute Basophils 0.00 k/cumm (0.0-0.2) 08/04/18 00:58 Differential Comment Manual differential 08/04/18 00:58 RBC Morphology See below 08/04/18 00:58 Polychromasia Present 08/04/18 00:58 Hypochromasia 1+ 08/04/18 00:58 Sodium 141 mmol/L (136-145) 08/04/18 00:58 Potassium 3.6 mmol/L (3.5-5.1) 08/04/18 00:58 Chloride 106 mmol/L (98-107) 08/04/18 00:58 Carbon Dioxide 23.5 mmol/L (21.0-32.0) 08/04/18 00:58 Anion Gap 11.5 mmol/L (3-11) H 08/04/18 00:58 BUN 13 mg/dL (7-18) 08/04/18 00:58 Creatinine 0.75 mg/dL (0.55-1.02) 08/04/18 00:58 Estimated GFR/1.73 m2 >= 60.00 (mL/min/1.73m2) 08/04/18 00:58 Glucose 111 mg/dL (70-100) H 08/04/18 00:58 Calcium 8.6 mg/dL (8.5-10.1) 08/04/18 00:58
[2018-08-04] MEDS: MORPHine 2 MG/ML SYR IM (16:38)
--- NOTE | 2018-08-04 17:31 | NUR.NOTE ---
1520 - pt returned to Center via stretcher. Drowsy but oriented, RR and Sp02 WNL. Pt transferred herself to bed and report taken by Richard Glaser and Steffany JARQUIN from OR team. Nursing Note:
[2018-08-04] MEDS: Ibuprofen 800 MG TAB PO (18:59)
[2018-08-04] MEDS: Psyllium PKT 1 EACH PO (20:07)
[2018-08-05] MEDS: Normal Saline 1,000 ML 150 ML IV (00:23)
[2018-08-05 04:00] VITALS: BP 126/80; PULSE 76; RESP 18; TEMP 36.6; O2SAT 96
[2018-08-05] MEDS: Ibuprofen 800 MG TAB PO ×3 (04:09→18:41)
--- NOTE | 2018-08-05 04:15 | NUR.NOTE ---
0330 Pt up to bathroom with assist. Passed flatus, no bm. Akila care done, brushed teeth, washed with washcloth, new gown on. Tolerated very well with minimal pain. Nursing Note:
[2018-08-05 07:43] LABS: HCT 25.1 % (36.0-46.0); HGB 7.9 g/dL (12.0-15.5)
[2018-08-05 07:57] LABS: Albumin 2.1 g/dL (3.4-5.0); C-Reactive Protein 2.68 mg/dL (0.0-0.3)
[2018-08-05 08:00] VITALS: BP 132/91; PULSE 80; RESP 16; TEMP 36.6; O2SAT 98
[2018-08-05 08:16] LABS: Iron 30 ug/dL (50-175); Total Iron Binding Capacity 305 ug/dL (250-450); Transferrin Sat 10 % (15-50)
[2018-08-05] MEDS: PIPERACILLIN/TAZO 3.375 GM in Normal Saline 50 ML IVPB ×2 (08:51→13:58)
[2018-08-05] MEDS: Acetaminophen 325 MG TAB 650 MG PO (09:49)
--- NOTE | 2018-08-05 10:04 | W.PM.PROGNOT ---
Date of Service Date of service: 08/05/18 Time of Service: 10:04 Assessment and Plan (1) Wound dehiscence, : Current visit: Yes Status: Acute wound vac in place home health is arranged for Tuesday and home wound vac not available until Tuesday continue IV antibx for now switch to po upon discharge (2) Bladder injury, open: Current visit: Yes Status: Acute POD#10 PCS/ Cystotomy repair plan trial of void today (3) Anemia: Current visit: Yes Status: Chronic continue vitamin and iron supplementation Subjective Interval history since last seen: feels well pain under control with Motrin no fever or chills Exam GI Other: wound vac in place no problems with seal no evidence erythema preliminary wound culture gram positive laura Objective Objective Clinical Data: Abnormal lab results 08/05/18 08/05/18 08/05/18 Range/Units 07:30 07:30 07:30 Hgb 7.9 L (12.0-15.5) g/dL Hct 25.1 L (36.0-46.0) % Iron 30 L (50-175) ug/dL Transferrin % Sat 10 L (15-50) % C-Reactive Protein 2.68 H (0.0-0.3) mg/dL Albumin 2.1 L (3.4-5.0) g/dL Vital Signs Temperature 36.6 C 08/05/18 04:00 Temperature Source Oral 08/05/18 04:00 Pulse 76 08/05/18 04:00 Pulse Rhythm Regular 08/04/18 23:11 Respiratory Rate 18 08/05/18 04:00 Respiratory Effort Non-Labored 08/04/18 23:11 Respiratory Depth Normal 08/04/18 23:11 Respiratory Pattern Normal 08/04/18 23:11 Blood Pressure 126/80 08/05/18 04:00 Blood Pressure Position Sitting 08/04/18 00:31 Pulse Oximetry 96 08/05/18 04:00 Oxygen Delivery Method Room Air 08/05/18 04:00 Oxygen Flow Rate 0 08/05/18 04:00 Pain Level 3 08/05/18 09:49 Intake & Output 08/04/18 08/04/18 08/05/18 11:59 23:59 11:59 Intake Total 1716 / 2156 440 / 2156 1050 / 1050 Output Total 700 / 3575 2875 / 3575 1300 / 1300 Balance 1016 / -1419 -2435 / -1419 -250 / -250 Weight 140.614 kg Intake: IV 1716 / 1916 200 / 1916 1050 / 1050 Oral 240 / 240 Output: Urine 700 / 3575 2875 / 3575 1300 / 1300 Other: Urine Color Pale Yellow Yellow Urine Appearance Clear Clear Clear Urine Odor None Normal Normal Voiding Methods Indwelling Catheter Indwelling Catheter Indwelling Catheter Laboratory Results WBC 7.00 k/cumm (4.4-10.8) 08/04/18 00:58 RBC 2.96 m/cumm (4.00-5.20) L 08/04/18 00:58 Hgb 7.9 g/dL (12.0-15.5) L 08/05/18 07:30 Hct 25.1 % (36.0-46.0) L 08/05/18 07:30 MCV 89.9 fL (80-95) 08/04/18 00:58 MCH 28.7 pg (27.0-33.0) 08/04/18 00:58 MCHC 32.0 g/dL (32.0-36.0) 08/04/18 00:58 RDW 14.5 % (11.7-14.6) 08/04/18 00:58 Plt Count 364 x1000/uL (130-400) D 08/04/18 00:58 MPV 8.8 fL (8.0-11.0) 08/04/18 00:58 Immature Gran % See Differential 08/04/18 00:58 Neutrophils % 57.0 08/04/18 00:58 Lymphocytes % 36.0 08/04/18 00:58 Monocytes % 6.0 08/04/18 00:58 Eosinophils % 0.0 08/04/18 00:58 Basophils % 0.0 08/04/18 00:58 Metamyelocytes % 1.0 % 08/04/18 00:58 Absolute Neutrophils 3.99 k/cumm (1.2-6.7) 08/04/18 00:58 Absolute Lymphocytes 2.52 k/cumm (1.2-3.4) 08/04/18 00:58 Absolute Monocytes 0.42 k/cumm (0.11-0.7) 08/04/18 00:58 Absolute Eosinophils 0.00 k/cumm (0.0-0.7) 08/04/18 00:58 Absolute Basophils 0.00 k/cumm (0.0-0.2) 08/04/18 00:58 Differential Comment Manual differential 08/04/18 00:58 RBC Morphology See below 08/04/18 00:58 Polychromasia Present 08/04/18 00:58 Hypochromasia 1+ 08/04/18 00:58 Sodium 141 mmol/L (136-145) 08/04/18 00:58 Potassium 3.6 mmol/L (3.5-5.1) 08/04/18 00:58 Chloride 106 mmol/L (98-107) 08/04/18 00:58 Carbon Dioxide 23.5 mmol/L (21.0-32.0) 08/04/18 00:58 Anion Gap 11.5 mmol/L (3-11) H 08/04/18 00:58 BUN 13 mg/dL (7-18) 08/04/18 00:58 Creatinine 0.75 mg/dL (0.55-1.02) 08/04/18 00:58 Estimated GFR/1.73 m2 >= 60.00 (mL/min/1.73m2) 08/04/18 00:58 Glucose 111 mg/dL (70-100) H 08/04/18 00:58 Calcium 8.6 mg/dL (8.5-10.1) 08/04/18 00:58 Iron 30 ug/dL (50-175) L 08/05/18 07:30 TIBC 305 ug/dL (250-450) 08/05/18 07:30 Transferrin % Sat 10 % (15-50) L 08/05/18 07:30 C-Reactive Protein 2.68 mg/dL (0.0-0.3) H 08/05/18 07:30 Albumin 2.1 g/dL (3.4-5.0) L 08/05/18 07:30
[2018-08-05 15:40] VITALS: BP 129/74; PULSE 80; RESP 16; TEMP 36.8; O2SAT 96
--- NOTE | 2018-08-05 16:26 | W.PM.PROGNOT ---
Date of Service Date of service: 08/05/18 Time of Service: 16:27 Assessment and Plan (1) Anemia: Current visit: Yes Status: Chronic -IV Iron. will stop oral Fe (2) Wound dehiscence, : Current visit: Yes Status: Acute -wound Vac in place and functioning well. Paperwork completed and awaiting on delivery -cultures reviewed. NO growth after 24 hrs and minimal gram + on G. Stain. given the diarrhea- I thinking stopping abx and checking for C. Diff prudent. Will start probiotics as well. Pt has been eating yogurt. Again, don't feel that this was infectious process- rather non healing secondary to seroma (secondary to obesity). No sign of fascial dehiscence -low protein. high protein diet. Pt will start on arginine supplements- pt can take own from home. -repeat labs in am -pain management -cont supportive care (3) Bladder injury, open: Current visit: Yes Status: Acute sow is out pt is voiding w/ out problems no further residuals Subjective Interval history since last seen: Pt is doing well. no headaches. No CP or SOB. no productive cough. no dysuria. no leg pain or swelling. pt had sow removed earlier today and is able to urinate fine. No pain or burning. unable to do Bladder scan b/c of wound vac causing obstruction. post void catheterization after the initial void is 150cc. however pt does feel like her bladder is completely emptying. She voided 350cc Mk yellow urine while I was in her room. She is having minimal wound pain- it is controlled by non narcotic meds. She is up walking. She is having diarrhea/no bleeding/no colon cramping. She is having high fluid output from wound vac. serous and not bleeding (canister was changed already). She is tolerating a regular diet. She is up walking. She is bonding/taking care of the baby. Mom is very helpful/involved w/ care adn will be available to help at home on d/c. She is having alot of diarrhea and the cultures are neg- so I am going to stop the diarrhea and check a C. diff. Dr. Weller and I had decided to continue it earlier- but I think b/c of the diarrhea- we should stop it. Exam Const General: cooperative, healthy appearing, comfortable, no acute distress, well developed and well groomed Nutritional Appearance: average body habitus and well nourished Orientation: alert, awake and oriented x3 [facility] Head: normal to inspection, normocephalic and atraumatic Ears: hearing grossly normal bilaterally and external ears normal General nose exam: external nose normal Face and sinus: normal facial exam and sinuses nontender Mouth: oral mucosae normal, lip normal, tongue normal and moist mucous membranes Teeth and gingiva: dentition normal Eyes General: appearance normal, both eyes and all related structures Conjunctivae: conjunctivae normal Sclera: sclerae normal Pupils: PERRL Neck Neck: normal visual inspection and full ROM Chest Chest: normal inspection of the chest Resp Effort & Inspection: normal respiratory effort, able to speak in complete sentences, no cough, no nasal flaring, not tachypneic and no use of accessory muscles Auscultation: clear to auscultation bilaterally, no rales, no rhonchi and no wheezes Cardio Jugular venous pressure: no JVD Rate: regular rate Rhythm: regular rhythm GI Inspection: edema (still present- but has gone down ), non-distended, incision (wound vac in place and functioning- no air leak.) and large pannus Palpation: soft, no masses, tender and No ascites Auscultation: normal bowel sounds Other: minmal pain. + diarrhea. liquid -(observed) Other: not done Skin General skin exam: no rashes or lesions noted Trauma: no lacerations or abrasions Neuro General: alert, oriented x3, oriented, gait normal, moves all extremities, no focal motor deficits and CN's II-XI intact bilaterally Cognition: normal cognition Speech: speech normal Gait: normal gait Motor: muscle tone normal throughout Extrem General: normal to inspection, full ROM and no clubbing, cyanosis or edema Psych Appearance: grossly normal and well kempt Mental Status: mental status grossly normal Speech and Movement: speech and movement normal Affect: normal affect Objective Objective Clinical Data: Abnormal lab results 08/05/18 08/05/18 08/05/18 Range/Units 07:30 07:30 07:30 Hgb 7.9 L (12.0-15.5) g/dL Hct 25.1 L (36.0-46.0) % Iron 30 L (50-175) ug/dL Transferrin % Sat 10 L (15-50) % C-Reactive Protein 2.68 H (0.0-0.3) mg/dL Albumin 2.1 L (3.4-5.0) g/dL Vital Signs Temperature 36.8 C 08/05/18 15:40 Temperature Source Oral 08/05/18 15:40 Pulse 80 08/05/18 15:40 Pulse Rhythm Regular 08/05/18 15:37 Respiratory Rate 16 08/05/18 15:40 Respiratory Effort 08/05/18 15:37 Respiratory Depth Normal 08/05/18 15:37 Respiratory Pattern Normal 08/05/18 15:37 Blood Pressure 129/74 08/05/18 15:40 Blood Pressure Position Sitting 08/04/18 00:31 Pulse Oximetry 96 08/05/18 15:40 Oxygen Delivery Method Room Air 08/05/18 15:40 Oxygen Flow Rate 0 08/05/18 15:40 Pain Level 2 08/05/18 15:40 Intake & Output 08/04/18 08/05/18 08/05/18 23:59 11:59 23:59 Intake Total 440 / 2156 1050 / 2100 1050 / 2100 Output Total 2875 / 3575 1300 / 2900 1600 / 2900 Balance -2435 / -1419 -250 / -800 -550 / -800 Intake: IV 200 / 1916 1050 / 2100 1050 / 2100 Oral 240 / 240 Output: Urine 2875 / 3575 1300 / 2900 1600 / 2900 Other: Urine Color Yellow Yellow Pale Urine Appearance Clear Clear Clear Urine Odor Normal Normal Strong Comment 1st void after sow removal. Voiding Methods Indwelling Catheter Indwelling Catheter Toilet Laboratory Results WBC 7.00 k/cumm (4.4-10.8) 08/04/18 00:58 RBC 2.96 m/cumm (4.00-5.20) L 08/04/18 00:58 Hgb 7.9 g/dL (12.0-15.5) L 08/05/18 07:30 Hct 25.1 % (36.0-46.0) L 08/05/18 07:30 MCV 89.9 fL (80-95) 08/04/18 00:58 MCH 28.7 pg (27.0-33.0) 08/04/18 00:58 MCHC 32.0 g/dL (32.0-36.0) 08/04/18 00:58 RDW 14.5 % (11.7-14.6) 08/04/18 00:58 Plt Count 364 x1000/uL (130-400) D 08/04/18 00:58 MPV 8.8 fL (8.0-11.0) 08/04/18 00:58 Immature Gran % See Differential 08/04/18 00:58 Neutrophils % 57.0 08/04/18 00:58 Lymphocytes % 36.0 08/04/18 00:58 Monocytes % 6.0 04 00:58 Eosinophils % 0.0 08/04/18 00:58 Basophils % 0.0 08/04/18 00:58 Metamyelocytes % 1.0 % 08/04/18 00:58 Absolute Neutrophils 3.99 k/cumm (1.2-6.7) 08/04/18 00:58 Absolute Lymphocytes 2.52 k/cumm (1.2-3.4) 08/04/18 00:58 Absolute Monocytes 0.42 k/cumm (0.11-0.7) 08/04/18 00:58 Absolute Eosinophils 0.00 k/cumm (0.0-0.7) 08/04/18 00:58 Absolute Basophils 0.00 k/cumm (0.0-0.2) 08/04/18 00:58 Differential Comment Manual differential 08/04/18 00:58 RBC Morphology See below 08/04/18 00:58 Polychromasia Present 08/04/18 00:58 Hypochromasia 1+ 08/04/18 00:58 Sodium 141 mmol/L (136-145) 08/04/18 00:58 Potassium 3.6 mmol/L (3.5-5.1) 08/04/18 00:58 Chloride 106 mmol/L (98-107) 08/04/18 00:58 Carbon Dioxide 23.5 mmol/L (21.0-32.0) 08/04/18 00:58 Anion Gap 11.5 mmol/L (3-11) H 08/04/18 00:58 BUN 13 mg/dL (7-18) 08/04/18 00:58 Creatinine 0.75 mg/dL (0.55-1.02) 08/04/18 00:58 Estimated GFR/1.73 m2 >= 60.00 (mL/min/1.73m2) 08/04/18 00:58 Glucose 111 mg/dL (70-100) H 08/04/18 00:58 Calcium 8.6 mg/dL (8.5-10.1) 08/04/18 00:58 Iron 30 ug/dL (50-175) L 08/05/18 07:30 TIBC 305 ug/dL (250-450) 08/05/18 07:30 Transferrin % Sat 10 % (15-50) L 08/05/18 07:30 C-Reactive Protein 2.68 mg/dL (0.0-0.3) H 08/05/18 07:30 Albumin 2.1 g/dL (3.4-5.0) L 08/05/18 07:30
[2018-08-05] MEDS: IRON SUCROSE COMPLEX 200 MG in Normal Saline 100 ML 150 MG IVPB (18:40)
[2018-08-05] MEDS: Prenatal Multivitamin w/CA,FE TAB 1 TAB (18:40)
[2018-08-05] MEDS: Psyllium PKT 1 EACH PO (18:45)
[2018-08-05] MEDS: Lactobacillus Acidophilus CAP 1 CAP PO (19:16)
[2018-08-05 23:56] VITALS: BP 123/78; PULSE 72; RESP 18; TEMP 36.9; O2SAT 98
[2018-08-06] MEDS: Ibuprofen 800 MG TAB PO ×4 (00:45→18:33)
[2018-08-06 08:30] VITALS: BP 125/80; PULSE 71; RESP 16; TEMP 37
[2018-08-06] MEDS: Prenatal Multivitamin w/CA,FE TAB 1 TAB PO (08:42)
--- NOTE | 2018-08-06 11:26 | W.PM.PROGNOT ---
Date of Service Date of service: 08/06/18 Time of Service: 11:27 Assessment and Plan (1) Anemia: Current visit: Yes Status: Chronic s/p iv iron therapy cbc (2) Wound dehiscence, : Current visit: Yes Status: Acute continue wound vac awaiting home health (3) Bladder injury, open: Current visit: Yes Status: Acute s/p sow removal voiding well on own Subjective Patient reports: no new complaints Interval history since last seen: pain controlled on Motrin, voiding well no urgency or dysuria no fever no chill, received IV iron yesterday bonding well with baby Exam Narrative Exam Narrative: appears comfortable no distress GI Other: wound vac in place cassette changed yesterday Objective Objective Clinical Data: Vital Signs Temperature 37.0 C 08/06/18 08:30 Temperature Source Oral 08/06/18 08:30 Pulse 71 08/06/18 08:30 Pulse Rhythm Regular 08/06/18 08:30 Respiratory Rate 16 08/06/18 08:30 Respiratory Effort 08/06/18 08:30 Respiratory Depth Normal 08/06/18 08:30 Respiratory Pattern Normal 08/06/18 08:30 Blood Pressure 125/80 08/06/18 08:30 Blood Pressure Position Sitting 08/04/18 00:31 Pulse Oximetry 98 08/05/18 23:56 Oxygen Delivery Method Room Air 08/06/18 08:30 Oxygen Flow Rate 0 08/06/18 08:30 Pain Level 2 08/05/18 23:56 Intake & Output 08/05/18 08/05/18 08/06/18 11:59 23:59 11:59 Intake Total 1050 / 2260 1210 / 2260 Output Total 1300 / 3400 2100 / 3400 1200 / 1200 Balance -250 / -1140 -890 / -1140 -1200 / -1200 Intake: IV 1050 / 2260 1210 / 2260 Output: Urine 1300 / 3400 2100 / 3400 1200 / 1200 Other: Urine Color Yellow Yellow Yellow Urine Appearance Clear Clear Clear Urine Odor Normal None Normal Comment 1st void after sow removal. Voiding Methods Indwelling Catheter Toilet Toilet Laboratory Results WBC 7.00 k/cumm (4.4-10.8) 08/04/18 00:58 RBC 2.96 m/cumm (4.00-5.20) L 08/04/18 00:58 Hgb 7.9 g/dL (12.0-15.5) L 08/05/18 07:30 Hct 25.1 % (36.0-46.0) L 08/05/18 07:30 MCV 89.9 fL (80-95) 08/04/18 00:58 MCH 28.7 pg (27.0-33.0) 08/04/18 00:58 MCHC 32.0 g/dL (32.0-36.0) 08/04/18 00:58 RDW 14.5 % (11.7-14.6) 08/04/18 00:58 Plt Count 364 x1000/uL (130-400) D 08/04/18 00:58 MPV 8.8 fL (8.0-11.0) 08/04/18 00:58 Immature Gran % See Differential 08/04/18 00:58 Neutrophils % 57.0 08/04/18 00:58 Lymphocytes % 36.0 08/04/18 00:58 Monocytes % 6.0 08/04/18 00:58 Eosinophils % 0.0 08/04/18 00:58 Basophils % 0.0 08/04/18 00:58 Metamyelocytes % 1.0 % 08/04/18 00:58 Absolute Neutrophils 3.99 k/cumm (1.2-6.7) 08/04/18 00:58 Absolute Lymphocytes 2.52 k/cumm (1.2-3.4) 08/04/18 00:58 Absolute Monocytes 0.42 k/cumm (0.11-0.7) 08/04/18 00:58 Absolute Eosinophils 0.00 k/cumm (0.0-0.7) 08/04/18 00:58 Absolute Basophils 0.00 k/cumm (0.0-0.2) 08/04/18 00:58 Differential Comment Manual differential 08/04/18 00:58 RBC Morphology See below 08/04/18 00:58 Polychromasia Present 08/04/18 00:58 Hypochromasia 1+ 08/04/18 00:58 Sodium 141 mmol/L (136-145) 08/04/18 00:58 Potassium 3.6 mmol/L (3.5-5.1) 08/04/18 00:58 Chloride 106 mmol/L (98-107) 08/04/18 00:58 Carbon Dioxide 23.5 mmol/L (21.0-32.0) 08/04/18 00:58 Anion Gap 11.5 mmol/L (3-11) H 08/04/18 00:58 BUN 13 mg/dL (7-18) 08/04/18 00:58 Creatinine 0.75 mg/dL (0.55-1.02) 08/04/18 00:58 Estimated GFR/1.73 m2 >= 60.00 (mL/min/1.73m2) 08/04/18 00:58 Glucose 111 mg/dL (70-100) H 08/04/18 00:58 Calcium 8.6 mg/dL (8.5-10.1) 08/04/18 00:58 Iron 30 ug/dL (50-175) L 08/05/18 07:30 TIBC 305 ug/dL (250-450) 08/05/18 07:30 Transferrin % Sat 10 % (15-50) L 08/05/18 07:30 C-Reactive Protein 2.68 mg/dL (0.0-0.3) H 08/05/18 07:30 Albumin 2.1 g/dL (3.4-5.0) L 08/05/18 07:30
[2018-08-06 11:34] LABS: HCT 27.3 % (36.0-46.0); HGB 8.8 g/dL (12.0-15.5); Mean Corp. HGB Concentration 32.2 g/dL (32.0-36.0); Mean Corpuscular Hemoglobin 28.9 pg (27.0-33.0); Mean Corpuscular Volume 89.5 fL (80-95); Mean Platelet Volume 8.7 fL (8.0-11.0); Platelet Count 359 x1000/uL (130-400); RBC 3.05 m/cumm (4.00-5.20); RBC Distribution Width 14.3 % (11.7-14.6); White Blood Cell Count 7.82 k/cumm (4.4-10.8)
[2018-08-06] MEDS: Levothyroxine 100 MCG TAB PO (12:27)
--- NOTE | 2018-08-06 15:29 | W.PM.PROGNOT ---
Date of Service Date of service: 08/06/18 Time of Service: 15:30 Assessment and Plan (1) Anemia: Current visit: Yes Status: Chronic received IV iron slowly improving high protein diet/argainine support Vitamins w/ iron (2) Wound dehiscence, : Current visit: Yes Status: Acute wound vac. hopefully will have in am change dressing am otherwise doing well. Discussed care once at home. Subjective Interval history since last seen: Pt is doing well. no headaches. No CP or SOB. no productive cough. no dysuria. no leg pain or swelling. pt urinating without problems. pain being controlled w/ oral motrin. stopped abx- diarrhea has lessened. Exam Const General: cooperative, healthy appearing, comfortable, no acute distress, well developed and well groomed Nutritional Appearance: average body habitus and well nourished Orientation: alert, awake and oriented x3 [facility] Head: normal to inspection, normocephalic and atraumatic Ears: hearing grossly normal bilaterally and external ears normal General nose exam: external nose normal Face and sinus: normal facial exam and sinuses nontender Mouth: oral mucosae normal, lip normal, tongue normal and moist mucous membranes Teeth and gingiva: dentition normal Eyes General: appearance normal, both eyes and all related structures Conjunctivae: conjunctivae normal Sclera: sclerae normal Pupils: PERRL Neck Neck: normal visual inspection and full ROM Chest Chest: normal inspection of the chest Resp Effort & Inspection: normal respiratory effort, able to speak in complete sentences, no cough, no nasal flaring, not tachypneic and no use of accessory muscles Auscultation: clear to auscultation bilaterally, no rales, no rhonchi and no wheezes Cardio Jugular venous pressure: no JVD Rate: regular rate Rhythm: regular rhythm GI Inspection: no edema, non-distended, incision and large pannus Palpation: soft, no masses, nontender and No ascites Auscultation: normal bowel sounds Other: wound vac in place and functioning. less edema. surrounding skin is intact- no redness. less swelling General: deferred Skin General skin exam: no rashes or lesions noted Trauma: no lacerations or abrasions Neuro General: alert, oriented x3, oriented, gait normal, moves all extremities, no focal motor deficits and CN's II-XI intact bilaterally Cognition: normal cognition Speech: speech normal Gait: normal gait Motor: muscle tone normal throughout Extrem General: normal to inspection, full ROM and no clubbing, cyanosis or edema Psych Appearance: grossly normal and well kempt Mental Status: mental status grossly normal Speech and Movement: speech and movement normal Affect: normal affect Objective Objective Clinical Data: Abnormal lab results 08/06/18 Range/Units 11:10 RBC 3.05 L (4.00-5.20) m/cumm Hgb 8.8 L (12.0-15.5) g/dL Hct 27.3 L (36.0-46.0) % Vital Signs Temperature 37.0 C 08/06/18 08:30 Temperature Source Oral 08/06/18 08:30 Pulse 71 08/06/18 08:30 Pulse Rhythm Regular 08/06/18 08:30 Respiratory Rate 16 08/06/18 08:30 Respiratory Effort 08/06/18 08:30 Respiratory Depth Normal 08/06/18 08:30 Respiratory Pattern Normal 08/06/18 08:30 Blood Pressure 125/80 08/06/18 08:30 Blood Pressure Position Sitting 08/04/18 00:31 Pulse Oximetry 98 08/05/18 23:56 Oxygen Delivery Method Room Air 08/06/18 08:30 Oxygen Flow Rate 0 08/06/18 08:30 Pain Level 4 08/06/18 12:27 Intake & Output 08/05/18 08/06/18 08/06/18 23:59 11:59 23:59 Intake Total 1210 / 2260 Output Total 2100 / 3400 1200 / 1200 Balance -890 / -1140 -1200 / -1200 Intake: IV 1210 / 2260 Output: Urine 2100 / 3400 1200 / 1200 Other: Urine Color Yellow Yellow Urine Appearance Clear Clear Urine Odor None Normal Comment 1st void after sow removal. Voiding Methods Toilet Toilet Laboratory Results WBC 7.82 k/cumm (4.4-10.8) 08/06/18 11:10 RBC 3.05 m/cumm (4.00-5.20) L 08/06/18 11:10 Hgb 8.8 g/dL (12.0-15.5) L 08/06/18 11:10 Hct 27.3 % (36.0-46.0) L 08/06/18 11:10 MCV 89.5 fL (80-95) 08/06/18 11:10 MCH 28.9 pg (27.0-33.0) 08/06/18 11:10 MCHC 32.2 g/dL (32.0-36.0) 08/06/18 11:10 RDW 14.3 % (11.7-14.6) 08/06/18 11:10 Plt Count 359 x1000/uL (130-400) 08/06/18 11:10 MPV 8.7 fL (8.0-11.0) 08/06/18 11:10 Immature Gran % See Differential 08/04/18 00:58 Neutrophils % 57.0 08/04/18 00:58 Lymphocytes % 36.0 08/04/18 00:58 Monocytes % 6.0 08/04/18 00:58 Eosinophils % 0.0 08/04/18 00:58 Basophils % 0.0 08/04/18 00:58 Metamyelocytes % 1.0 % 08/04/18 00:58 Absolute Neutrophils 3.99 k/cumm (1.2-6.7) 08/04/18 00:58 Absolute Lymphocytes 2.52 k/cumm (1.2-3.4) 08/04/18 00:58 Absolute Monocytes 0.42 k/cumm (0.11-0.7) 08/04/18 00:58 Absolute Eosinophils 0.00 k/cumm (0.0-0.7) 08/04/18 00:58 Absolute Basophils 0.00 k/cumm (0.0-0.2) 08/04/18 00:58 Differential Comment Manual differential 08/04/18 00:58 RBC Morphology See below 08/04/18 00:58 Polychromasia Present 08/04/18 00:58 Hypochromasia 1+ 08/04/18 00:58 Sodium 141 mmol/L (136-145) 08/04/18 00:58 Potassium 3.6 mmol/L (3.5-5.1) 08/04/18 00:58 Chloride 106 mmol/L (98-107) 08/04/18 00:58 Carbon Dioxide 23.5 mmol/L (21.0-32.0) 08/04/18 00:58 Anion Gap 11.5 mmol/L (3-11) H 08/04/18 00:58 BUN 13 mg/dL (7-18) 08/04/18 00:58 Creatinine 0.75 mg/dL (0.55-1.02) 08/04/18 00:58 Estimated GFR/1.73 m2 >= 60.00 (mL/min/1.73m2) 08/04/18 00:58 Glucose 111 mg/dL (70-100) H 08/04/18 00:58 Calcium 8.6 mg/dL (8.5-10.1) 08/04/18 00:58 Iron 30 ug/dL (50-175) L 08/05/18 07:30 TIBC 305 ug/dL (250-450) 08/05/18 07:30 Transferrin % Sat 10 % (15-50) L 08/05/18 07:30 C-Reactive Protein 2.68 mg/dL (0.0-0.3) H 08/05/18 07:30 Albumin 2.1 g/dL (3.4-5.0) L 08/05/18 07:30
[2018-08-06 20:04] VITALS: BP 126/77; PULSE 79; RESP 16; TEMP 36.8; O2SAT 96
[2018-08-07] MEDS: Ibuprofen 800 MG TAB PO ×3 (00:40→13:14)
[2018-08-07 00:45] VITALS: BP 126/83; PULSE 91; RESP 16; TEMP 36.4; O2SAT 98
[2018-08-07] MEDS: Levothyroxine 100 MCG TAB PO (06:05)
[2018-08-07] MEDS: Prenatal Multivitamin w/CA,FE TAB 1 TAB PO (07:33)
[2018-08-07 07:45] VITALS: BP 116/75; PULSE 70; RESP 16; TEMP 36.8
--- NOTE | 2018-08-07 09:40 | ROE_ITS ---
DATE OF PROCEDURE: August 04, 2018 PREOPERATIVE DIAGNOSIS: Wound dehiscence. POSTOPERATIVE DIAGNOSIS: Same. PROCEDURE: Wound exploration, debridement and wound VAC application. SURGEON: Fely Conde D.O. DRAGGER OUT: Maureen Weller M.D. ANESTHESIA: General. ESTIMATED BLOOD LOSS: < 5 cc's CONDITION: The patient tolerated the procedure well without complications. HISTORY: Ms. Jose is a 38-year-old female seen at the request of Dr. Weller regarding wound dehis cence. She underwent a on 07/26/18 for unreassuring heart tones. She did have a blad karen injury at that time and underwent primary repair. She still has a Gross catheter in place. Her annemarie were removed on 08/02/18 and on 08/04/18 her wound broke open. She is not diabetic. She is no t a smoker. Her BMI is 41. Hemoglobin today is 8.5. The wound is inspected and it does not appear to be grossly infected. Cultures are pending. She is on antibiotics. She will be taken to the OR t elver for wound interrogation to ensure that the fascia is intact, debridement and wound VAC. Informe d consent is obtained, explaining risks and benefits of the procedure, including but not limited to b leeding, infection, need to be healed by secondary intent, damage to bowel, creation of fistula, comp lications of anesthesia and other unforetold complications. DESCRIPTION OF PROCEDURE: The patient is brought to the operative suite and placed in the supine pos ition. Anesthesia is administered per the Department of Anesthesia. The patient received IV antibio tics prior to beginning the procedure. She is prepped and draped in the usual sterile fashion using Betadine scrub solution. A time-out is performed. The wound is then explored and there are multiple pockets of seroma; these are all opened up and the old suture removed. The fascia line does appear to be intact. There is about 10-15% of just non-via ble, unhealthy tissue that's not infected per se, but it's just non-viable. This is curetted out sha rply. There is no significant bleeding noted. It's irrigated with 2 liters of saline. Again, the f ascia is intact. She is having a lot of drainage from the wound. The measurements of the wound toda y are 16 x 3.5 wide and 6 cm deep. A [employer] wound VAC system is applied and hooked up to 125 mmHg tommy nuous pressure with no air leaks. The patient tolerated the procedure well without complications, transferred to the recovery room in s table condition. cc: [facility] Br[facility] N.P.
[2018-08-07] MEDS: oxyCODONE 5 MG TAB PO (13:03)
[2018-08-07] MEDS: Normal Saline Flush 10 ML SYR IVP (13:04)
--- NOTE | 2018-08-07 14:08 | W.PM.PROGNOT ---
Date of Service Date of service: 08/07/18 Time of Service: 14:08 Assessment and Plan (1) Anemia: Current visit: Yes Status: Chronic cont Vits. (2) Wound dehiscence, : Current visit: Yes Status: Acute wound vac changed and wound evaluated today- looks good. no further necrosis. no infection. granulation forming. [id number] hopefully vac and supplies coming from [place] today and can be d/c'ed home no abx protein supp/nutritional supp/arginaid. walk adn pulm toilet will need rx for pain meds prior to dressing change and prn. F/u in clinic w/ Dr. Conde in 2 wks time for wound eval (bring supplies with and will change VAC at that time. doing well stable for d/c from Sx standpoint Subjective Interval history since last seen: Pt is doing well. no headaches. No CP or SOB. no productive cough. no dysuria. no leg pain or swelling. minimal pain. drainage has slowed down. will be changing sponge today Exam Const General: cooperative, healthy appearing, comfortable, no acute distress, well developed and well groomed Nutritional Appearance: average body habitus and well nourished Orientation: alert, awake and oriented x3 HENMT Head: normal to inspection, normocephalic and atraumatic Ears: hearing grossly normal bilaterally and external ears normal General nose exam: external nose normal Face and sinus: normal facial exam and sinuses nontender Mouth: oral mucosae normal, lip normal, tongue normal and moist mucous membranes Teeth and gingiva: dentition normal Eyes General: appearance normal, both eyes and all related structures Conjunctivae: conjunctivae normal Sclera: sclerae normal Pupils: PERRL Neck Neck: normal visual inspection and full ROM Chest Chest: normal inspection of the chest Resp Effort & Inspection: normal respiratory effort, able to speak in complete sentences, no cough, no nasal flaring, not tachypneic and no use of accessory muscles Auscultation: clear to auscultation bilaterally, no rales, no rhonchi and no wheezes Cardio Jugular venous pressure: no JVD Rate: regular rate Rhythm: regular rhythm GI Inspection: normal to inspection, no edema, non-distended, incision and large pannus Palpation: soft, no masses, nontender and No ascites Auscultation: normal bowel sounds Other: vac changed. granulation tissues starting. no infection/necrosis. minimal drainage- being handled by vac. no bleeding. surrounding tissue is intact. size: [id number]. pt tolerated dressing change Other: sow is out. no pain or burning w/ urination. feels like she is completely emptying bladder. cannot do bladder scans b/c of wound vac. Skin General skin exam: no rashes or lesions noted Trauma: no lacerations or abrasions Neuro General: alert, oriented x3, oriented, gait normal, moves all extremities, no focal motor deficits and CN's II-XI intact bilaterally Cognition: normal cognition Speech: speech normal Gait: normal gait Motor: muscle tone normal throughout Extrem General: normal to inspection, full ROM and no clubbing, cyanosis or edema Psych Appearance: grossly normal and well kempt Mental Status: mental status grossly normal Speech and Movement: speech and movement normal Affect: normal affect Objective Objective Clinical Data: Vital Signs Temperature 36.8 C 08/07/18 07:45 Temperature Source Oral 08/07/18 07:45 Pulse 70 08/07/18 07:45 Pulse Rhythm Regular 08/07/18 07:45 Respiratory Rate 16 08/07/18 07:45 Respiratory Effort Non-Labored 08/07/18 07:45 Respiratory Depth Normal 08/07/18 07:45 Respiratory Pattern Normal 08/07/18 07:45 Blood Pressure 116/75 08/07/18 07:45 Blood Pressure Position Sitting 08/04/18 00:31 Pulse Oximetry 98 08/07/18 00:45 Oxygen Delivery Method Room Air 08/07/18 07:45 Oxygen Flow Rate 0 08/07/18 07:45 Pain Level 6 08/07/18 13:14 Intake & Output 08/06/18 08/07/18 08/07/18 23:59 11:59 23:59 Other: Urine Appearance Clear Laboratory Results WBC 7.82 k/cumm (4.4-10.8) 08/06/18 11:10 RBC 3.05 m/cumm (4.00-5.20) L 08/06/18 11:10 Hgb 8.8 g/dL (12.0-15.5) L 08/06/18 11:10 Hct 27.3 % (36.0-46.0) L 08/06/18 11:10 MCV 89.5 fL (80-95) 08/06/18 11:10 MCH 28.9 pg (27.0-33.0) 08/06/18 11:10 MCHC 32.2 g/dL (32.0-36.0) 08/06/18 11:10 RDW 14.3 % (11.7-14.6) 08/06/18 11:10 Plt Count 359 x1000/uL (130-400) 08/06/18 11:10 MPV 8.7 fL (8.0-11.0) 08/06/18 11:10 Immature Gran % See Differential 08/04/18 00:58 Neutrophils % 57.0 08/04/18 00:58 Lymphocytes % 36.0 08/04/18 00:58 Monocytes % 6.0 08/04/18 00:58 Eosinophils % 0.0 08/04/18 00:58 Basophils % 0.0 08/04/18 00:58 Metamyelocytes % 1.0 % 08/04/18 00:58 Absolute Neutrophils 3.99 k/cumm (1.2-6.7) 08/04/18 00:58 Absolute Lymphocytes 2.52 k/cumm (1.2-3.4) 08/04/18 00:58 Absolute Monocytes 0.42 k/cumm (0.11-0.7) 08/04/18 00:58 Absolute Eosinophils 0.00 k/cumm (0.0-0.7) 08/04/18 00:58 Absolute Basophils 0.00 k/cumm (0.0-0.2) 08/04/18 00:58 Differential Comment Manual differential 08/04/18 00:58 RBC Morphology See below 08/04/18 00:58 Polychromasia Present 08/04/18 00:58 Hypochromasia 1+ 08/04/18 00:58 Sodium 141 mmol/L (136-145) 08/04/18 00:58 Potassium 3.6 mmol/L (3.5-5.1) 08/04/18 00:58 Chloride 106 mmol/L (98-107) 08/04/18 00:58 Carbon Dioxide 23.5 mmol/L (21.0-32.0) 08/04/18 00:58 Anion Gap 11.5 mmol/L (3-11) H 08/04/18 00:58 BUN 13 mg/dL (7-18) 08/04/18 00:58 Creatinine 0.75 mg/dL (0.55-1.02) 08/04/18 00:58 Estimated GFR/1.73 m2 >= 60.00 (mL/min/1.73m2) 08/04/18 00:58 Glucose 111 mg/dL (70-100) H 08/04/18 00:58 Calcium 8.6 mg/dL (8.5-10.1) 08/04/18 00:58 Iron 30 ug/dL (50-175) L 08/05/18 07:30 TIBC 305 ug/dL (250-450) 08/05/18 07:30 Transferrin % Sat 10 % (15-50) L 08/05/18 07:30 C-Reactive Protein 2.68 mg/dL (0.0-0.3) H 08/05/18 07:30 Albumin 2.1 g/dL (3.4-5.0) L 08/05/18 07:30
--- NOTE | 2018-08-08 12:56 | DSE_ITS ---
Date of service: 08/07/18 Time of Service: 16:00 DS: Diagnosis Discharge Diagnosis (1) Anemia: Status: Chronic (2) Wound dehiscence, : Status: Acute Discharge Plan Disposition Patient Disposition: HOME W/HOME HEALTH SERVICE Condition: Good Discharge Details Reason For Visit: WOUND DEHISCENCE AND INFECTION Admit Date/Time: 08/04/18 00:57 Admit Provider: Maureen Weller Attending Provider: Maureen Weller Primary Care Provider: Cata Hoskins Hospital Course Hospital Course: Patient was admitted through ED for wound dehiscence. Wound culture were taken and she was started on Zosyn. General surgery was consult obtained and it was agreed to proceed with debridement and wound vac placement. She remained on Zosyn until wound culture preliminary results were no growthand she was experiencing diarrhea. C-diff culture was negative. She remained afebrile throughout her hospital stay and was dx with dehiscence but no infection of the wound, Case management was consulted for home wound vac pump arrangement were made but home health could not deliver until Tuesday after admission. Her dressing was changed Tuesday08/07/18 and measurement were 14.5x3x4 cm. She was discharged home HD #4 in good condition Home Meds and New Rx's Prescriptions: New acetaminophen [Tylenol] 325 mg Tablet 650 mg PO Q4H PRN PRNQty: 30 RF: 0 ibuprofen [IBU] 800 mg Tablet 800 mg PO Q6H PRN PRNQty: 90 RF: 0 oxycodone 5 mg Tablet 5 mg PO Q6H PRN PRNQty: 10 RF: 0 PNV cmb#95-ferrous fumarate-FA [] 28 mg iron- 800 mcg Tablet 1 tab PO DAILY Qty: 90 RF: 1 Continued ibuprofen 600 mg tablet 600 mg PO QID PRN (Reason: pain) Qty: 60 RF: 1 levothyroxine 100 MCG tablet 100 mcg PO DAILY 30 Days Qty: 90 RF: 3 Prenatabs Rx 1 EACH tablet 1 tab-cap PO DAILY RF: 0 cholecalciferol (vitamin D3) [Vitamin D3] 400 UNIT tablet 800 unit PO DAILY RF: 0 breast pump device .ROUTE .MEDSUPPLY Qty: 1 RF: 0 cephalexin 250 mg capsule 250 mg PO BID Qty: 20 RF: 0 omega-3 fatty acids-fish oil [Fish Oil] 1 EACH capsule 1 tab PO HS RF: 0 oxycodone-acetaminophen 5-325 mg Tablet 1 tab PO Q4H PRN PRNQty: 30 RF: 0 Discontinued ibuprofen 600 mg tablet 600 mg PO TID RF: 0 Discharge Instructions Instructions: Wound Healing and Your Diet (DC) Care Plan Goals: Home Health for wound vacuum dressing change Mon, Wed, Tuesday Goal is for complete closure of wound Stand Alone Forms: BC Instructions, BC Discharge Instruc Referrals: Maureen Weller [ [facility] STAFF PHYSICIAN] - (4 weeks needs appointment) Fely Conde DO [OSTEOPATHIC DOCTOR] - (2 week appointment for wound check) Activity:: Activity as Tolerated Equipment/Supplies:: Wound vac Diet:: As Tolerated Discharge Orders Discharge Orders: Discharge Order (Routine); Ordered 08/07/18 Ordered By: Maureen Weller Discharge Data Discharge Date/Time-TO BE ENTERED AT DEPARTURE: 08/07/18 19:15 DS: Summary Status at Discharge Functional status at discharge: independent ambulation Time Spent with Patient Greater than 30 minutes Exam Narrative Exam Narrative: comfortable, bonding well with baby, well pain controlled with Ibuprofen GI Other: wound vac dressing changed before discharge measurements 14.5x3x4 cm DS: Data Vitals/I&O Vitals and I&O: Vital Signs Temperature 36.8 C 08/07/18 07:45 Temperature Source Oral 08/07/18 07:45 Pulse 70 08/07/18 07:45 Pulse Rhythm Regular 08/07/18 07:45 Respiratory Rate 16 08/07/18 07:45 Respiratory Effort Non-Labored 08/07/18 07:45 Respiratory Depth Normal 08/07/18 07:45 Respiratory Pattern Normal 08/07/18 07:45 Blood Pressure 116/75 08/07/18 07:45 Blood Pressure Position Sitting 08/04/18 00:31 Pulse Oximetry 98 08/07/18 00:45 Oxygen Delivery Method Room Air 08/07/18 07:45 Oxygen Flow Rate 0 08/07/18 07:45 Pain Level 6 08/07/18 13:14 [facility] Medical History Anemia (Chronic) Wound dehiscence, (Acute) Bladder injury, open (Acute) Reactive depression (situational) (Acute) Other social stressor (Acute) Alvarez cerclage present (Acute) Hx of female infertility BMI 45.0-49.9, adult (Chronic) PCOS (polycystic ovarian syndrome) (Chronic) delivery, delivered, current hospitalization (Acute) Hypothyroidism (acquired) (Chronic) Surgical History Status post primary low transverse section (Acute) Status post debridement (Acute) Colonoscopy - IV Sedation (12/01/15) Family History Mother Essential hypertension Trigeminal neuralgia of right side of face Lupus (systemic lupus erythematosus) Father Diabetes Essential hypertension Social History Smoking/Tobacco Use Status: Never Alcohol Intake: current Alcohol Intake frequency: a few times a month Drug use: Never Substance use type: does not use Adopted: No Foster care: No Household members: spouse, children and other Details: Dariel, and his stepdaughter, Alex Housing: house Number of Children: 1 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 Pets and animals: Yes (2 cats) What is your relationship status?: Panel score (0-1 are the most socially isolated patients): 1 What type of physical activity do you participate in: none Special josef needs: No Agree to transfusion: Yes Seatbelt use: always Helmet use: Yes Drive intox or ride w/intox motorcoach driver: No Water heater temp set <120 deg: Yes Working smoke detector in home: Yes Fire extinguisher in home: Yes Carbon monox detector in home: Yes Firearms in home: No Do you feel safe at home: Yes Do you feel safe in your relationship?: Yes Victim of physical abuse: No Victim of emotional abuse: No Victim of sexual abuse: No History History 2 Para Hx # Term Pregnancies 0 Multiple births 0 Hx # Pregnancies Ectopic pregnancies AB induced 0 Hx Number of Living Children 0 AB spontaneous 1 Past Pregnancies Del. Date GA/Weeks # Outcome Route Wgt Sex Labor Lgth Anesthesia Location Prov Complic 08/12/16 No Successful vaginal Male 07/26/18 No Successful 4.111 kg Male 24hrs KP/AOC Delivery Date: 07/26/18 On 08/02/18 @ 11:18 Anya Bradford LTCS for non-reassuring FHR @ 2+ station. Injury to dome of bladder and anterior wall of cervix, 'Alex' Delivery Date: 08/12/16 On 01/18/18 @ 18:11 OAnya Fermin IVF . Painless cervical dilatation at 18-6/7 weeks. Membranes prolapsing into the vagina at time of initial presentation. Went on to have an induction of labor delivered a non-viable named Amador Catherine.
--- NOTE | 2018-08-16 15:44 | DSE_ITS ---
Date of service: 08/07/18 Time of Service: 19:00 DS: Diagnosis Discharge Diagnosis (1) Anemia: Status: Chronic (2) Wound dehiscence, : Status: Acute Discharge Plan Disposition Patient Disposition: HOME W/HOME HEALTH SERVICE Condition: Good Discharge Details Reason For Visit: WOUND DEHISCENCE AND INFECTION Admit Date/Time: 08/04/18 00:57 Admit Provider: Maureen Weller Attending Provider: Maureen Weller Primary Care Provider: Cata Hoskins Hospital Course Hospital Course: Patient was admitted through ED for wound dehiscence. Wound culture were taken and she was started on Zosyn. General surgery was consult obtained and it was agreed to proceed with debridement and wound vac placement. She remained on Zosyn until wound culture preliminary results were no growthand she was experiencing diarrhea. C-diff culture was negative. She remained afebrile throughout her hospital stay and was dx with dehiscence but no infection of the wound, Case management was consulted for home wound vac pump arrangement were made but home health could not deliver until Tuesday after admission. Her dressing was changed Tuesday08/07/18 and measurement were 14.5x3x4 cm. She was discharged home HD #4 in good condition Home Meds and New Rx's Prescriptions: New acetaminophen [Tylenol] 325 mg Tablet 650 mg PO Q4H PRN PRNQty: 30 RF: 0 ibuprofen [IBU] 800 mg Tablet 800 mg PO Q6H PRN PRNQty: 90 RF: 0 oxycodone 5 mg Tablet 5 mg PO Q6H PRN PRNQty: 10 RF: 0 PNV cmb#95-ferrous fumarate-FA [] 28 mg iron- 800 mcg Tablet 1 tab PO DAILY Qty: 90 RF: 1 Continued ibuprofen 600 mg tablet 600 mg PO QID PRN (Reason: pain) Qty: 60 RF: 1 levothyroxine 100 MCG tablet 100 mcg PO DAILY 30 Days Qty: 90 RF: 3 Prenatabs Rx 1 EACH tablet 1 tab-cap PO DAILY RF: 0 cholecalciferol (vitamin D3) [Vitamin D3] 400 UNIT tablet 800 unit PO DAILY RF: 0 breast pump device .ROUTE .MEDSUPPLY Qty: 1 RF: 0 cephalexin 250 mg capsule 250 mg PO BID Qty: 20 RF: 0 omega-3 fatty acids-fish oil [Fish Oil] 1 EACH capsule 1 tab PO HS RF: 0 oxycodone-acetaminophen 5-325 mg Tablet 1 tab PO Q4H PRN PRNQty: 30 RF: 0 Discontinued ibuprofen 600 mg tablet 600 mg PO TID RF: 0 Discharge Instructions Instructions: Wound Healing and Your Diet (DC) Care Plan Goals: Home Health for wound vacuum dressing change Mon, Tue, Tuesday Goal is for complete closure of wound Stand Alone Forms: BC Instructions, BC Discharge Instruc Referrals: Maureen Weller [ [facility] STAFF PHYSICIAN] - (4 weeks needs appointment) Fely Conde DO [OSTEOPATHIC DOCTOR] - (2 week appointment for wound check) Activity:: Activity as Tolerated Equipment/Supplies:: Wound vac Diet:: As Tolerated Discharge Orders Discharge Orders: Discharge Order (Routine); Ordered 08/07/18 Ordered By: Maureen Weller Discharge Data Discharge Date/Time-TO BE ENTERED AT DEPARTURE: 08/07/18 19:15 Exam Const General: cooperative and no acute distress Resp Effort & Inspection: normal respiratory effort Auscultation: clear to auscultation bilaterally Cardio Rate: regular rate Rhythm: regular rhythm Heart Sounds: S1 normal and S2 normal GI Other: wound vacuum in place dressing changed 08/07/2018 no evidence infection Other: sow out PVR<250 DS: Data Vitals/I&O Vitals and I&O: Vital Signs Temperature 36.8 C 08/07/18 07:45 Temperature Source Oral 08/07/18 07:45 Pulse 70 08/07/18 07:45 Pulse Rhythm Regular 08/07/18 07:45 Respiratory Rate 16 08/07/18 07:45 Respiratory Effort Non-Labored 08/07/18 07:45 Respiratory Depth Normal 08/07/18 07:45 Respiratory Pattern Normal 08/07/18 07:45 Blood Pressure 116/75 08/07/18 07:45 Blood Pressure Position Sitting 08/04/18 00:31 Pulse Oximetry 98 08/07/18 00:45 Oxygen Delivery Method Room Air 08/07/18 07:45 Oxygen Flow Rate 0 08/07/18 07:45 Pain Level 6 08/07/18 13:14 PFSH Medical History Anemia (Chronic) Wound dehiscence, (Acute) Bladder injury, open (Acute) Reactive depression (situational) (Acute) Other social stressor (Acute) Alvarez cerclage present (Acute) Hx of female infertility BMI 45.0-49.9, adult (Chronic) PCOS (polycystic ovarian syndrome) (Chronic) delivery, delivered, current hospitalization (Acute) Hypothyroidism (acquired) (Chronic) Surgical History Status post primary low transverse section (Acute) Status post debridement (Acute) Colonoscopy - IV Sedation (12/01/15) Family History Mother Essential hypertension Trigeminal neuralgia of right side of face Lupus (systemic lupus erythematosus) Father Diabetes Essential hypertension Social History Smoking/Tobacco Use Status: Never Alcohol Intake: current Alcohol Intake frequency: a few times a month Drug use: Never Substance use type: does not use Adopted: No Foster care: No Household members: spouse, children and other Details: Dariel, and his stepdaughter, infant Alex Housing: house Number of Children: 1 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 Pets and animals: Yes (2 cats) What is your relationship status?: Panel score (0-1 are the most socially isolated patients): 1 What type of physical activity do you participate in: none Special josef needs: No Agree to transfusion: Yes Seatbelt use: always Helmet use: Yes Drive intox or ride w/intox package car driver: No Water heater temp set <120 deg: Yes Working smoke detector in home: Yes Fire extinguisher in home: Yes Carbon monox detector in home: Yes Firearms in home: No Do you feel safe at home: Yes Do you feel safe in your relationship?: Yes Victim of physical abuse: No Victim of emotional abuse: No Victim of sexual abuse: No History History 2 Para Hx # Term Pregnancies 0 Multiple births 0 Hx # Pregnancies Ectopic pregnancies AB induced 0 Hx Number of Living Children 0 AB spontaneous 1 Past Pregnancies Del. Date GA/Weeks # Outcome Route Wgt Sex Labor Lgth Anesthesia Location Prov [facility] 08/12/16 19 No Successful vaginal Male 07/26/18 No Successful 4.111 kg Male 24hrs KP/AOC Delivery Date: 07/26/18 On 08/02/18 @ 11:18 Anya Bradford LTCS for non-reassuring FHR @ 2+ station. Injury to dome of bladder and anterior wall of cervix, 'Alex' Delivery Date: 08/12/16 On 01/18/18 @ 18:11 Anya Bradford IVF . Painless cervical dilatation at 18-6/7 weeks. Membranes prolapsing into the vagina at time of initial presentation. Went on to have an induction of labor delivered a non-viable infant named Amador Catherine.
== END 2018-08-07 19:15 | disposition home health service (06) ==
LOC: ER 01:06 → OBS 01:46
PROVIDERS: Surgery; Admitting Provider Obstetrics & Gynecology; Emergency Provider Emergency Medicine; PCP Nurse Practitioner Family; Visit Provider Obstetrics & Gynecology
PROC: 0HB7XZZ Excision of Abdomen Skin, External Approach (ICD-10-PCS; CPT 97608; principal; 2018-08-04 12:45)
DX: O90.0 Disruption of cesarean delivery wound (principal); O90.2 Hematoma of obstetric wound; O9A.23 Injury, poisoning and certain other consequences of external causes complicating the puerperium; N99.72 Accidental puncture and laceration of a genitourinary system organ or structure during other procedure; K52.1 Toxic gastroenteritis and colitis; T36.0X5A Adverse effect of penicillins, initial encounter; O90.81 Anemia of the puerperium; D64.9 Anemia, unspecified; O99.285 Endocrine, nutritional and metabolic diseases complicating the puerperium; E03.9 Hypothyroidism, unspecified; O99.215 Obesity complicating the puerperium; E66.9 Obesity, unspecified; Z68.41 Body mass index [BMI] 40.0-44.9, adult
CPT/HCPCS: 97608; 97597; 97598 ×2; 36415; 80048; 85027; 87077; 96365; 99223; 99231; 99232; 99233; 99239; 99252; 99285; NC; 82040; 83540; 83550; 85014; 85018; 85025; 86140; 87070; 87186; 87205; 87324; 99284; A4600; J1756; J2270; J2543; J3010

== ENCOUNTER 2018-09-06 16:20 | Outpatient (CLI) | payer BC, SELFPAY ==
[2018-09-06 18:17] LABS: HCT 35.7 % (36.0-46.0); HGB 11.5 g/dL (12.0-15.5); Mean Corp. HGB Concentration 32.2 g/dL (32.0-36.0); Mean Corpuscular Volume 87.1 fL (80-95); Mean Platelet Volume 10.5 fL (8.0-11.0); Platelet Count 241 x1000/uL (130-400); RBC Distribution Width 13.8 % (11.7-14.6); White Blood Cell Count 6.44 k/cumm (4.4-10.8)
[2018-09-06 18:47] LABS: Ferritin 55 ng/mL (8-388)
== END 2018-09-06 16:40 ==
PROVIDERS: PCP Nurse Practitioner Family; Visit Provider Surgery
DX: D64.9 Anemia, unspecified (principal); O90.0 Disruption of cesarean delivery wound
CPT/HCPCS: 36415; 85027; 82728

== ENCOUNTER 2018-10-03 16:26 | Outpatient (CLI) | payer BC, SELFPAY ==
[2018-10-03 18:22] LABS: TSH (W/Ref FT4) 0.56 uIU/mL (0.358-3.74)
== END 2018-10-03 16:46 ==
PROVIDERS: PCP Nurse Practitioner Family; Visit Provider Obstetrics & Gynecology Gynecology
DX: E03.9 Hypothyroidism, unspecified (principal)
CPT/HCPCS: 36415; 84443

== ENCOUNTER 2020-05-13 03:18 | Outpatient (CLI) | payer BC, SELFPAY ==
[2020-05-13 16:52] LABS: HCG Quant, Pregnancy 3145 mIU/mL (1-3)
== END 2020-05-13 03:19 | disposition home or self-care (01) ==
LOC: LBO 03:18
PROVIDERS: PCP Nurse Practitioner Family; Visit Provider Obstetrics & Gynecology Gynecology
DX: N91.2 Amenorrhea, unspecified (principal)
CPT/HCPCS: 36415; 84702

== ENCOUNTER 2020-06-24 02:49 | Outpatient (CLI) | payer BC, SELFPAY ==
[2020-06-24 12:08] LABS: Kit/Specimen SENT
[2020-06-24 12:16] LABS: Abs Immature Grans 0.04 10^3/uL (0.0-0.06); Absolute Basophil Count 0.03 10^3/uL (0.0-0.2); Absolute Eosinophil Count 0.15 10^3/uL (0.0-0.7); Absolute Lymphocyte Count 1.67 10^3/uL (1.2-3.4); Absolute Monocyte Count 0.38 10^3/uL (0.1-0.8); Absolute Neutrophil Count 4.97 10^3/uL (1.2-6.7); Basophils % 0.4; Eosinophils % 2.1; HCT 35.9 % (36.0-46.0); HGB 12.2 g/dL (11.2-15.7); Immature Grans % 0.6; Lymphocytes % 23.1; MCH 28.8 pg (27.0-33.0); MCV 84.9 fL (80-95); MPV 10.2 fL (8.0-11.0); Monocytes % 5.2; Neutrophils % 68.6; Nucleated RBC 0 %; Platelet Count 190 10^3/uL (130-400); RBC 4.23 10^6/uL (3.93-5.22); RDW 13.1 % (11.7-14.6); RDW-SD 40.8 fL; WBC 7.24 10^3/uL (4.4-10.8)
[2020-06-24 12:20] LABS: Glucose,1 Hr (Glucola) 156 mg/dL (80-140)
[2020-06-24 12:25] LABS: *AMPHETAMINES SCREEN URINE Negative (Negative); *BARBITURATES SCREEN URINE Negative (Negative); *BENZODIAZEPINES SCREEN URINE Negative (Negative); Cannabinoids THC Negative (Negative); Cocaine Screen,Urine Negative (Negative); METHADONE URINE SCREEN Negative (Negative); OPIATES URINE SCREEN Negative (Negative)
[2020-06-24 12:29] LABS: Tricyclic Antidepressants Negative (Negative)
[2020-06-24 12:57] LABS: FREE T4 0.98 ng/dL (0.76-1.46); TSH 1.68 uIU/mL (0.36-3.74)
[2020-06-25 09:50] LABS: Rubella IgG Ab (UVM) Positive (See Note); Varicella IgG Antibody Positive (See Note)
[2020-06-25 09:59] LABS: Hepatitis B Surface Ag Negative (Negative)
[2020-06-25 10:39] LABS: Hepatitis C Ab w Rflx HCV PCR Negative (Negative)
[2020-06-25 10:52] LABS: HIV-1/2 Ag & Ab Screen Negative (Negative)
[2020-06-25 14:09] LABS: Chlamydia Result Negative (Negative); GC Result Negative (Negative)
[2020-06-25 16:28] LABS: Syphilis Total Ab w/Reflex Nonreactive (Nonreactive)
[2020-06-27 10:49] LABS: Buprenorphine Negative ng/mL (Cutoff: 5.0); Norbuprenorphine Negative ng/mL (Cutoff: 2.5)
== END 2020-06-24 02:50 | disposition home or self-care (01) ==
LOC: LBO 02:49
PROVIDERS: Advanced Practice Midwife; PCP Nurse Practitioner Family; Visit Provider Advanced Practice Midwife
DX: Z34.91 Encounter for supervision of normal pregnancy, unspecified, first trimester (principal); Z11.3 Encounter for screening for infections with a predominantly sexual mode of transmission; Z11.4 Encounter for screening for human immunodeficiency virus [HIV]; Z11.59 Encounter for screening for other viral diseases; Z01.84 Encounter for antibody response examination
CPT/HCPCS: 80307; 82950; 86787; 86803; 86850; 86900; 86901; 87340; 87389; 87491; 87591; 84439; 84443; 85025; 86762; 86780; 87086

== ENCOUNTER 2020-07-03 02:57 | Outpatient (CLI) | payer BC, SELFPAY ==
[2020-07-03 10:09] LABS: Kit/Specimen SENT
[2020-07-03 10:21] LABS: Glucose 1 Hour 191 mg/dL
[2020-07-03 12:12] LABS: Glucose 3 Hour 87 mg/dL
--- NOTE | 2020-07-24 12:43 | W.DIABETESNO ---
Date of service: 07/24/20 Time of Service: 12:43 Diabetes Note NOTE: Met with Enedelia at [facility]. NIDHI 01/07/21 with 1 hour GTT last week 156 mg/dl. Hx of macrosomia with second . Hx of PCOS, used to take metformin. Enedelia keeps her blood sugar log in her phone, reviewed fasting sugars < 95mg/dl and most post prandial levels < 140 mg/dl. Three elevated PP levels related to dessert. Enedelia has followed lowered carb diet in past and familiar with carb exchanges. Reviewed QID finger sticks and goals, and ideal diet to follow with 175-200 g CHO, 60-70 g pro, 50-55 g fat. Encouraged 150 min exercise weekly and encouraged her to call if finger sticks are elevated. Provided contact information and written materials. Expect good compliance. Time Spent in Nutritional Counseling and Treatment: 15
== END 2020-07-03 02:58 | disposition home or self-care (01) ==
PROVIDERS: PCP Nurse Practitioner Family; Visit Provider Advanced Practice Midwife
DX: Z34.91 Encounter for supervision of normal pregnancy, unspecified, first trimester (principal)
CPT/HCPCS: 36415; 82951

== ENCOUNTER 2020-09-01 02:17 | Outpatient (CLI) | payer BC, SELFPAY ==
[2020-09-03 11:40] LABS: AFP 42.4 ng/mL; Calculated age at EDD 40 years; Cigarette smoking status non-Smoker; GA used in risk estimate Scan estimate; IVF Pregnancy No; Initial or repeat testing Initial testing; Insulin dependent diabetes No; Maternal Weight 312 lbs; Number of Fetuses 1; Physician Phone Number 802-748-7300; Prev Pregnancy w/NTD No; RECOMMENDED FOLLOW UP None.; Results Summary Normal risk
--- NOTE | 2020-09-22 14:32 | DIABASSESS_ITS ---
Date of service: 09/22/20 Time of Service: 14:32 Diabetes Note NOTE: Met with Enedelia at [facility] today. She reports fasting sugars mostly less than 95 mg/dl, has had two values greater than 95 in last month. Post prandial levels reported as less than 140 mg/dl. Overall, GDM well controlled with diet and life style at this time. Will continue to follow and encourage during . Time Spent in Nutritional Counseling and Treatment: 10 min
== END 2020-09-01 02:18 | disposition home or self-care (01) ==
LOC: LBO 02:17
PROVIDERS: PCP Nurse Practitioner Family; Visit Provider Obstetrics & Gynecology Gynecology
DX: Z34.92 Encounter for supervision of normal pregnancy, unspecified, second trimester (principal); Z36.89 Encounter for other specified antenatal screening; Z3A.22 22 weeks gestation of pregnancy
CPT/HCPCS: 36415; 82105

== ENCOUNTER 2020-12-09 19:05 | Outpatient (REF) | payer BC, SELFPAY ==
[2020-12-09 21:53] LABS: *AMPHETAMINES SCREEN URINE Negative (Negative); *BARBITURATES SCREEN URINE Negative (Negative); *BENZODIAZEPINES SCREEN URINE Negative (Negative); Cannabinoids THC Negative (Negative); Cocaine Screen,Urine Negative (Negative); METHADONE URINE SCREEN Negative (Negative); OPIATES URINE SCREEN Negative (Negative)
[2020-12-09 21:55] LABS: Tricyclic Antidepressants Negative (Negative)
[2020-12-17 14:53] LABS: Buprenorphine Negative ng/mL (Cutoff: 5.0); Norbuprenorphine Negative ng/mL (Cutoff: 2.5)
== END 2020-12-09 19:06 | disposition home or self-care (01) ==
LOC: LBN 19:05
PROVIDERS: PCP Nurse Practitioner Family; Visit Provider Obstetrics & Gynecology
DX: O09.523 Supervision of elderly multigravida, third trimester (principal); Z3A.36 36 weeks gestation of pregnancy
CPT/HCPCS: 80307

== ENCOUNTER 2021-02-09 02:46 | Outpatient (CLI) | payer BC, SELFPAY ==
[2021-02-09 11:06] LABS: TSH (W/Ref FT4) 1.16 uIU/mL (0.36-3.74)
[2021-02-09 11:36] LABS: Glucose 1 Hour 174 mg/dL
[2021-02-09 12:29] LABS: GTT Comment See Comments
== END 2021-02-09 02:47 | disposition home or self-care (01) ==
LOC: LBO 02:46
PROVIDERS: PCP Nurse Practitioner Family; Visit Provider Obstetrics & Gynecology Gynecology
DX: O24.419 Gestational diabetes mellitus in pregnancy, unspecified control (principal); E03.9 Hypothyroidism, unspecified
CPT/HCPCS: 36415; 82951; 84443

== ENCOUNTER 2021-08-10 02:14 | Outpatient (CLI) | payer BC, SELFPAY ==
[2021-08-10 13:31] LABS: HCT 39.9 % (36.0-46.0); HGB 13.5 g/dL (11.2-15.7); MCH 29.7 pg (27.0-33.0); MCHC 33.8 % (32.0-36.0); MCV 88 fL (80-95); MPV 9.9 fL (8.0-11.0); Platelet Count 212 10^3/uL (130-400); RBC 4.55 10^6/uL (3.93-5.22); RDW 12.9 % (11.7-14.6); RDW-SD 40.9 fL; WBC 8.17 10^3/uL (4.4-10.8)
[2021-08-10 14:48] LABS: Iron 38 ug/dL (50-170); Total Iron Binding Capacity 328 ug/dL (250-450); Transferrin Sat 12 % (15-50)
== END 2021-08-10 02:15 | disposition home or self-care (01) ==
LOC: LBO 02:14
PROVIDERS: PCP Nurse Practitioner Family; Visit Provider Obstetrics & Gynecology Gynecology
DX: Z00.00 Encounter for general adult medical examination without abnormal findings (principal)
CPT/HCPCS: 36415; 85027; 83540; 83550

== ENCOUNTER 2022-06-18 15:15 | Outpatient (REF) | payer BC, SELFPAY ==
[2022-06-18 15:12] LABS: HCT 42.2 % (36.0-46.0); MCH 28.5 pg (27.0-33.0); MCHC 33.2 % (32.0-36.0); MCV 86 fL (80-95); MPV 10.4 fL (8.0-11.0); Platelet Count 200 10^3/uL (130-400); RBC 4.91 10^6/uL (3.93-5.22); RDW 13.1 % (11.7-14.6); RDW-SD 40.6 fL; WBC 6.52 10^3/uL (4.4-10.8)
[2022-06-18 16:45] LABS: Iron 70 ug/dL (50-170); Total Iron Binding Capacity 339 ug/dL (250-450); Transferrin Sat 21 % (15-50)
[2022-06-18 16:54] LABS: Anion Gap 9.5 mmol/L (3-11); BUN 15 mg/dL (7-18); CO2 27.5 mmol/L (21.0-32.0); CREATININE 0.9 mg/dL (0.55-1.02); Calculated LDL 112 mg/dL (<100); Chloride 108 mmol/L (98-107); Cholesterol 182 mg/dL (<200); Estimated GFR 81.86 (mL/min/1.73m2); Glucose 105 mg/dL (74-106); HDL Cholesterol 57 mg/dL (40-60); Potassium 4.4 mmol/L (3.5-5.1); Sodium 145 mmol/L (136-145); TSH (W/Ref FT4) 3.67 uIU/mL (0.36-3.74); Triglyceride 65 mg/dL (<150)
[2022-06-18 17:07] LABS: Vitamin D 25 Total 30.3 ng/mL (30-100)
== END 2022-06-18 15:16 | disposition home or self-care (01) ==
LOC: NCHCN 15:15
PROVIDERS: PCP Nurse Practitioner Family; Visit Provider Nurse Practitioner Family
DX: E03.9 Hypothyroidism, unspecified (principal); M25.531 Pain in right wrist; Z00.00 Encounter for general adult medical examination without abnormal findings; Z86.2 Personal history of diseases of the blood and blood-forming organs and certain disorders involving the immune mechanism
CPT/HCPCS: 80048; 80061; 82306; 85027; 83540; 83550; 84443

== ENCOUNTER 2023-06-09 16:30 | Outpatient (REF) | payer BC, SELFPAY ==
[2023-06-09 19:09] LABS: Hemoglobin A1C 5.3 % (<5.7)
[2023-06-09 19:23] LABS: ALT 27 U/L (14-59); AST 14 U/L (15-37); Albumin 3.6 g/dL (3.4-5.0); Alkaline Phosphatase 80 U/L (46-116); Anion Gap 9.2 mmol/L (3-11); BUN 15 mg/dL (7-18); Bilirubin, Total 0.3 mg/dL (0.2-1.0); CO2 27.8 mmol/L (21.0-32.0); Calcium 9.6 mg/dL (8.5-10.1); Calculated LDL 118 mg/dL (<100); Chloride 106 mmol/L (98-107); Cholesterol 198 mg/dL (<200); Estimated GFR 71.69 (mL/min/1.73m2); Glucose 87 mg/dL (74-106); HDL Cholesterol 51 mg/dL (40-60); Potassium 4.1 mmol/L (3.5-5.1); Sodium 143 mmol/L (136-145); TSH 3.14 uIU/Ml (0.36-3.74); Total Protein 7.5 g/dL (6.4-8.2); Triglyceride 148 mg/dL (<150)
== END 2023-06-09 16:31 | disposition home or self-care (01) ==
LOC: NCHCN 16:30
PROVIDERS: Visit Provider Nurse Practitioner Family
DX: E03.9 Hypothyroidism, unspecified (principal)
CPT/HCPCS: 80053; 80061; 83036; 84443

== ENCOUNTER 2023-08-09 14:04 | Outpatient (REF) | payer BC, SELFPAY ==
--- NOTE | 2023-08-09 14:00 | PAPFT_PTH ---
PATIENT: Enedelia Jose LOC: [facility] U#:[id number] AGE/SX: 43/F ROOM: RE08/09/[address]: Anya Bradford : 1980 BED: DIS: 08/09/2023 SPEC #: [id number] RECD: 08/09/23 18:10 STATUS: MARIBEL RETerese #: [id number] ELIEZER: 08/09/23 14:[address]: Anya Bradford DEPT: [facility] Cytology RECD BY: Neena Ward ENTERED: 08/09/23 18:11 SP TYPE: PAPFT OTHR DR: MANDO SILVER NP Tissues: 1 - CX/ENDOCX FOR PAP SMEARS Procedures: PAP THIN PREP/UVM Screening HPV DNA PROBE Comments: [id number]
== END 2023-08-09 14:05 | disposition home or self-care (01) ==
LOC: LBN 14:04
PROVIDERS: PCP Nurse Practitioner Family; Visit Provider Obstetrics & Gynecology Gynecology
DX: Z12.4 Encounter for screening for malignant neoplasm of cervix (principal)
CPT/HCPCS: 88142; 87624

== ENCOUNTER 2024-06-14 15:22 | Outpatient (REF) | payer BC, SELFPAY ==
[2024-06-14 19:42] LABS: Hemoglobin A1C 5.9 % (<5.7)
[2024-06-14 20:38] LABS: ALT 29 U/L (14-59); AST 23 U/L (15-37); Albumin 3.5 g/dL (3.4-5.0); Alkaline Phosphatase 87 U/L (46-116); Anion Gap 8.2 mmol/L (3-11); BUN 12 mg/dL (7-18); Bilirubin, Total 0.3 mg/dL (0.2-1.0); CO2 27.8 mmol/L (21.0-32.0); CREATININE 0.9 mg/dL (0.55-1.02); Calcium 9.5 mg/dL (8.5-10.1); Calculated LDL 93 mg/dL (<100); Chloride 108 mmol/L (98-107); Cholesterol 192 mg/dL (<200); Estimated GFR 80.84 (mL/min/1.73m2); Glucose 136 mg/dL (74-106); HDL Cholesterol 59 mg/dL (>or=50); Potassium 4.2 mmol/L (3.5-5.1); Sodium 144 mmol/L (136-145); TSH 3.92 uIU/mL (0.36-3.74); Total Protein 7.3 g/dL (6.4-8.2); Triglyceride 202 mg/dL (<150)
== END 2024-06-14 15:23 | disposition home or self-care (01) ==
LOC: NCHCN 15:22
PROVIDERS: PCP Nurse Practitioner Family; Visit Provider Nurse Practitioner Family
DX: Z68.42 Body mass index [BMI] 45.0-49.9, adult (principal); E03.9 Hypothyroidism, unspecified; E28.2 Polycystic ovarian syndrome; Z13.220 Encounter for screening for lipoid disorders; E66.9 Obesity, unspecified
CPT/HCPCS: 80053; 80061; 83036; 84443

== ENCOUNTER 2024-10-17 13:31 | Outpatient (REF) | payer BC, SELFPAY ==
[2024-10-17 16:30] LABS: TSH (W/Ref FT4) 3.65 uIU/mL (0.36-3.74)
== END 2024-10-17 13:32 | disposition home or self-care (01) ==
LOC: NCHCN 13:31
PROVIDERS: PCP Nurse Practitioner Family; Visit Provider Nurse Practitioner Family
DX: E03.9 Hypothyroidism, unspecified (principal)
CPT/HCPCS: 84443

== ENCOUNTER 2024-12-03 05:30 | Emergency (ER) | payer BC, SELFPAY ==
[2024-12-03] VITALS (26 sets, daily range): BP systolic 125–154; BP diastolic 61–106; PULSE 60–87; RESP 7–18; TEMP 36.4; O2SAT 94–100
--- NOTE | 2024-12-03 05:30 | RT.EKG_ITS ---
APPROVED REPORT Exam: Resting ECG Reason for Exam: chest pain Patient Location: E HR:75 bpm ECG Measurements Heart Rate 75 AXIS MI 139 P 46 QRSd 98 QRS 17 QT 406 T 33 QTc 453 Conclusion Sinus rhythm...normal P axis, V-rate 60- 99 Normal Electrocardiogram
--- NOTE | 2024-12-03 05:34 | ED.GENADUL_ITS ---
Discharge Plan Discharge Details Chief Complaint: Chest Pain Primary Care Provider: MANDO SILVER ED Provider: Bertin Pendleton Home Meds and New Rx's Prescriptions: No Action Mirena 20 mcg/24 hours (7 yrs) 52 mg intrauterine device 1 insert intrauterine ONCE Qty: 1 0RF Rx Instructions: as a single dose nystatin 100,000 unit/gram powder 1 applic topical QID PRN Zepbound 5 mg/0.5 mL pen injector 5 mg subcut QWEEK acetaminophen [Tylenol Extra Strength] 500 mg tablet 500 mg PO Q6H PRN ibuprofen 600 mg tablet 600 mg PO Q6H PRN cholecalciferol (vitamin D3) [Vitamin D3] 400 UNIT tablet 800 unit PO DAILY omega 3-sjf-pob-fish oil [Fish Oil] 300-1,000 mg capsule,delayed release(DR/EC) 1 cap PO DAILY Qty: 120 4RF HPI General Mode of arrival: ambulatory . Date/Time Provider Initiated Documentation: 12/03/24 05:34 . Limitations to Documentation: no limitations . Information obtained by: patient, RN notes reviewed and old records reviewed . HPI Narrative: Patient presents to ED after waking up around 430 this morning with a pressure feeling wrapped around her back and chest. Describes it as the area where her bra strap would be. It is not pleuritic in nature. She does not feel short of breath. She developed nausea which concerned her especially since the pressure feeling did not rommel. She felt like there was some discomfort in her upper abdomen. She denies any leg pain or leg swelling. Denies any history of blood clot. She denies any history of diabetes, hypertension, high cholesterol. She is not a smoker. Denies any fever or cough, URI type symptoms. Related Data Home Medications ?Medication ?Instructions ?Recorded ?Confirmed cholecalciferol (vitamin D3) 10 800 unit PO DAILY 11/1012/03/24 mcg (400 unit) tablet (Vitamin D3) omega 9-gsd-eug-fish oil 300 1 cap PO DAILY #120 caps 01/22/19 12/03/24 mg-1,000 mg capsule,delayed release (Fish Oil) acetaminophen 500 mg tablet 500 mg PO Q6H PRN 12/30/20 12/03/24 (Tylenol Extra Strength) ibuprofen 600 mg tablet 600 mg PO Q6H PRN 12/30/20 0 12/03/24 levonorgestrel (Mirena) 1 insert intrauterine ONCE # 1 ea 02/14/21 12/03/24 nystatin 100,000 unit/gram topical 1 applic topical QI D PRN 08/09/23 12/03/24 powder tirzepatide (weight loss) 5 mg/0.5 5 mg subcut QWEEK 0 08/14/24 12/03/24 mL subcutaneous pen injector (Zepbound) Previous Rx's ?Medication ?Instructions ?Recorded omega 2-lit-vfj-fish oil 300 1 cap PO DAILY #120 caps 01/22/19 mg-1,000 mg capsule,delayed release (Fish Oil) levonorgestrel (Mirena) 1 insert intrauterine ONCE # 1 ea 02/14/21 Allergies Allergy/AdvReac Type Severity Reaction Status Date / Time pollen extracts AdvReac Intermediate congestion Verified 12/03/24 05:38 cilantro Allergy Severe Numb Uncoded 12/03/24 05:38 mouth, hives cigarette smoke AdvReac Intermediate congestion Uncoded 12/03/24 05:38 dust AdvReac Intermediate congestion Uncoded 12/03/24 05:38 General NATALI: 3 Exam Narrative Exam Narrative: Const: Obese female in NAD. VS per triage. HEENT: NC/AT. Normal facial exam. Neck: Supple. Trachea midline. Lungs: Normal respiratory effort. Lungs are clear. Cor: RRR without murmur. Good radial pulses. GI: Soft/ND. Mildly tender in the RUQ. Neuro: A+O x 3. Normal speech, mentation, gait. Cranial nerves II - XII grossly intact. No gross motor or sensory deficit. Ext: No C/C/E. Medical Decision Making Patient presenting to ED after waking up with a band around her chest and back in the area of where her bra would typically be. She developed some nausea and some abdominal discomfort as well. Her EKG is completely normal per my read. Her exam is significant for some mild right upper quadrant tenderness. She is low risk for PE and subsequently PERCs out. Do not think this is cardiac in nature but will obtain delta troponin. More suspicious that this is likely related to gallbladder. Will make her n.p.o. Provide ketorolac for pain control. She states nausea has resolved at this point. Laboratory studies, chest x-ray, right upper quadrant ultrasound ordered. 06:50 - Patient's labs are reassuring with no clinically significant abnormalities. Initial troponin normal. Patient will be signed out pending repeat troponin, chest x-ray, right upper quadrant ultrasound. Medical Records Medical records reviewed: Yes I reviewed the patient's medical records. Lab Data Lab results reviewed: Yes I reviewed the patient's lab results. ECG Data Attestation: I personally reviewed and interpreted this ECG (s) as follows: Prior ECG tracings: not available for review [facility] All Active Problems Skin candidiasis (Acute) Hypothyroid (Chronic) IUD (intrauterine device) in place (Acute) 12/26/20. [place] [facility] [place] Tubular adenoma of colon (Chronic 07/12/17) Subclinical hypothyroidism (Chronic 07/12/17) Medical History PCOS (polycystic ovarian syndrome) D[place] [facility] [place]. Treated with metformin. Discontinued metformin 2018 Hx of female infertility 09/2012. attempted conception. 01/2013. Rx Metformin/Levothyroxine. 05/2013. Nl semen analysis. 07/2013 Nl [facility]. [place] [facility] [place] Lousy experience. 2015 -2016 [facility]. Letrazole & GonalF w/ IUI. + IUP with SAB 17w. Incompetent cervix. 2016 -2017 has exhausted ovulation induction options. Not eligble for IVF 2/2 insurance. Adjustment disorder with mixed anxiety and depressed mood Bladder injury, open (~07/2018) At time of PC/S. Repaired and sow to gravity drainage till 08/05/18. No sequelae Cervical cerclage suture present 12/14/19 [place]ar[place] [facility] [place] Oligo-ovulation Gestational diabetes Wound dehiscence, (~07/2018) 07/23/18 PC/S with damage to dome of bladder. 2 days after annemarie removed wound opened. Was debrieded and wound vac in place till 08/28/18. 10/20/18 Rx with Silver Nitrate to granulation tissue @ L lateral margin delivery, delivered, current hospitalization Reactive depression (situational) Brief suicidal ideation after 's request for divorce. Patient not in need of inpatient treatment or medication referral to counseling provided. Other social stressor Hypothyroidism (acquired) Normal first trimester TSH needs a repeat TSH with reflex free T4 Surgical History Status post primary low transverse section Non-reassuring FHR tracing. Injury to dome of bladder which was repaired at time of delivery. Laceration to cervix, also repaired at time of delivery. 2020. rLTCS after abdominal cerclage placement Status post debridement Colonoscopy - IV Sedation (12/01/15) Family History Mother Essential hypertension Trigeminal neuralgia of right side of face Lupus (systemic lupus erythematosus) Father Diabetes Essential hypertension Brother Colon polyps Social History Smoking/Tobacco Use Status: Never Smoking risk assessment performed?: Yes Alcohol Intake: current Alcohol Intake frequency: a few times a month Drug use: Never Substance use type: does not use Adopted: No Foster care: No Household members: spouse, children and other Details: Juwan Vieira D-Cordelia. 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 [employer] Pets and animals: Yes (2 cats) What is your relationship status?: Panel score (0-1 are the most socially isolated patients): 1 What type of physical activity do you participate in: none Special josef needs: No Agree to transfusion: Yes Seatbelt use: always Helmet use: Yes Drive intox or ride w/intox route delivery service driver: No Water heater temp set <120 deg: Yes Working smoke detector in home: Yes Fire extinguisher in home: Yes Carbon monox detector in home: Yes Firearms in home: No Do you feel safe at home: Yes Do you feel safe in your relationship?: Yes Victim of physical abuse: No Victim of emotional abuse: No Victim of sexual abuse: No Female Reproductive History Menstrual control method: progestin IUCD History History 3 Para 1 Hx # Term Pregnancies 2 Multiple births 0 Hx # Pregnancies Ectopic pregnancies AB induced 0 Hx Number of Living Children 2 AB spontaneous 1 Past Pregnancies Del. Date GA/Weeks # Preg Succ Route Wgt Sex Labor Lgth Anesth esia Location Prov Complic 08/12/16 19 No vaginal Male 07/26/18 No 4110.681 g Male 24hrs regional other KP/AOC 12/25/20 38 No 3160 g Female [facility] [place] Delivery Date: 08/12/16 Last Updated by: Anya Bradford M.D. IVF . Painless cervical dilatation at 18-6/7 weeks. Membranes prolapsing into the vagina at time of initial presentation. Went on to have an induction of labor delivered a non-viable named Amador Catherine. Delivery Date: 07/26/18 Last Updated by: Cornelia Jamison CNM LTCS for non-reassuring FHR @ 2+ station. Injury to dome of bladder and anterior wall of cervix, Wound dehiscence with Post -op debridement, wound vac. son 'Alex'. Delivery Date: 12/25/20 Last Updated by: Anya Bradford M.D. Planned repeat c/s secondary to abdominal cerclage. Julianne.
[2024-12-03] MEDS: Normal Saline 500 ML IV (06:03)
[2024-12-03] MEDS: Ketorolac 15 MG/ML VIAL IVP (06:04)
[2024-12-03 06:08] LABS: Abs Immature Grans 0.04 10^3/uL (0.0-0.06); HCT 37.8 % (36.0-46.0); HGB 12.6 g/dL (11.2-15.7); Immature Grans % 0.5 %; MCH 28.6 pg (27.0-33.0); MCHC 33.3 % (32.0-36.0); MCV 86 fL (80-95); MPV 10.5 fL (8.0-11.0); Platelet Count 189 10^3/uL (130-400); RBC 4.40 10^6/uL (3.93-5.22); RDW 13.3 % (11.7-14.6); RDW-SD 41.6 fL; WBC 7.54 10^3/uL (4.4-10.8)
--- NOTE | 2024-12-03 06:15 | DI.US_ITS ---
Exam(s) US ABDOMEN LIMITED EXAM: US ABDOMEN LIMITED CLINICAL HISTORY: RUQ tenderness TECHNIQUE: Ultrasound abdomen performed using standard protocol. COMPARISON: No exams were available for comparison FINDINGS: PANCREAS: Normal where visualized. LIVER: There is increased echogenicity of the liver consistent with fatty infiltration. Hepatopetal flow in the Portal Vein. The liver measures in 17.4 cm length. No evidence of a hepatic mass. GALLBLADDER:There is a 2.3 cm immobile bile stone in the neck of the gallbladder. No evidence of wall thickening. No pericholecystic fluid identified. BILIARY SYSTEM: Common bile duct measures < 7 mm. No intrahepatic biliary ductal dilation. GOMEZ'S SIGN: Negative. RIGHT KIDNEY: Kidney is normal in size. No evidence of renal calculi. No evidence of hydronephrosis. There is a 1.4 cm simple cyst in the inferior pole of the right kidney. No follow-up is recommended. ASCITES: None seen. IMPRESSION: 1. Immobile bile gallstone in the neck of the gallbladder. No sonographic evidence to suggest acute cholecystitis. There is a negative sonographic Gomez sign. No biliary ductal dilatation is seen. 2. The preliminary [facility] report was reviewed. DATA REPOSITORY:
--- NOTE | 2024-12-03 06:15 | DI.RAD_ITS ---
Exam(s) XR CHEST 2V PA LATERAL EXAM: XR CHEST 2V PA LATERAL CLINICAL HISTORY: CP TECHNIQUE: 2D digital imaging was performed of the chest. Two images were obtained. PA and lateral views were obtained. COMPARISON: No exams were available for comparison FINDINGS: MEDIASTINUM: Normal. HEART: Normal. PULMONARY VASCULATURE: Normal. LUNGS: There is a 1.7 cm nodule on the right. On the lateral view may lie within the superior segment of the right lower lobe. The lungs are otherwise clear. PLEURAL SPACE: No pleural effusion or pneumothorax. BONE:Within normal limits for the patient's age. OTHER FINDINGS:Normal. IMPRESSION: 1. There are no focal consolidating infiltrates. 2. 1.7 cm right pulmonary nodule. CT scan of the chest is recommended for further evaluation. 3. The preliminary [facility] report was reviewed. Unexpected findings DATA REPOSITORY: RADIATION DOSE DELIVERED:
[2024-12-03 06:23] LABS: HCG Qual (Serum) Negative
[2024-12-03 06:28] LABS: ALT 29 U/L (14-59); AST 20 U/L (15-37); Albumin 3.4 g/dL (3.4-5.0); Alkaline Phosphatase 76 U/L (46-116); Anion Gap 6.9 mmol/L (3-11); BUN 15 mg/dL (7-18); Bilirubin, Total 0.5 mg/dL (0.2-1.0); CO2 29.1 mmol/L (21.0-32.0); Calcium 8.6 mg/dL (8.5-10.1); Chloride 106 mmol/L (98-107); Estimated GFR 93.12 (mL/min/1.73m2); Glucose 127 mg/dL (74-106); Lipase 39 U/L (<78); Magnesium 2.1 mg/dL (1.8-2.4); Potassium 3.4 mmol/L (3.5-5.1); Sodium 142 mmol/L (136-145); Total Protein 7.2 g/dL (6.4-8.2); Troponin I 5 ng/L (<or=51)
--- NOTE | 2024-12-03 07:15 | ED.PROG_ITS ---
Date of service: 12/03/24 Time of Service: 07:16 Medical Decision Making I received signout on this 44-year-old female in the emergency department with chest pressure that wraps around her chest and back in the distribution of her bra with associated upper abdominal discomfort and nausea. EKG is normal. Labs are unremarkable including initial troponin which is normal. Tender in the right upper quadrant. Repeat troponin, chest x-ray, right upper quadrant ultrasound pending. 7:43 AM I met with the patient. She felt markedly improved. Her pain resolved. She was not nauseous. Her right upper quadrant ultrasound was notable for a stone in the neck of the gallbladder. Will touch base with general surgery to arrange close outpatient follow-up as patient has reassuring LFTs and is now pain-free. 9:35 AM Patient was found to have pulmonary nodule on chest x-ray for which radiology recommended a CT scan. Her CT scan showed a 2 cm lobulated soft tissue density in the right upper lobe. Radiology recommended interval 3-month follow-up. I was in touch with Dr. Celestin from pulmonology who help to arrange close follow- up. I was also in touch with Dr. Richard from general surgery who will arrange close outpatient follow-up. Patient I discussed that she should return for any abdominal pain or fevers. We discussed that she should stick to a light diet. We also discussed that if she develops shortness of breath she should return to the ED. Discharge Plan Disposition Patient Disposition: Home Discharge Details Clinical Impression: Cholelithiasis, Intermittent right upper quadrant abdominal pain, Pulmonary nodule 1 cm or greater in diameter Primary Care Provider: MANDO SILVER ED Provider: Amilcar Stewart Home Meds and New Rx's Prescriptions: Continued Mirena 20 mcg/24 hours (7 yrs) 52 mg intrauterine device 1 insert intrauterine ONCE Qty: 1 0RF Rx Instructions: as a single dose nystatin 100,000 unit/gram powder 1 applic topical QID PRN Zepbound 5 mg/0.5 mL pen injector 5 mg subcut QWEEK acetaminophen [Tylenol Extra Strength] 500 mg tablet 500 mg PO Q6H PRN ibuprofen 600 mg tablet 600 mg PO Q6H PRN cholecalciferol (vitamin D3) [Vitamin D3] 400 UNIT tablet 800 unit PO DAILY omega 9-ytc-kcl-fish oil [Fish Oil] 300-1,000 mg capsule,delayed release(DR/EC) 1 cap PO DAILY Qty: 120 4RF Discharge Instructions Instructions: Gallstones Additional Instructions: You were seen in the emergency department for your abdominal pain and chest pain. Your blood work showed no sign of a heart attack. You are found to have a gallstone in the neck of your gallbladder which is likely causing your symptoms. The general surgery clinic will call you to arrange close follow-up. As we discussed if you develop worsening pain fevers cannot eat or drink or if you have any other concerns please return to the emergency department. You are also found to have a pulmonary nodule. You will be seen tomorrow, December 04 at 1 PM in the pulmonary clinic at [facility] with Dr. Celestin. Discharge Data Discharge Date/Time-TO BE ENTERED AT DEPARTURE: 12/03/24 10:04
--- NOTE | 2024-12-03 07:22 | DI.[facility]_ITS ---
PROCEDURE INFORMATION: Exam: XR Chest Exam date and time: 12/03/2024 7:16 AM Age: 44 years old Clinical indication: Other: Cp TECHNIQUE: Imaging protocol: Radiologic exam of the chest. Views: 2 views. COMPARISON: No relevant prior studies available. FINDINGS: Lungs: There is a 1.7 cm nodular opacity projecting over the right mid lung at the level of the posterior right 6th intercostal space on the PA view. The lungs are otherwise clear. There is no consolidation or pulmonary edema. Pleural spaces: No pleural effusion or pneumothorax. Heart/Mediastinum: Heart size and cardiomediastinal contours are normal. Bones/joints: Unremarkable. IMPRESSION: 1.7 cm nodular opacity projecting over the right mid lung. Further evaluation with chest CT is suggested. Dictated and Authenticated by: Tata Lecuhga MD. Orderin Helder Denton MD
[2024-12-03 07:29] LABS: Troponin I 5 ng/L (<or=51)
--- NOTE | 2024-12-03 07:46 | DI.[facility]_ITS ---
PROCEDURE INFORMATION: Exam: US Abdomen, Limited; Right Upper Quadrant Exam date and time: 12/03/2024 7:09 AM Age: 44 years old Clinical indication: Other: Ruq tenderness TECHNIQUE: Imaging protocol: Real time ultrasound of the abdomen with image documentation. Limited exam focused on the right upper quadrant. COMPARISON: No relevant prior studies for comparison. FINDINGS: Liver: Top-normal in size, measuring 17.4 cm in length. The hepatic parenchyma is diffusely increased in echogenicity, consistent with hepatic steatosis. No masses are seen. Gallbladder: There is a non-mobile shadowing calculus in the gallbladder neck which measures approximately 2.3 cm in diameter. Gallbladder wall thickness is normal. No pericholecystic fluid is seen. 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 Biliary ducts: No intrahepatic or extrahepatic biliary ductal dilatation. The common bile duct measures up to 3 mm in diameter. Pancreas: The visualized head and body of the gland are unremarkable. The tail is obscured by artifact from overlying bowel gas. Right kidney: Normal in size, measuring 12 cm sagittal x 5.8 cm AP x 7.4 cm TRV. No hydronephrosis. No calculi or suspicious masses. 1.5 cm simple-appearing cortical cyst in the lower pole. Portal venous: The main portal vein is patent, with appropriate hepatopedal flow. IMPRESSION: 1. Cholelithiasis with a nonmobile calculus in the gallbladder neck. No evidence of acute cholecystitis. 2. Hepatic steatosis. Dictated and Authenticated by: Tata Lechuga MD. Orderin Helder Denton MD
--- NOTE | 2024-12-03 08:59 | DI.CT_ITS ---
Exam(s) CT CHEST WO EXAM: CT CHEST WO CLINICAL HISTORY: Pulmonary nodule. TECHNIQUE: Imaging protocol: Axial computed tomography images were obtained and coronal and sagittal reformatted images were created and reviewed. Lung Computer Aided Detection (CAD) was utilized. COMPARISON: CR,XR XR CHEST 2V PA LATERAL from 12/03/2024 FINDINGS: Tracheobronchial tree: Patent where visualized. No bronchiectasis is present. Pulmonary parenchyma: There is a small calcified granuloma in the apex of the left upper lobe. There is a 2 cm lobulated soft tissue nodule in the right upper lobe (series 2, image 62). There is no associated calcification. No other pulmonary nodules are present. There are no focal consolidating in filtrates. Mediastinum and Yamilex: No dominant adenopathy or fluid collection. The esophagus is unremarkable. Thyroid gland: Unremarkable. Pleura: No effusion or pneumothorax. Heart: The heart is not dilated. No coronary artery calcifications are seen. No pericardial effusion. Aorta: Thoracic aorta non-dilated. Upper abdomen: There is fatty infiltration of the liver. Lymph nodes: Within normal limits. Soft tissues: Unremarkable. Bones:Within normal limits for the patient's age. IMPRESSION: 1. 2 cm lobulated noncalcified nodule in the right upper lobe. This corresponds to the finding seen on the CT chest x-ray from the same day. Differential considerations include an infectious or inflammatory nodule, pulmonary neoplasm, pulmonary AVM. Less likely a rounded pneumonia. 2. No thoracic adenopathy. For solitary solid noncalcified nodules larger than 8 mm in diameter, consider 3-month follow-up, work-up with combined positron emission tomography (PET) and CT (PET/CT), tissue sampling, or a combination thereof; any one of these options may be appropriate depending on size, morphology, comorbidity, and other factors. (grade 1A; strong recommendation, high-quality evidence). (Soham et al., 2017) RADIATION DOSE DELIVERED: 376.37mGy.cm Total DLP 376.37mGy.cm Total DLP DATA REPOSITORY: All CT scans at this facility are submitted to the National Radiology Data Registry (NRDR) Dose Index Registry (DIR) with the [employer] (ACR). RADIATION OPTIMIZATION: All CT scans at this facility use at least one of these dose optimization techniques: automated exposure control; mA and/or kV adjustment per patient size (includes targeted exams where dose is matched to clinical indication); or iterative reconstruction.
== END 2024-12-03 10:04 | disposition home or self-care (01) ==
PROVIDERS: Emergency Medicine; Emergency Provider Emergency Medicine; PCP Nurse Practitioner Family
DX: R91.1 Solitary pulmonary nodule; K80.20 Calculus of gallbladder without cholecystitis without obstruction; R10.11 Right upper quadrant pain; R11.0 Nausea; R07.89 Other chest pain
CPT/HCPCS: 00123; 36415; 71250; 80053; 83690; 93005; 96361; 96374; 99284; 71046; 76705; 83735; 84484; 84703; 85025; 93010; J1885

== ENCOUNTER 2025-01-14 09:13 | Day surgery (SDC) | payer BC, SELFPAY ==
[2025-01-14] VITALS (24 sets, daily range): BP systolic 88–132; BP diastolic 46–102; PULSE 62–87; RESP 9–26; TEMP 36–36.5; O2SAT 92–100; BMI 40.4
--- NOTE | 2025-01-14 08:04 | W.PM.DSUDISC ---
Date of service: 01/14/25 Discharge Plan Disposition Patient Disposition: Home Condition: Stable Discharge Details Attending Provider: Rizwana Cohen Primary Care Provider: MANDO SILVER Home Meds and New Rx's Prescriptions: New hydrocodone-acetaminophen 5-325 mg tablet 1 tab PO Q6H PRNQty: 10 0RF sulfamethoxazole-trimethoprim [Bactrim DS] 800-160 mg tablet 1 tab PO BID Qty: 14 0RF Continued Mirena 20 mcg/24 hours (7 yrs) 52 mg intrauterine device 1 insert intrauterine ONCE Qty: 1 0RF Rx Instructions: as a single dose nystatin 100,000 unit/gram powder 1 applic topical QID PRN Zepbound 12.5 mg/0.5 mL pen injector 12.5 mg subcut QWEEK acetaminophen [Tylenol Extra Strength] 500 mg tablet 500 mg PO Q6H PRN ibuprofen 600 mg tablet 600 mg PO Q6H PRN cholecalciferol (vitamin D3) [Vitamin D3] 400 UNIT tablet 800 unit PO DAILY omega 0-zxv-cok-fish oil [Fish Oil] 300-1,000 mg capsule,delayed release(DR/EC) 1 cap PO DAILY Qty: 120 4RF Discharge Instructions Additional Instructions: Shower in 48 hours. Wash gently over steri-strips with soapy hands, rinse, pat dry. Don't peel strips or submerge them under water. The longer they stay on, the nicer the scars will heal. Ok to walk, climb stairs, and resume normal activities of daily living. Do not lift/push/pull more than 20lb for 4 weeks. Diet as tolerated, allow your body to naturally make adjustments in the bile flow after surgery. Eat your normal diet. Loose stools may occur. We will discuss them at follow up if still present in 2 weeks. Call or return for fever or incisional problems. You are at high risk for infection of your skin cuts. I sent an antibiotic that you need to take for 7 days. I prescribed this because your gallstone was so large that it resulted in contamination of the skin cuts as it was pulled from the body. I also had to make one extra skin incision to get the gallbladder out safely, so you have 5 port sites instead of 4. Activity:: as above Shower/Bathe:: 48 hours Diet:: As Tolerated Stand Alone Forms: Anesthesia Discharge Inst., Tonya Baer (DSU) Referrals: Rizwana Cohen MD [ [facility] STAFF PHYSICIAN, Surgery] - 01/30/25 1:00 pm DS: Diagnosis Discharge Diagnosis (1) Symptomatic cholelithiasis: Status: Acute
--- NOTE | 2025-01-14 10:00 | ANES.PREOP_ITS ---
General Info Date of Service Date Performed: 01/14/25 Height: 6 ft 1 in Weight: 139.1 kg Body Mass Index (BMI): 40.4 Surgical Procedure: Operation Date: 01/14/25 11:10 Proposed Procedure Side Surgeon p Cholecystectomy Laparoscopic Rizwana Cohen MD Meds Allergies and Home Medications Allergies Allergy/AdvReac Type Severity Reaction Status Date / Time pollen extracts AdvReac Intermediate congestion Verified 01/14/25 09:40 cilantro Allergy Severe Numb Uncoded 01/14/25 09:40 mouth, hives cigarette smoke AdvReac Intermediate congestion Uncoded 01/14/25 09:40 dust AdvReac Intermediate congestion Uncoded 01/14/25 09:40 Home Medication ?Medication ?Instructions ?Recorded cholecalciferol (vitamin D3) 10 800 unit PO DAILY 11/10 11/26 mcg (400 unit) tablet (Vitamin D3) omega 9-log-llc-fish oil 300 1 cap PO DAILY #120 caps 01/22/19 mg-1,000 mg capsule,delayed release (Fish Oil) acetaminophen 500 mg tablet 500 mg PO Q6H PRN 12/30/20 (Tylenol Extra Strength) ibuprofen 600 mg tablet 600 mg PO Q6H PRN 12/30/20 levonorgestrel (Mirena) 1 insert intrauterine ONCE # 1 ea 02/14/21 nystatin 100,000 unit/gram topical 1 applic topical QI D PRN 08/09/23 powder tirzepatide (weight loss) 12.5 12.5 mg subcut QWEEK mg/0.5 mL subcutaneous pen injector (Zepbound) hydrocodone 5 mg-acetaminophen 325 1 tab PO Q6H PRN #1 0 tabs 01/14/25 mg tablet Current Visit Medications: Current Medications Generic Name Dose Route Start Last Admin Trade Name Freq PRN Reason Stop Dose Admin Ringer's Solution 1,000 mls @ 80 mls/hr 01/14/25 06:00 IV 02/10/25 23:59 INFUSION RISHI Cefazolin Sodium 3,000 mg/ 100 mls @ 200 mls/hr 01/14/25 06:00 Sodium Chloride IV 02/10/25 23:59 PREOP RISHI IV Miscellaneous Supplies 1 each 01/14/25 06:00 Iv Access IV 02/10/25 23:59 DIRECTED RISHI Sodium Chloride 0 ml 01/14/25 06:00 Normal Saline Flush 10 Ml Syr IV 02/10/25 23:59 PRN PRN Sodium Chloride 0 ml 01/14/25 06:00 Normal Saline 10 Ml Vial IJ 02/10/25 23:59 DIRECTED PRN Sterile Water 0 ml 01/14/25 06:00 Water,Injection,Sterile 10 Ml Vial IJ 02/10/25 23:59 DIRECTED PRN PFSH Active Problems Active Problems: Problem Status Onset Code Symptomatic cholelithiasis Acute K80.20 Skin candidiasis Acute B37.2 Hypothyroid Chronic E03.9 IUD (intrauterine device) in place Acute Z97.5 Tubular adenoma of colon Chronic 07/12/17 D12.6 Subclinical hypothyroidism Chronic 07/12/17 E03.9 BMI 45.0-49.9, adult Resolved Medical History Medical History PCOS (polycystic ovarian syndrome) Dx at [facility] [place]. Treated with metformin. Discontinued metformin 2018 Hx of female infertility 09/2012. attempted conception. 01/2013. Rx Metformin/Levothyroxine. 05/2013. Nl semen analysis. 07/2013 Nl [facility]G. 11/2013 [facility] [place]. Lousy experience. 2015 -2016 [facility]. Letrazole & GonalF w/ IUI. + IUP with SAB 17w. Incompetent cervix. 2016 -2017 has exhausted ovulation induction options. Not eligble for IVF 2/2 insurance. Adjustment disorder with mixed anxiety and depressed mood Bladder injury, open (~07/2018) At time of PC/S. Repaired and sow to gravity drainage till 08/05/18. No sequelae Cervical cerclage suture present 12/14/19 Laparoscopic cervical cerclage at [facility] [place]. Oligo-ovulation Gestational diabetes Wound dehiscence, (~07/2018) 07/23/18 PC/S with damage to dome of bladder. 2 days after annemarie removed wound opened. Was debrieded and wound vac in place till 08/28/18. 10/20/18 Rx with Silver Nitrate to granulation tissue @ L lateral margin delivery, delivered, current hospitalization Reactive depression (situational) Brief suicidal ideation after 's request for divorce. Patient not in need of inpatient treatment or medication referral to counseling provided. Other social stressor Hypothyroidism (acquired) Normal first trimester TSH needs a repeat TSH with reflex free T4 Surgical History Surgical History H/O abdominal surgery Transabdominal cerclage Status post primary low transverse section Non-reassuring FHR tracing. Injury to dome of bladder which was repaired at time of delivery. Laceration to cervix, also repaired at time of delivery. 2020. rLTCS after abdominal cerclage placement Status post debridement Colonoscopy - IV Sedation (12/01/15) Tobacco Smoking/Tobacco Use Status: Never Passive smoking exposure: No Alcohol Alcohol Intake: current Alcohol intake frequency: holidays/special occasions only Substance Use Substance use: Never Substance use type: does not use Details: alcohol: unknown Prental History History 3 Para 1 Hx # Term Pregnancies 2 Multiple births 0 Hx # Pregnancies Ectopic pregnancies AB induced 0 Hx Number of Living Children 2 AB spontaneous 1 Past Pregnancies Del. Date GA/Weeks # Preg Succ Route Wgt Sex Labor Lgth Anesth esia Location Prov Complic 08/12/16 19 No vaginal Male 07/26/18 No 4110.681 g Male 24hrs regional other /AO 12/25/20 38 No 3160 g Female [facility] Delivery Date: 08/12/16 Last Updated by: Anya Bradford M.D. IVF . Painless cervical dilatation at 18-6/7 weeks. Membranes prolapsing into the vagina at time of initial presentation. Went on to have an induction of labor delivered a non-viable named Amador Catherine. Delivery Date: 07/26/18 Last Updated by: Cornelia Jamison CNM LTCS for non-reassuring FHR @ 2+ station. Injury to dome of bladder and anterior wall of cervix, Wound dehiscence with Post -op debridement, wound vac. son 'Alex'. Delivery Date: 12/25/20 Last Updated by: Anya Bradford M.D. Planned repeat c/s secondary to abdominal cerclage. Julianne. Vital Signs and Lab Results Vital Signs Most Recent Vital Signs in EMR: Most Recent Vital Signs Temp Pulse Resp BP Pulse Ox 36.5 C 87 16 121/96 H 98 01/14/25 09:46 01/14/25 09:46 01/14/25 09:46 01/14/25 09:46 01/14/25 09:46 Imaging and Studies Imaging and Studies Study information below may be from another EMR and interpreted by another provider. Please see original notes in EMR for more complete details. EKG Summary: 12-03-24 Exam: Resting ECG Reason for Exam: chest pain Patient Location: E HR:75 bpm ECG Measurements Heart Rate 75 AXIS WV 139 P 46 QRSd 98 QRS 17 QT 406 T33 QTc 453 Conclusion Sinus rhythm...normal P axis, V-rate 60- 99 Normal Electrocardiogram Anesthesia Assessment and Plan Anesthesia History Personal History: No History of Anesthesia Complications Family History: No Family History of Anesthesia Complications Exercise Tolerance Exercise Tolerance: Metabolic Equivalents>4 Pertinent Negatives Pertinent Negatives: No Symptoms of GERD Cardiac & Pulmonary Exam Cardiac Exam: Normal S1/S2 Heart Sounds Pulmonary Exam: Clear Bilateral Breath Sounds Implantable Cardiac Device Does patient have a Pacemaker or an ICD?: No Airway Exam Known Difficult Airway: No Mallampati Class: 2 Mouth Opening: Normal (> 3cm) Thyromental Distance: Greater than 3 cm Neck Range of Motion: Full ROM Neck Circumference: Normal Teeth Condition: Normal Dentition ASA Classification ASA Score: ASA 3 Emergency Case?: No NPO Status NPO Status: NPO Clears >2 hours, Solids >8 hours Status Status: Negative HCG Anesthesia Plan Resuscitation Status: Full Code Anesthesia Technique: General Anesthesia Airway Planned: Endotracheal Tube Monitors Used: Standard Monitors and SedLine
[2025-01-14] MEDS: Lactated Ringers 1,000 ML 80 ML IV (10:05)
[2025-01-14] MEDS: ceFAZolin 3,000 MG in Normal Saline 100 ML 200 MG IV (11:10)
[2025-01-14] MEDS: Bupivacaine 0.5% Pres-Free W/EPI 30 ML VIAL (11:57)
--- NOTE | 2025-01-14 12:14 | GB_PTH ---
PATIENT: Enedelia Jose LOC: [facility] U#:[id number] AGE/SX: 44/F ROOM: RE01/14/[address]: Rizwana Cohen MD : 1980 BED: DIS: 01/14/2025 SPEC #: [id number] RECD: 01/14/25 14:35 STATUS: MARIBEL REQ #: [id number] ELIEZER: 01/14/25 12:[address]: Rizwana Cohen DEPT: Surgical Specimen RECD BY: Neena Ward ENTERED: 01/14/25 14:35 SP TYPE: GB OTHR DR: MANDO SILVER NP Tissues: 1 - GALLBLADDER Procedures: GROSS AND MICRO LEVEL 3 Comments: [id number]
--- NOTE | 2025-01-14 13:17 | W.PM.OP ---
Operative Note Operative Note Procedure Description: Preoperative diagnosis: Symptomatic cholelithiasis Postoperative diagnosis: Symptomatic cholelithiasis Procedure: Laparoscopic cholecystectomy Surgeon: Rizwana Cohen MD Manager Of Disaster Recovery: WINSTON Chin Anesthesia: GETA + local EBL 30mL Specimen: Gallbladder Complications: None Notes: Long and intermediate length ports were used during this case. An additional 5mm port site was needed to visualize the operative field more closely. Gallstone was large and gallbladder punctured in process of removal from body, bag tore from stone size at the fascia and contamination of the incision occurred. Contamination was limited, it was washed and dried. Procedure Description: This is a 47-year-old female who presented to the office with chronic abdominal symptoms and gallstones. The evaluation yielded a diagnosis of symptomatic cholelithiasis. Cholecystectomy was indicated. We discussed the procedure risks, benefits, alternatives, and expectations. All of the patient's questions were answered to their satisfaction. Informed consent was obtained and the patient was transferred to the operating room. She was placed supine on the operating table. SCDs were placed and all pressure points were padded appropriately. General anesthesia was induced. The abdomen was clipped prepped and draped in the usual sterile fashion. Timeout was performed. Local anesthetic was infiltrated underneath the umbilicus. An incision was made in the skin and the incision carried down to the umbilical stalk using cautery. The umbilical stalk was elevated using a Petros clamp and the fascia cleared of its fatty tissues. An incision was made in the fascia, and a Alejandra clamp was used to enter the peritoneum. A finger was used to ensure no structures were adhered to the anterior abdominal wall. A Agudelo trocar was introduced and the abdomen was insufflated to 15 mmHg. Initial laparoscopy confirmed no injury to the intra-abdominal structures. 3 additional 5 mm ports were placed in the upper abdomen under direct visualization. Body habitus limited the positioning of the ports. A 4th port was placed above the umbilicus to get the camera more near the operative field. Local anesthetic was infiltrated at each port site. The patient's head was elevated and she was rotated toward the left. The gallbladder was elevated. The gallbladder dome was grasped and retracted cephalad. The infundibulum was grasped and retracted laterally and a dissection in Calot's triangle was pursued with a [place] dissector, [place] ligasure device, and a suction tool. 2 tubular structures were dissected free and skeletonized. A critical view was obtained and the gallbladder cystic duct and cystic artery were identified and confirmed. The cystic duct and cystic artery were clipped and transected with EndoShears. The liver fossa was irrigated and suctioned clean. The gallbladder was then removed from the liver bed with cautery and Ligasure. It was placed into an Endo Catch bag and removed from the abdomen through the umbilicus. The bag ruptured and contamination of the umbilical site occurred. It was washed and dried. The liver bed was examined and hemostasis assured. The patient taken out of reverse Trendelenburg position. The 5 mm ports were removed and the abdomen was desufflated. The umbilical trocar was removed. Incision of the umbilicus was extended with cautery to allow for extraction of the large stone. The umbilical fascia was closed with an 0 Vicryl suture in a [id number] stitch. The incisions were all closed with interrupted 4-0 Monocryl sutures in subcuticular fashion. The incisions were all washed and dried and Steri-Strips applied. The patient tolerated the procedure well. She extubated in the operating room and transferred to the recovery room in stable condition. There were no complications Date of Procedure: 01/14/25
--- NOTE | 2025-01-14 14:08 | W.ANESPOSTOP ---
Postoperative Evaluation Date, Time and Location Date Performed: 01/14/25 Time Performed: 14:08 Patient Location: PACU Vital Signs Most Recent Imported Vital Signs: Most Recent Vital Signs Temp Pulse Resp BP Pulse Ox 36.4 C L 66 14 119/67 100 01/14/25 13:54 01/14/25 13:56 01/14/25 13:56 01/14/25 13:56 01/14/25 13:56 Pain Score Most Recent Pain Score: Most Recent Pain Score Pain Level 0 01/14/25 13:54 Assessment Mental Status: Arousable with meaningful communication Airway and Respiratory Function: Patent airway with normal (patient baseline) respiratory exam Cardiovascular Function: Hemodynamically Stable Hydration Status: Adequately Hydrated Nausea & Vomiting: No Nausea or Vomiting Pain: Pain is tolerable per patient Peripheral Nerve Block: Patient did not receive a nerve block
== END 2025-01-14 15:49 | disposition home or self-care (01) ==
LOC: SUR 09:13
PROVIDERS: PCP Nurse Practitioner Family; Visit Provider Surgery
PROC: 0FT44ZZ Resection of Gallbladder, Percutaneous Endoscopic Approach (ICD-10-PCS; CPT 47562; principal; 2025-01-14 11:00)
DX: K80.10 Calculus of gallbladder with chronic cholecystitis without obstruction (principal)
CPT/HCPCS: 47562; 81025; 88304; J0131; J0690; J1100; J1885; J2003; J2371; J2405; J2704

== ENCOUNTER 2025-03-22 01:51 | Outpatient (CLI) | payer BC, SELFPAY ==
[2025-03-22] MEDS: Inhaler, Assist Device 1 EACH MC (11:54)
[2025-03-22] MEDS: Levalbuterol HFA 15 GM INH 4 PUFF IH (11:55)
--- NOTE | 2025-03-27 13:35 | W.PFT ---
Date of service: 03/22/25 Time of Service: 10:03 Pulmonary Function Test Result Indications: Pulmonary nodule Impression 1. Good patient effort was noted. ATS standards for reproducibility were met. 2. Normal spirometry. 3. Following the administration of a bronchodilator there was not a significant response 4. TLC was normal. No evidence of restrictive lung disease 5. DLCO was normal indicating normal alveolar gas exchange
== END 2025-03-22 01:52 | disposition home or self-care (01) ==
LOC: RT 01:51
PROVIDERS: PCP Nurse Practitioner Family; Visit Provider Internal Medicine Pulmonary Disease
DX: R91.1 Solitary pulmonary nodule (principal)
CPT/HCPCS: 94060; 94726; 94729